=== PATIENT | female | born 1940 | race American Indian/Alaskan Native ===

== ENCOUNTER 2016-04-15 02:34 | Inpatient (IN) | payer MEDICARE ==
[2016-04-15 04:14] LABS: Hematocrit 33.1 % (30.3-42.9); Hemoglobin 10.3 gm/dl (10.1-14.3); Mean Corpuscular HGB Conc 31 % (30-34); Mean Corpuscular Hemoglobin 29 pg (28-32); Mean Corpuscular Volume 95 fl (79-97); Platelet Count 191 K/mm3 (140-440); Red Blood Count 3.48 M/mm3 (3.65-5.03); Red Cell Distribution Width 17.9 % (13.2-15.2); White Blood Count 8.2 K/mm3 (4.5-11.0)
[2016-04-15] MEDS ORDERED: PROVENTIL IH ONE (04:20)
[2016-04-15] MEDS ORDERED: ATROVENT IH ONE (04:20)
[2016-04-15 04:27] LABS: BUN/Creatinine Ratio 5.34; Calcium 9.2 mg/dL (8.4-10.2); Potassium 5.3 mmol/L (3.6-5.0)
[2016-04-15 05:35] LABS: Basophils % (Manual) 0 % (0.0-1.8); Blastocytes % (Manual) 0 %; Eosinophils % (Manual) 0 % (0.0-4.3)
[2016-04-15 05:36] LABS: Diff Status Complete; Platelet Estimate Consistent w Auto; RBC Morphology Normal
--- NOTE | 2016-04-15 07:45 | Emergency Department Report ---
HPI - General Chief Complaint: Dyspnea/Respdistress Time Seen by Provider: 04/15/16 07:18 - HPI HPI: Chief complaint: Shortness Breath HPI: Patient is a 76-year-old female with a history of end-stage renal disease on hemodialysis, diabetes, hypertension and asthma who presents with shortness of breath. Patient is an extremely poor historian but apparently she was admitted to [facility] for similar complaint. EMS state her last dialysis was Sunday but patient is unsure. According to EMS patient was discharged yesterday from [facility]. Patient was given a nebulizer treatment in route which she states improved her breathing. Mode of arrival: EMS Source: Patient old chart and nursing notes Began: Unable to assess Duration: Context: See above Quality: Denies pain Severity: 0 out of 10 Improved with: Nebulizer treatment Worsened with: Laying flat Associated signs and symptoms: Patient states she had nausea and vomiting last week while she was admitted to the hospital. ED Past Medical Hx - Past Medical History Hx Hypertension: Yes Hx Diabetes: Yes Hx Renal Disease: Yes (dialysis MWF) Hx Asthma: Yes - Surgical History Additional Surgical History: hysterectomy. fistula to left upper arm - Social History Smoking Status: Never Smoker Substance Use Type: None - Medications Home Medications: Home Medications Medication Instructions Recorded Confirmed Last Taken Type Cholecalciferol (Vitamin D3) 2,000 units PO QDAY 04/20/13 04/15/16 Unknown History [D3-2000] Cinacalcet [Sensipar] 30 mg PO QDAY 04/20/13 04/15/16 Unknown History FLUoxetine HCL [PROzac] 20 mg PO DAILY 04/20/13 04/15/16 Unknown History Gabapentin 300 mg PO QHS 04/20/13 04/15/16 Unknown History Hydralazine HCl [hydrALAZINE] 100 mg PO TID 04/20/13 04/15/16 Unknown History Hydroxyzine HCl [hydrOXYzine] 25 mg PO Q4-6H PRN 04/20/13 04/15/16 Unknown History Lisinopril [Zestril TAB] 40 mg PO DAILY 04/20/13 04/15/16 Unknown History Loratadine [Claritin] 10 mg PO QDAY 04/20/13 04/15/16 Unknown History Metoprolol [Lopressor TAB] 100 mg PO DAILY 04/20/13 04/15/16 Unknown History Omeprazole [PriLOSEC] 40 mg PO DAILY 04/20/13 04/15/16 Unknown History Sennosides [Senna Lax] 8.6 mg PO PRN PRN 04/20/13 04/15/16 Unknown History Sevelamer Carbonate [Renvela] 800 mg PO TID 04/20/13 04/15/16 Unknown History cloNIDine [Catapres] 0.2 mg PO TID 04/20/13 04/15/16 Unknown History Albuterol Sulfate [Albuterol 0.63% 0.63 mg IH TID PRN #50 dose 04/23/13 Unknown Rx NEBS] amLODIPine [Norvasc] 10 mg PO DAILY #30 tab 04/23/13 04/15/16 Unknown Rx ALBUTEROL Inhaler [ProAir HFA 1 - 2 puff IH Q4H PRN #1 inha 09/02/15 04/15/16 Unknown Rx Inhaler] AtorvaSTATin [Lipitor] 40 mg PO QDAY 09/02/15 04/15/16 Unknown History Doxycycline Monohydrate 100 mg PO BID 09/02/15 04/15/16 Unknown History [Doxycycline Monohydrate CAP] Folic Acid/Vit B Comp W-C [Renal 1 cap PO QDAY 09/02/15 04/15/16 Unknown History Caps] LORazepam [Ativan] 0.5 mg PO Q8H PRN 09/02/15 04/15/16 Unknown History Ondansetron [Zofran TAB] 4 mg PO Q8HR PRN 09/02/15 04/15/16 Unknown History Prednisone [predniSONE 10 mg 10 mg PO .TAPER #1 tab.ds.pk 09/02/15 04/15/16 Unknown Rx (6-Day Pack, 21 Tabs)] Prednisone [predniSONE 10 mg 10 mg PO .TAPER #1 tab.ds.pk 03/24/16 04/15/16 Unknown Rx (6-Day Pack, 21 Tabs)] ED Review of Systems ROS: Stated complaint: DOUGLAS Other details as noted in HPI Comment: Unobtainable due to pts medical conditions Physical Exam - Physical Exam Vital Signs: Vital Signs 04/15/16 04/15/16 04/15/16 02:42 03:00 03:10 Temperature Pulse Rate 79 79 Respiratory 12 22 Rate Blood Pressure 142/69 Blood Pressure [Left] O2 Sat by Pulse 100 100 100 Oximetry 04/15/16 04/15/16 04/15/16 03:14 04:01 05:00 Temperature 98 F Pulse Rate 80 77 73 Respiratory 16 18 15 Rate Blood Pressure 119/62 104/64 Blood Pressure 140/73 [Left] O2 Sat by Pulse 98 99 95 Oximetry 04/15/16 04/15/16 05:45 06:00 Temperature Pulse Rate 75 73 Respiratory 15 14 Rate Blood Pressure 118/59 120/54 Blood Pressure [Left] O2 Sat by Pulse 98 100 Oximetry Physical Exam: GENERAL: The patient is elderly -[place]ir[place] female in no acute distress. HEENT: Normocephalic. Atraumatic. Extraocular motions are intact. Patient has moist mucous membranes. NECK: Supple. No meningitic signs are noted. There is no adenopathy noted. CHEST/LUNGS: Lateral wheezing. There is no respiratory distress noted. HEART/CARDIOVASCULAR: Regular. There is no tachycardia. There is no gallop rub or murmur. ABDOMEN: Abdomen is soft, nontender. Patient has normal bowel sounds. There is no abdominal distention. SKIN: There is no rash. There is no edema. There is no diaphoresis. NEURO: The patient is awake, alert, and oriented 2. The patient is cooperative. The patient has no focal neurologic deficits. The patient has normal speech. MUSCULOSKELETAL: There is no tenderness or deformity. There is no limitation range of motion. There is no evidence of acute injury. ED Course Vital Signs 04/15/16 04/15/16 04/15/16 02:42 03:00 03:10 Temperature Pulse Rate 79 79 Respiratory 12 22 Rate Blood Pressure 142/69 Blood Pressure [Left] O2 Sat by Pulse 100 100 100 Oximetry 04/15/16 04/15/16 04/15/16 03:14 04:01 05:00 Temperature 98 F Pulse Rate 80 77 73 Respiratory 16 18 15 Rate Blood Pressure 119/62 104/64 Blood Pressure 140/73 [Left] O2 Sat by Pulse 98 99 95 Oximetry 04/15/16 04/15/16 05:45 06:00 Temperature Pulse Rate 75 73 Respiratory 15 14 Rate Blood Pressure 118/59 120/54 Blood Pressure [Left] O2 Sat by Pulse 98 100 Oximetry - Reevaluation(s) Reevaluation #1: 04/15/16 07:58 Dr. Santiago consulted. Reevaluation #2: 04/15/16 After my initial exam of the patient, I was informed by the nurse the patient had suddenly become more short of breath and warm reexam she was sitting up with significant difficulty breathing and decreased decreased breath sounds throughout and diaphoresis. Patient was given nebulizer treatment and placed on BiPAP. Patient be admitted to the hospitalist and emergency dialysis arranged. ED Medical Decision Making - Lab Data Result diagrams: 04/15/16 03:53 04/15/16 03:53 Laboratory Tests 04/15/16 03:53 Calcium 9.2 Troponin T 0.149 H* Triglycerides 46 Cholesterol 154 LDL Cholesterol Direct 48 L HDL Cholesterol 97 H Cholesterol/HDL Ratio 1.58 - EKG Data -: EKG Interpreted by Me EKG shows normal: sinus rhythm Rate: normal (71) - EKG Data When compared to previous EKG there are: changes noted (peak T waves are new.) - Radiology Data interpreted by me: Chest x-ray shows pulmonary edema. Critical care attestation.: If time is entered above; I have spent that time in minutes in the direct care of this critically ill patient, excluding procedure time. ED Disposition Clinical Impression: Asthma exacerbation, Acute on chronic renal failure Disposition: OP ADMITTED IP TO THIS HOSP Is pt being admited?: Yes Does the pt Need Aspirin: Yes Condition: Serious Time of Disposition: 07:58 (admit to the hospitalist)
[2016-04-15] MEDS ORDERED: NACL 0.9% 1000 ML 100 ML IV PRN (07:54)
[2016-04-15] MEDS ORDERED: PROCRIT IV PRN (07:54)
--- NOTE | 2016-04-15 07:58 | Consultation ---
Medications and Allergies Allergies Allergy/AdvReac Type Severity Reaction Status Date / Time No Known Allergies Allergy Unverified 04/20/13 02:00 Home Medications Medication Instructions Recorded Confirmed Last Taken Type Cholecalciferol (Vitamin D3) 2,000 units PO QDAY 04/20/13 04/15/16 Unknown History [D3-2000] Cinacalcet [Sensipar] 30 mg PO QDAY 04/20/13 04/15/16 Unknown History FLUoxetine HCL [PROzac] 20 mg PO DAILY 04/20/13 04/15/16 Unknown History Gabapentin 300 mg PO QHS 04/20/13 04/15/16 Unknown History Hydralazine HCl [hydrALAZINE] 100 mg PO TID 04/20/13 04/15/16 Unknown History Hydroxyzine HCl [hydrOXYzine] 25 mg PO Q4-6H PRN 04/20/13 04/15/16 Unknown History Lisinopril [Zestril TAB] 40 mg PO DAILY 04/20/13 04/15/16 Unknown History Loratadine [Claritin] 10 mg PO QDAY 04/20/13 04/15/16 Unknown History Metoprolol [Lopressor TAB] 100 mg PO DAILY 04/20/13 04/15/16 Unknown History Omeprazole [PriLOSEC] 40 mg PO DAILY 04/20/13 04/15/16 Unknown History Sennosides [Senna Lax] 8.6 mg PO PRN PRN 04/20/13 04/15/16 Unknown History Sevelamer Carbonate [Renvela] 800 mg PO TID 04/20/13 04/15/16 Unknown History cloNIDine [Catapres] 0.2 mg PO TID 04/20/13 04/15/16 Unknown History Albuterol Sulfate [Albuterol 0.63% 0.63 mg IH TID PRN #50 dose 04/23/13 Unknown Rx NEBS] amLODIPine [Norvasc] 10 mg PO DAILY #30 tab 04/23/13 04/15/16 Unknown Rx ALBUTEROL Inhaler [ProAir HFA 1 - 2 puff IH Q4H PRN #1 inha 09/02/15 04/15/16 Unknown Rx Inhaler] AtorvaSTATin [Lipitor] 40 mg PO QDAY 09/02/15 04/15/16 Unknown History Doxycycline Monohydrate 100 mg PO BID 09/02/15 04/15/16 Unknown History [Doxycycline Monohydrate CAP] Folic Acid/Vit B Comp W-C [Renal 1 cap PO QDAY 09/02/15 04/15/16 Unknown History Caps] LORazepam [Ativan] 0.5 mg PO Q8H PRN 09/02/15 04/15/16 Unknown History Ondansetron [Zofran TAB] 4 mg PO Q8HR PRN 09/02/15 04/15/16 Unknown History Prednisone [predniSONE 10 mg 10 mg PO .TAPER #1 tab.ds.pk 09/02/15 04/15/16 Unknown Rx (6-Day Pack, 21 Tabs)] Prednisone [predniSONE 10 mg 10 mg PO .TAPER #1 tab.ds.pk 03/24/16 04/15/16 Unknown Rx (6-Day Pack, 21 Tabs)] Review of Systems Constitutional: fatigue, weakness, malaise Cardiovascular: shortness of breath, dyspnea on exertion, paroxysmal nocturnal dyspnea, decreased exercise tolerance Respiratory: shortness of breath, dyspnea on exertion, congestion, wheezing Exam - Vital Signs Vital signs: Vital Signs Pulse Ox 100 04/15/16 02:42 - Physical Exam Narrative exam: General appearance: well-developed, well-nourished EENT: ATNC Neck: Present: neck supple Respiratory: Clear to Ascultation Heart: regular, S1S2 Gastrointestinal: Present: normal. Absent: tenderness, distended Integumentary: no rash Neurologic: no focal deficit Musculoskeletal: Present: other (no edema) Psychiatric: cooperative Results - Lab Results 04/15/16 03:53 04/15/16 03:53 Most recent lab results Calcium 9.2 mg/dL (8.4-10.2) 04/15/16 03:53 Assessment and Plan Impression: * End stage renal disease * Asthma excascerbation * Hyperkalemia * Hypertension * Anemia secondary to ESRD * Secondary hyperparathyoridism Plan: * Hemodialysis today and tthsat * UF as tolerated * Epogen with dialysis * asthma control, needs pulmonary input * Continue home medications * Renal diet
[2016-04-15] MEDS ORDERED: ASPIRIN PO ONE (08:06)
[2016-04-15] MEDS ORDERED: ZOFRAN IV PRN (09:07)
[2016-04-15] MEDS ORDERED: MILK OF MAGNESIA PO PRN (09:07)
[2016-04-15] MEDS ORDERED: NORCO 5/325 PO PRN (09:07)
[2016-04-15] MEDS ORDERED: TYLENOL PO PRN (09:07)
[2016-04-15] MEDS ORDERED: DULCOLAX PR PRN (09:07)
--- NOTE | 2016-04-15 09:07 | History and Physical Report ---
History of Present Illness Date of examination: 04/15/16 Date of admission: 04/15/16 Chief complaint: shortness of breath History of present illness: Patient is a 76-year-old female with a history of end-stage renal disease on hemodialysis, diabetes, hypertension and asthma who presents with shortness of breath. Patient is an extremely poor historian but apparently she was admitted to [facility] for similar complaint. EMS state her last dialysis was Sunday but patient is unsure. According to EMS patient was discharged yesterday from [facility]. Patient was given a nebulizer treatment in route which she states improved her breathing. In the ER she was placed on BiPAP and was sent for emergent HD. Patient unable to provide any further details, she is getting admitted for further evaluation. Past History Past Medical History: diabetes, dialysis, ESRD, heart failure, hypertension, hyperlipidemia, other (bronchial asthma) Past Surgical History: cholecystectomy, Other (AV fistula) Social history: lives with family, full code. denies: smoking, alcohol abuse, prescription drug abuse Family history: hypertension Medications and Allergies Allergies Allergy/AdvReac Type Severity Reaction Status Date / Time No Known Allergies Allergy Unverified 04/20/13 02:00 Home Medications Medication Instructions Recorded Confirmed Last Taken Type Cholecalciferol (Vitamin D3) 2,000 units PO QDAY 04/20/13 04/15/16 Unknown History [D3-2000] Cinacalcet [Sensipar] 30 mg PO QDAY 04/20/13 04/15/16 Unknown History FLUoxetine HCL [PROzac] 20 mg PO DAILY 04/20/13 04/15/16 Unknown History Gabapentin 300 mg PO QHS 04/20/13 04/15/16 Unknown History Hydralazine HCl [hydrALAZINE] 100 mg PO TID 04/20/13 04/15/16 Unknown History Hydroxyzine HCl [hydrOXYzine] 25 mg PO Q4-6H PRN 04/20/13 04/15/16 Unknown History Lisinopril [Zestril TAB] 40 mg PO DAILY 04/20/13 04/15/16 Unknown History Loratadine [Claritin] 10 mg PO QDAY 04/20/13 04/15/16 Unknown History Metoprolol [Lopressor TAB] 100 mg PO DAILY 04/20/13 04/15/16 Unknown History Omeprazole [PriLOSEC] 40 mg PO DAILY 04/20/13 04/15/16 Unknown History Sennosides [Senna Lax] 8.6 mg PO PRN PRN 04/20/13 04/15/16 Unknown History Sevelamer Carbonate [Renvela] 800 mg PO TID 04/20/13 04/15/16 Unknown History cloNIDine [Catapres] 0.2 mg PO TID 04/20/13 04/15/16 Unknown History Albuterol Sulfate [Albuterol 0.63% 0.63 mg IH TID PRN #50 dose 04/23/13 Unknown Rx NEBS] amLODIPine [Norvasc] 10 mg PO DAILY #30 tab 04/23/13 04/15/16 Unknown Rx ALBUTEROL Inhaler [ProAir HFA 1 - 2 puff IH Q4H PRN #1 inha 09/02/15 04/15/16 Unknown Rx Inhaler] AtorvaSTATin [Lipitor] 40 mg PO QDAY 09/02/15 04/15/16 Unknown History Doxycycline Monohydrate 100 mg PO BID 09/02/15 04/15/16 Unknown History [Doxycycline Monohydrate CAP] Folic Acid/Vit B Comp W-C [Renal 1 cap PO QDAY 09/02/15 04/15/16 Unknown History Caps] LORazepam [Ativan] 0.5 mg PO Q8H PRN 09/02/15 04/15/16 Unknown History Ondansetron [Zofran TAB] 4 mg PO Q8HR PRN 09/02/15 04/15/16 Unknown History Prednisone [predniSONE 10 mg 10 mg PO .TAPER #1 tab.ds.pk 09/02/15 04/15/16 Unknown Rx (6-Day Pack, 21 Tabs)] Prednisone [predniSONE 10 mg 10 mg PO .TAPER #1 tab.ds.pk 03/24/16 04/15/16 Unknown Rx (6-Day Pack, 21 Tabs)] Active Meds: Active Medications Epoetin Oh (Procrit) 10,000 unit IV KIRSTEN PRN PRN Reason: hemodialysis Sodium Chloride (Nacl 0.9% 1000 Ml) 100 mls @ 999 mls/hr IV KIRSTEN PRN PRN Reason: Hypotension Review of System: Constitutional: no fever, no chills, no weight loss Ears, eyes, nose, mouth and throat: no nasal congestion, no nasal discharge, no sinus pressure, no vision change, no red eye. Neck: No neck pain or rigidity. Cardiovascular: No chest pain, no orthopnea, no palpitations, no leg swelling Respiratory: + shortness of breath, + cough, no congestion, no wheezing Gastrointestinal: no abdominal pain, no nausea, no vomiting Genitourinary : no dysuria, no hematuria Musculoskeletal: no joint swelling or muscle ache Integumentary: no rash, no pruritis Neurological: no parathesias, no numbness, no tingling Endocrine: no cold or heat intolerance, no polyuria or polydipsia Hematologic/Lymphatic: no easy bruising, no easy bleeding, no gland swelling Allergic/Immunologic: no urticaria, no angioedema. Exam - Physical Exam Narrative exam: GENERAL: This is an elderly -[place] female lying on bed appeared to be in no discomfort. HEENT: Normocephalic. Atraumatic. Extraocular motions are intact. No conjunctival congestion or icterus. Patient has moist mucous membranes. External auditory canal and nares patent bilaterally. NECK: Supple. Trachea midline. No JVD, thyromagaly or lymphadenopathy. CHEST/LUNGS: Diminished BS auscultated bilaterally. There is no respiratory distress noted, breathing nonlabored. No wheezes or rhonchi. HEART/CARDIOVASCULAR: Regular in rate and rhythm. PMI at the apex. There is no gallop rub or murmur. ABDOMEN: Abdomen is soft, nontender. Patient has normal bowel sounds. There is no abdominal distention. No organomagaly or rigidity. SKIN: There is no rash, no erythrema. There is no diaphoresis. Warm and dry. NEUROLOGY: The patient is awake, alert, and oriented. The patient is cooperative. The patient has normal speech. No focal motor deficit. MUSCULOSKELETAL: No joint effusion or tenderness. Muscle strength equal bilaterally. No muscle wasting. EXTRIMITY: No edema, cyanosis or clubbing. PSYCH: No depression or anxiety noted. Cooperative. - Constitutional Vitals: Temp Pulse Resp BP Pulse Ox 98 F 86 20 109/73 99 04/15/16 03:14 04/15/16 07:01 04/15/16 07:05 04/15/16 07:01 04/15/16 07:05 Results - Labs CBC & Chem 7: 04/15/16 03:53 04/16/16 07:11 Labs: Laboratory Last Values WBC 8.2 K/mm3 (4.5-11.0) 04/15/16 03:53 RBC 3.48 M/mm3 (3.65-5.03) L 04/15/16 03:53 Hgb 10.3 gm/dl (10.1-14.3) 04/15/16 03:53 Hct 33.1 % (30.3-42.9) 04/15/16 03:53 MCV 95 fl (79-97) 04/15/16 03:53 MCH 29 pg (28-32) 04/15/16 03:53 MCHC 31 % (30-34) 04/15/16 03:53 RDW 17.9 % (13.2-15.2) H 04/15/16 03:53 Plt Count 191 K/mm3 (140-440) 04/15/16 03:53 Add Manual Diff Complete 04/15/16 03:53 Total Counted 100 04/15/16 03:53 Seg Neutrophils % Customer Advisor 04/15/16 03:53 Seg Neuts % (Manual) 86.0 % (40.0-70.0) H 04/15/16 03:53 Band Neutrophils % 4.0 % 04/15/16 03:53 Lymphocytes % (Manual) 5.0 % (13.4-35.0) L 04/15/16 03:53 Reactive Lymphs % (Man) 0 % 04/15/16 03:53 Monocytes % (Manual) 5.0 % (0.0-7.3) 04/15/16 03:53 Eosinophils % (Manual) 0 % (0.0-4.3) 04/15/16 03:53 Basophils % (Manual) 0 % (0.0-1.8) 04/15/16 03:53 Metamyelocytes % 0 % 04/15/16 03:53 Myelocytes % 0 % 04/15/16 03:53 Promyelocytes % 0 % 04/15/16 03:53 Blast Cells % 0 % 04/15/16 03:53 Nucleated RBC % Not Reportable 04/15/16 03:53 Seg Neutrophils # Man 7.1 K/mm3 (1.8-7.7) 04/15/16 03:53 Band Neutrophils # 0.3 K/mm3 04/15/16 03:53 Lymphocytes # (Manual) 0.4 K/mm3 (1.2-5.4) L 04/15/16 03:53 Abs React Lymphs (Man) 0.0 K/mm3 04/15/16 03:53 Monocytes # (Manual) 0.4 K/mm3 (0.0-0.8) 04/15/16 03:53 Eosinophils # (Manual) 0.0 K/mm3 (0.0-0.4) 04/15/16 03:53 Basophils # (Manual) 0.0 K/mm3 (0.0-0.1) 04/15/16 03:53 Metamyelocytes # 0.0 K/mm3 04/15/16 03:53 Myelocytes # 0.0 K/mm3 04/15/16 03:53 Promyelocytes # 0.0 K/mm3 04/15/16 03:53 Blast Cells # 0.0 K/mm3 04/15/16 03:53 WBC Morphology Not Reportable 04/15/16 03:53 Hypersegmented Neuts Not Reportable 04/15/16 03:53 Hyposegmented Neuts Not Reportable 04/15/16 03:53 Hypogranular Neuts Not Reportable 04/15/16 03:53 Smudge Cells Not Reportable 04/15/16 03:53 Toxic Granulation Not Reportable 04/15/16 03:53 Toxic Vacuolation Not Reportable 04/15/16 03:53 Dohle Bodies Not Reportable 04/15/16 03:53 Pelger-Huet Anomaly Not Reportable 04/15/16 03:53 Tod Rods Not Reportable 04/15/16 03:53 Platelet Estimate Consistent w auto 04/15/16 03:53 Clumped Platelets Not Reportable 04/15/16 03:53 Plt Clumps, EDTA Not Reportable 04/15/16 03:53 Large Platelets Not Reportable 04/15/16 03:53 Giant Platelets Not Reportable 04/15/16 03:53 Platelet Satelliting Not Reportable 04/15/16 03:53 Plt Morphology Comment Not Reportable 04/15/16 03:53 RBC Morphology Normal 04/15/16 03:53 Dimorphic RBCs Not Reportable 04/15/16 03:53 Polychromasia Not Reportable 04/15/16 03:53 Hypochromasia Not Reportable 04/15/16 03:53 Poikilocytosis Not Reportable 04/15/16 03:53 Anisocytosis Not Reportable 04/15/16 03:53 Microcytosis Not Reportable 04/15/16 03:53 Macrocytosis Not Reportable 04/15/16 03:53 Spherocytes Not Reportable 04/15/16 03:53 Pappenheimer Bodies Not Reportable 04/15/16 03:53 Sickle Cells Not Reportable 04/15/16 03:53 Target Cells Not Reportable 04/15/16 03:53 Tear Drop Cells Not Reportable 04/15/16 03:53 Ovalocytes Not Reportable 04/15/16 03:53 Helmet Cells Not Reportable 04/15/16 03:53 [place] Bodies Not Reportable 04/15/16 03:53 [place] Rings Not Reportable 04/15/16 03:53 [place] Cells Not Reportable 04/15/16 03:53 Bite Cells Not Reportable 04/15/16 03:53 Crenated Cell Not Reportable 04/15/16 03:53 Elliptocytes Not Reportable 04/15/16 03:53 Acanthocytes (Spur) Not Reportable 04/15/16 03:53 Rouleaux Not Reportable 04/15/16 03:53 Hemoglobin C Crystals Not Reportable 04/15/16 03:53 Schistocytes Not Reportable 04/15/16 03:53 Malaria parasites Not Reportable 04/15/16 03:53 Hector Bodies Not Reportable 04/15/16 03:53 Hem Pathologist Commnt No 04/15/16 03:53 Sodium 136 mmol/L (137-145) L 04/15/16 03:53 Potassium 5.3 mmol/L (3.6-5.0) H 04/15/16 03:53 Chloride 86.0 mmol/L (98-107) L 04/15/16 03:53 Carbon Dioxide 30 mmol/L (22-30) 04/15/16 03:53 Anion Gap 25 mmol/L 04/15/16 03:53 BUN 46 mg/dL (7-17) H 04/15/16 03:53 Creatinine 8.6 mg/dL (0.7-1.2) H 04/15/16 03:53 Estimated GFR 5 ml/min 04/15/16 03:53 BUN/Creatinine Ratio 5.34 % 04/15/16 03:53 Glucose 156 mg/dL (65-100) H 04/15/16 03:53 Calcium 9.2 mg/dL (8.4-10.2) 04/15/16 03:53 Troponin T 0.149 ng/mL (0.00-0.029) H* 04/15/16 03:53 Triglycerides 46 mg/dL (2-149) 04/15/16 03:53 Cholesterol 154 mg/dL (50-199) 04/15/16 03:53 LDL Cholesterol Direct 48 mg/dL (50-130) L 04/15/16 03:53 HDL Cholesterol 97 mg/dL (40-59) H 04/15/16 03:53 Cholesterol/HDL Ratio 1.58 % 04/15/16 03:53 - Imaging and Cardiology Chest x-ray: report reviewed Assessment and Plan Assessment and plan: Acute respiratory failure * Likely due to asthma exacerbation and volume overload from end-stage renal disease * Treat underlying cause, oxygen supplementation, cont BiPAP Acute exacerbation of bronchial asthma/acute bronchitis * Oxygen titrate O2 sats to more than 90%, nebulizers, IV steroids * Consider pulmonary evaluation if needed Hypertension; moderate control * Resume home antihypertensives, when necessary hydralazine hyperkalemia * likley due to ESRD * cont to monitor Dyslipidemia; * resume lipid-lowering medications Peripheral neuropathy * resume gabapentin End-stage renal disease on hemodialysis * Nephrology consult, dialysis per schedule DVT prophylaxis; with heparin Patient full CODE STATUS, Plan of care discussed with the patient as well as the nurse. Advance Directives: Yes Plan of care discussed with patient/family: Yes
[2016-04-15] MEDS ORDERED: ATIVAN PO PRN (09:09)
[2016-04-15] MEDS ORDERED: ZOFRAN PO PRN (09:09)
[2016-04-15] MEDS ORDERED: SENOKOT PO PRN (09:09)
--- NOTE | 2016-04-15 09:21 | XRay Report ---
AP CHEST :04/15/16 04:01 CLINICAL: Difficulty breathing. COMPARISON:03/23/16 FINDINGS: Interval development of bilateral multilobar interstitial and alveolar lung opacities with greater opacities in the dependent portions of the lungs. Bilateral air bronchograms. The pulmonary vessels are indistinct. Heart is large. No tubes or lines. No pneumothorax. The bones and soft tissues are normal. IMPRESSION: Congestive heart failure with bilateral pulmonary edema.
[2016-04-15] MEDS ORDERED: ZOFRAN IV ONE (10:11)
[2016-04-15] MEDS ORDERED: ATARAX PO PRN (10:11)
[2016-04-15] MEDS ORDERED: NACL 0.9 (PRIMING MACHINE ONLY DIALYSIS) MC ONE (13:21)
[2016-04-15] MEDS ORDERED: NORVASC ONE (14:36)
[2016-04-15] MEDS ORDERED: ASPIRIN ONE (14:36)
[2016-04-15] MEDS ORDERED: PROzac ONE (14:36)
[2016-04-15] MEDS: LOPRESSOR PO SCH (14:43)
[2016-04-15] MEDS: ZESTRIL PO SCH (14:44)
[2016-04-15] MEDS: PEPCID PO SCH (14:44)
[2016-04-15] MEDS: RENVELA PO SCH ×2 (14:44→17:09)
[2016-04-15] MEDS: NORVASC PO SCH (14:44)
[2016-04-15] MEDS: Renal Caps PO SCH (14:44)
[2016-04-15] MEDS: PROzac PO SCH (14:44)
[2016-04-15] MEDS: SENSIPAR PO SCH (14:44)
[2016-04-15] MEDS: VITAMIN D3 PO SCH (14:44)
[2016-04-15] MEDS ORDERED: CATAPRES ONE (15:28)
[2016-04-15] MEDS ORDERED: APRESOLINE ONE (15:28)
[2016-04-15] MEDS: CATAPRES PO SCH ×2 (15:32→21:46)
[2016-04-15] MEDS: APRESOLINE PO SCH ×2 (15:34→21:46)
[2016-04-15] MEDS: DUONEB 0.5 MG-3 MG/3 ML SOLN IH SCH ×2 (15:37→19:42)
[2016-04-15] MEDS ORDERED: HEPARIN ONE (15:55)
[2016-04-15] MEDS: HEPARIN SUB-Q SCH ×2 (15:59→21:48)
[2016-04-15] MEDS ORDERED: LEVAQUIN 250MG/50ML 50 ML IV SCH (16:00)
[2016-04-15] MEDS: CLARITIN PO SCH (17:07)
[2016-04-15] MEDS: PULMICORT IH SCH (19:42)
[2016-04-15] MEDS: NEURONTIN PO SCH (21:46)
[2016-04-16] MEDS: DUONEB 0.5 MG-3 MG/3 ML SOLN IH SCH ×4 (01:39→20:58)
[2016-04-16] MEDS: HEPARIN SUB-Q SCH ×3 (05:47→22:00)
[2016-04-16] MEDS: RENVELA PO SCH ×3 (08:30→17:48)
[2016-04-16] MEDS: APRESOLINE PO SCH ×3 (08:30→20:19)
[2016-04-16] MEDS: CATAPRES PO SCH ×3 (08:30→20:19)
[2016-04-16] MEDS: PULMICORT IH SCH ×2 (08:34→20:58)
[2016-04-16] MEDS: LOPRESSOR PO SCH (10:36)
[2016-04-16] MEDS: PROzac PO SCH (10:36)
[2016-04-16] MEDS: ZESTRIL PO SCH (10:36)
[2016-04-16] MEDS: Renal Caps PO SCH (10:37)
[2016-04-16] MEDS: PEPCID PO SCH (10:37)
[2016-04-16] MEDS: VITAMIN D3 PO SCH (10:37)
[2016-04-16] MEDS: NORVASC PO SCH (10:38)
[2016-04-16] MEDS: SENSIPAR PO SCH (10:38)
[2016-04-16] MEDS: CLARITIN PO SCH (10:38)
[2016-04-16 10:40] LABS: BUN/Creatinine Ratio 5.08; Calcium 8.2 mg/dL (8.4-10.2); Chloride 85.4 mmol/L (98-107)
[2016-04-16] MEDS ORDERED: KAYEXALATE PO PRN (12:58)
[2016-04-16] MEDS ORDERED: CALCIUM GLUCONATE 2,000 MG in NACL 0.9% 100 ML IV ONE (12:59)
[2016-04-16] MEDS ORDERED: KAYEXALATE PO ONE (13:37)
--- NOTE | 2016-04-16 13:40 | Progress Note ---
Assessment and Plan Impression: * End stage renal disease * Asthma excascerbation * Hyperkalemia * Hypertension * Anemia secondary to ESRD * Secondary hyperparathyoridism Plan: * Hemodialysis q tthsat * UF as tolerated * Epogen with dialysis * asthma control, needs pulmonary input * Continue home medications * Renal diet Subjective Date of service: 04/16/16 Principal diagnosis: esrd Interval history: resting in bed today, feels better Objective - Exam Narrative Exam: General appearance: well-developed, well-nourished EENT: ATNC Neck: Present: neck supple Respiratory: Clear to Ascultation Heart: regular, S1S2 Gastrointestinal: Present: normal. Absent: tenderness, distended Integumentary: no rash Neurologic: no focal deficit Musculoskeletal: Present: other (no edema) Psychiatric: cooperative - Vital Signs Vital signs: Vital Signs - 12hr 04/16/16 04/16/16 04/16/16 01:52 05:09 06:39 Temperature 98.3 F Pulse Rate 66 Pulse Rate [ 67 Right Radial] Pulse Rate [ 67 Throughout] Respiratory 20 Rate Respiratory 18 Rate [ Throughout] Blood Pressure 144/63 [Right Arm] O2 Sat by Pulse 98 Oximetry 04/16/16 04/16/16 04/16/16 08:10 08:33 08:34 Temperature 98.5 F Pulse Rate Pulse Rate [ 68 Right Radial] Pulse Rate [ 70 Throughout] Respiratory 20 Rate Respiratory 16 Rate [ Throughout] Blood Pressure 137/65 [Right Arm] O2 Sat by Pulse 100 100 Oximetry 04/16/16 04/16/16 04/16/16 08:47 11:35 11:50 Temperature 98.4 F Pulse Rate 65 Pulse Rate [ 72 Right Radial] Pulse Rate [ 71 Throughout] Respiratory 20 Rate Respiratory 16 Rate [ Throughout] Blood Pressure 139/63 [Right Arm] O2 Sat by Pulse 100 Oximetry 04/16/16 04/16/16 13:22 13:32 Temperature Pulse Rate Pulse Rate [ Right Radial] Pulse Rate [ 64 62 Throughout] Respiratory Rate Respiratory 16 16 Rate [ Throughout] Blood Pressure [Right Arm] O2 Sat by Pulse Oximetry - Lab 04/15/16 03:53 04/16/16 07:11 Most recent lab results Calcium 8.2 mg/dL (8.4-10.2) L 04/16/16 07:11
[2016-04-16] MEDS: SODIUM BICARBONATE PO SCH ×2 (14:57→20:18)
--- NOTE | 2016-04-16 16:05 | Progress Note ---
Assessment and Plan Assessment and plan: Acute respiratory failure * Likely due to asthma exacerbation and volume overload from end-stage renal disease * Treat underlying cause, oxygen supplementation, cont BiPAP Acute exacerbation of bronchial asthma/acute bronchitis * Oxygen titrate O2 sats to more than 90%, nebulizers, IV steroids * consult pulmonary * Assess for home O2 requirement Hypertension; moderate control * Resume home antihypertensives, when necessary hydralazine hyperkalemia * likley due to ESRD * Place patient on sodium bicarbonate, and Kayexalate when necessary potassium more than 5.2 * Given 2 g of calcium gluconate, repeat k level today Dyslipidemia; * resume lipid-lowering medications Peripheral neuropathy * resume gabapentin End-stage renal disease on hemodialysis * Nephrology consult, dialysis per schedule DVT prophylaxis; with heparin Patient full CODE STATUS, Plan of care discussed with the patient as well as the nurse. History Interval history: Patient seen and examined. Medical records and medication list reviewed. No acute event overnight noted by the RN. Patient complains of difficulty breathing on minimal exertion. Patient is tolerating diet. She was recently admitted to [facility] for asthma exacerbation She states that she is having multiple at the Asthma during the winter She also wants to get evaluated for home O2 requirement Discussed plan of care at bedside with patient. Hospitalist Physical - Physical exam Narrative exam: GENERAL: This is an elderly -[place] female lying on bed appeared to be in no discomfort. HEENT: Normocephalic. Atraumatic. Extraocular motions are intact. No conjunctival congestion or icterus. Patient has moist mucous membranes. External auditory canal and nares patent bilaterally. NECK: Supple. Trachea midline. No JVD, thyromagaly or lymphadenopathy. CHEST/LUNGS: Diminished BS auscultated bilaterally. There is no respiratory distress noted, breathing nonlabored. No wheezes or rhonchi. HEART/CARDIOVASCULAR: Regular in rate and rhythm. PMI at the apex. There is no gallop rub or murmur. ABDOMEN: Abdomen is soft, nontender. Patient has normal bowel sounds. There is no abdominal distention. No organomagaly or rigidity. SKIN: There is no rash, no erythrema. There is no diaphoresis. Warm and dry. NEUROLOGY: The patient is awake, alert, and oriented. The patient is cooperative. The patient has normal speech. No focal motor deficit. MUSCULOSKELETAL: No joint effusion or tenderness. Muscle strength equal bilaterally. No muscle wasting. EXTRIMITY: No edema, cyanosis or clubbing. PSYCH: No depression or anxiety noted. Cooperative. - Constitutional Vitals: Temp Pulse Resp BP Pulse Ox 98.4 F 62 16 139/63 100 04/16/16 11:50 04/16/16 13:32 04/16/16 13:32 04/16/16 11:50 04/16/16 11:50 Results - Labs CBC & Chem 7: 04/15/16 03:53 04/16/16 07:11 Labs: Laboratory Last Values WBC 8.2 K/mm3 (4.5-11.0) 04/15/16 03:53 RBC 3.48 M/mm3 (3.65-5.03) L 04/15/16 03:53 Hgb 10.3 gm/dl (10.1-14.3) 04/15/16 03:53 Hct 33.1 % (30.3-42.9) 04/15/16 03:53 MCV 95 fl (79-97) 04/15/16 03:53 MCH 29 pg (28-32) 04/15/16 03:53 MCHC 31 % (30-34) 04/15/16 03:53 RDW 17.9 % (13.2-15.2) H 04/15/16 03:53 Plt Count 191 K/mm3 (140-440) 04/15/16 03:53 Add Manual Diff Complete 04/15/16 03:53 Total Counted 100 04/15/16 03:53 Seg Neutrophils % Ditcher Operator 04/15/16 03:53 Seg Neuts % (Manual) 86.0 % (40.0-70.0) H 04/15/16 03:53 Band Neutrophils % 4.0 % 04/15/16 03:53 Lymphocytes % (Manual) 5.0 % (13.4-35.0) L 04/15/16 03:53 Reactive Lymphs % (Man) 0 % 04/15/16 03:53 Monocytes % (Manual) 5.0 % (0.0-7.3) 04/15/16 03:53 Eosinophils % (Manual) 0 % (0.0-4.3) 04/15/16 03:53 Basophils % (Manual) 0 % (0.0-1.8) 04/15/16 03:53 Metamyelocytes % 0 % 04/15/16 03:53 Myelocytes % 0 % 04/15/16 03:53 Promyelocytes % 0 % 04/15/16 03:53 Blast Cells % 0 % 04/15/16 03:53 Nucleated RBC % Not Reportable 04/15/16 03:53 Seg Neutrophils # Man 7.1 K/mm3 (1.8-7.7) 04/15/16 03:53 Band Neutrophils # 0.3 K/mm3 04/15/16 03:53 Lymphocytes # (Manual) 0.4 K/mm3 (1.2-5.4) L 04/15/16 03:53 Abs React Lymphs (Man) 0.0 K/mm3 04/15/16 03:53 Monocytes # (Manual) 0.4 K/mm3 (0.0-0.8) 04/15/16 03:53 Eosinophils # (Manual) 0.0 K/mm3 (0.0-0.4) 04/15/16 03:53 Basophils # (Manual) 0.0 K/mm3 (0.0-0.1) 04/15/16 03:53 Metamyelocytes # 0.0 K/mm3 04/15/16 03:53 Myelocytes # 0.0 K/mm3 04/15/16 03:53 Promyelocytes # 0.0 K/mm3 04/15/16 03:53 Blast Cells # 0.0 K/mm3 04/15/16 03:53 WBC Morphology Not Reportable 04/15/16 03:53 Hypersegmented Neuts Not Reportable 04/15/16 03:53 Hyposegmented Neuts Not Reportable 04/15/16 03:53 Hypogranular Neuts Not Reportable 04/15/16 03:53 Smudge Cells Not Reportable 04/15/16 03:53 Toxic Granulation Not Reportable 04/15/16 03:53 Toxic Vacuolation Not Reportable 04/15/16 03:53 Dohle Bodies Not Reportable 04/15/16 03:53 Pelger-Huet Anomaly Not Reportable 04/15/16 03:53 Tod Rods Not Reportable 04/15/16 03:53 Platelet Estimate Consistent w auto 04/15/16 03:53 Clumped Platelets Not Reportable 04/15/16 03:53 Plt Clumps, EDTA Not Reportable 04/15/16 03:53 Large Platelets Not Reportable 04/15/16 03:53 Giant Platelets Not Reportable 04/15/16 03:53 Platelet Satelliting Not Reportable 04/15/16 03:53 Plt Morphology Comment Not Reportable 04/15/16 03:53 RBC Morphology Normal 04/15/16 03:53 Dimorphic RBCs Not Reportable 04/15/16 03:53 Polychromasia Not Reportable 04/15/16 03:53 Hypochromasia Not Reportable 04/15/16 03:53 Poikilocytosis Not Reportable 04/15/16 03:53 Anisocytosis Not Reportable 04/15/16 03:53 Microcytosis Not Reportable 04/15/16 03:53 Macrocytosis Not Reportable 04/15/16 03:53 Spherocytes Not Reportable 04/15/16 03:53 Pappenheimer Bodies Not Reportable 04/15/16 03:53 Sickle Cells Not Reportable 04/15/16 03:53 Target Cells Not Reportable 04/15/16 03:53 Tear Drop Cells Not Reportable 04/15/16 03:53 Ovalocytes Not Reportable 04/15/16 03:53 Helmet Cells Not Reportable 04/15/16 03:53 [place] Bodies Not Reportable 04/15/16 03:53 [place] Rings Not Reportable 04/15/16 03:53 Dell Cells Not Reportable 04/15/16 03:53 Bite Cells Not Reportable 04/15/16 03:53 Crenated Cell Not Reportable 04/15/16 03:53 Elliptocytes Not Reportable 04/15/16 03:53 Acanthocytes (Spur) Not Reportable 04/15/16 03:53 Rouleaux Not Reportable 04/15/16 03:53 Hemoglobin C Crystals Not Reportable 04/15/16 03:53 Schistocytes Not Reportable 04/15/16 03:53 Malaria parasites Not Reportable 04/15/16 03:53 Hector Bodies Not Reportable 04/15/16 03:53 Hem Pathologist Commnt No 04/15/16 03:53 Sodium 129 mmol/L (137-145) L D 04/16/16 07:11 Potassium 6.0 mmol/L (3.6-5.0) H 04/16/16 07:11 Chloride 85.4 mmol/L (98-107) L 04/16/16 07:11 Carbon Dioxide 26 mmol/L (22-30) 04/16/16 07:11 Anion Gap 24 mmol/L 04/16/16 07:11 BUN 29 mg/dL (7-17) H 04/16/16 07:11 Creatinine 5.7 mg/dL (0.7-1.2) H 04/16/16 07:11 Estimated GFR 9 ml/min 04/16/16 07:11 BUN/Creatinine Ratio 5.08 % 04/16/16 07:11 Glucose 151 mg/dL (65-100) H 04/16/16 07:11 Calcium 8.2 mg/dL (8.4-10.2) L 04/16/16 07:11 Troponin T 0.194 ng/mL (0.00-0.029) H* 04/16/16 13:44 Triglycerides 46 mg/dL (2-149) 04/15/16 03:53 Cholesterol 154 mg/dL (50-199) 04/15/16 03:53 LDL Cholesterol Direct 48 mg/dL (50-130) L 04/15/16 03:53 HDL Cholesterol 97 mg/dL (40-59) H 04/15/16 03:53 Cholesterol/HDL Ratio 1.58 % 04/15/16 03:53
[2016-04-16 19:14] LABS: BUN/Creatinine Ratio 6.25; Potassium 5.5 mmol/L (3.6-5.0)
[2016-04-16] MEDS: NEURONTIN PO SCH (22:19)
[2016-04-17] MEDS: DUONEB 0.5 MG-3 MG/3 ML SOLN IH SCH ×4 (02:09→20:32)
[2016-04-17 06:37] LABS: BUN/Creatinine Ratio 6.66; Calcium 8.3 mg/dL (8.4-10.2); Chloride 86.3 mmol/L (98-107); Potassium 4.6 mmol/L (3.6-5.0)
[2016-04-17] MEDS: HEPARIN SUB-Q SCH ×3 (06:37→22:46)
[2016-04-17] MEDS: PULMICORT IH SCH ×2 (08:30→20:32)
[2016-04-17] MEDS: SODIUM BICARBONATE PO SCH (08:52)
[2016-04-17] MEDS: RENVELA PO SCH ×3 (08:52→18:36)
[2016-04-17] MEDS: APRESOLINE PO SCH ×2 (08:53→15:08)
[2016-04-17] MEDS: CATAPRES PO SCH ×3 (08:53→22:20)
--- NOTE | 2016-04-17 09:02 | Progress Note ---
Assessment and Plan Impression: * End stage renal disease * Asthma excascerbation * Hyperkalemia * Hypertension * Anemia secondary to ESRD * Secondary hyperparathyoridism Plan: * Hemodialysis MWF and regular schedule q tthsat as outpatient * UF as tolerated * cxr pulm edema and chf * Epogen with dialysis * asthma control, needs pulmonary input * Continue home medications * Renal diet Subjective Date of service: 04/17/16 Principal diagnosis: esrd Interval history: resting in bed today, feels better Objective - Exam Narrative Exam: General appearance: well-developed, well-nourished EENT: ATNC Neck: Present: neck supple Respiratory: Clear to Ascultation Heart: regular, S1S2 Gastrointestinal: Present: normal. Absent: tenderness, distended Integumentary: no rash Neurologic: no focal deficit Musculoskeletal: Present: other (no edema) Psychiatric: cooperative - Vital Signs Vital signs: Vital Signs - 12hr 04/16/16 04/16/16 04/16/16 21:03 21:12 21:42 Temperature 98.3 F Pulse Rate Pulse Rate [ 72 Right Radial] Pulse Rate [ 69 Throughout] Respiratory 20 Rate Respiratory 16 Rate [ Throughout] Blood Pressure Blood Pressure 156/67 [Right Arm] O2 Sat by Pulse 100 100 Oximetry 04/16/16 04/17/16 04/17/16 22:00 01:44 02:07 Temperature 98.3 F Pulse Rate Pulse Rate [ 79 Right Radial] Pulse Rate [ 74 Throughout] Respiratory 18 Rate Respiratory 16 Rate [ Throughout] Blood Pressure Blood Pressure 174/76 [Right Arm] O2 Sat by Pulse 96 100 Oximetry 04/17/16 04/17/16 04/17/16 02:22 04:25 05:00 Temperature 98.4 F Pulse Rate 81 Pulse Rate [ 82 Right Radial] Pulse Rate [ 70 Throughout] Respiratory 18 Rate Respiratory 18 Rate [ Throughout] Blood Pressure Blood Pressure 168/70 [Right Arm] O2 Sat by Pulse 100 Oximetry 04/17/16 04/17/16 08:28 08:53 Temperature 98.8 F Pulse Rate 84 Pulse Rate [ 84 Right Radial] Pulse Rate [ Throughout] Respiratory 20 Rate Respiratory Rate [ Throughout] Blood Pressure 181/80 Blood Pressure 181/80 [Right Arm] O2 Sat by Pulse 100 Oximetry - Lab 04/15/16 03:53 04/17/16 05:20 Most recent lab results Calcium 8.3 mg/dL (8.4-10.2) L 04/17/16 05:20
[2016-04-17] MEDS ORDERED: SODIUM BICARBONATE PO PRN (09:53)
[2016-04-17] MEDS ORDERED: LEVAQUIN PO SCH (10:00)
[2016-04-17] MEDS: VITAMIN D3 PO SCH (11:18)
[2016-04-17] MEDS: ZESTRIL PO SCH (11:18)
[2016-04-17] MEDS: CLARITIN PO SCH (11:19)
[2016-04-17] MEDS: LOPRESSOR PO SCH (11:19)
[2016-04-17] MEDS: PROzac PO SCH (11:19)
[2016-04-17] MEDS: Renal Caps PO SCH (11:19)
[2016-04-17] MEDS: NORVASC PO SCH (11:20)
[2016-04-17] MEDS: SENSIPAR PO SCH (11:31)
[2016-04-17] MEDS: PEPCID PO SCH (11:31)
--- NOTE | 2016-04-17 12:44 | Consultation ---
History of Present Illness Reason for consult: dyspnea History of present illness: This is a female w hx of asthma ESRD on hd who came in w sob. She was found to be in volume fluid. She recd HD with improvement of dyspnea. She still reports some wheezing w excertion. She denies any sick contact. Denies any hx of intubation and reports compliance w inhalers at home. She reports no recent ER visit for her asthma alone. Past History Past Medical History: ESRD, hypertension Past Surgical History: Other (dialysis cath) Social history: other (lives at home) Family history: hypertension Medications and Allergies Allergies Allergy/AdvReac Type Severity Reaction Status Date / Time No Known Allergies Allergy Unverified 04/20/13 02:00 Home Medications Medication Instructions Recorded Confirmed Last Taken Type Cholecalciferol (Vitamin D3) 2,000 units PO QDAY 04/20/13 04/15/16 Unknown History [D3-2000] Cinacalcet [Sensipar] 30 mg PO QDAY 04/20/13 04/15/16 Unknown History FLUoxetine HCL [PROzac] 20 mg PO DAILY 04/20/13 04/15/16 Unknown History Gabapentin 300 mg PO QHS 04/20/13 04/15/16 Unknown History Hydralazine HCl [hydrALAZINE] 100 mg PO TID 04/20/13 04/15/16 Unknown History Hydroxyzine HCl [hydrOXYzine] 25 mg PO Q4-6H PRN 04/20/13 04/15/16 Unknown History Lisinopril [Zestril TAB] 40 mg PO DAILY 04/20/13 04/15/16 Unknown History Loratadine [Claritin] 10 mg PO QDAY 04/20/13 04/15/16 Unknown History Metoprolol [Lopressor TAB] 100 mg PO DAILY 04/20/13 04/15/16 Unknown History Omeprazole [PriLOSEC] 40 mg PO DAILY 04/20/13 04/15/16 Unknown History Sennosides [Senna Lax] 8.6 mg PO PRN PRN 04/20/13 04/15/16 Unknown History Sevelamer Carbonate [Renvela] 800 mg PO TID 04/20/13 04/15/16 Unknown History cloNIDine [Catapres] 0.2 mg PO TID 04/20/13 04/15/16 Unknown History Albuterol Sulfate [Albuterol 0.63% 0.63 mg IH TID PRN #50 dose 04/23/13 Unknown Rx NEBS] amLODIPine [Norvasc] 10 mg PO DAILY #30 tab 04/23/13 04/15/16 Unknown Rx ALBUTEROL Inhaler [ProAir HFA 1 - 2 puff IH Q4H PRN #1 inha 09/02/15 04/15/16 Unknown Rx Inhaler] AtorvaSTATin [Lipitor] 40 mg PO QDAY 09/02/15 04/15/16 Unknown History Doxycycline Monohydrate 100 mg PO BID 09/02/15 04/15/16 Unknown History [Doxycycline Monohydrate CAP] Folic Acid/Vit B Comp W-C [Renal 1 cap PO QDAY 09/02/15 04/15/16 Unknown History Caps] LORazepam [Ativan] 0.5 mg PO Q8H PRN 09/02/15 04/15/16 Unknown History Ondansetron [Zofran TAB] 4 mg PO Q8HR PRN 09/02/15 04/15/16 Unknown History Prednisone [predniSONE 10 mg 10 mg PO .TAPER #1 tab.ds.pk 09/02/15 04/15/16 Unknown Rx (6-Day Pack, 21 Tabs)] Prednisone [predniSONE 10 mg 10 mg PO .TAPER #1 tab.ds.pk 03/24/16 04/15/16 Unknown Rx (6-Day Pack, 21 Tabs)] Active Meds: Active Medications Acetaminophen (Tylenol) 650 mg PO Q4H PRN PRN Reason: Pain MILD(1-3)/Fever >100.5/GORMAN Acetaminophen/Hydrocodone Bitart (Shaniko 5/325) 2 each PO Q6H PRN PRN Reason: Pain, Moderate (4-6) Albuterol/Ipratropium (Duoneb 0.5 Mg-3 Mg/3 Ml Soln) 1 ampul IH Q6HRT [facility] Last Admin: 04/17/16 08:30 Dose: 1 ampul Amlodipine Besylate (Norvasc) 10 mg PO DAILY [facility] Last Admin: 04/17/16 11:20 Dose: 10 mg Atorvastatin Calcium (Lipitor) 40 mg PO QHS [facility] Last Admin: 04/16/16 22:19 Dose: 40 mg Bisacodyl (Dulcolax) 10 mg FL QDAY PRN PRN Reason: Constipation unrelieved by MOM Budesonide (Pulmicort) 0.5 mg IH Q12HRT [facility] Last Admin: 04/17/16 08:30 Dose: 0.5 mg Cholecalciferol (Vitamin D3) 2,000 unit PO DAILY [facility] Last Admin: 04/17/16 11:18 Dose: 2,000 unit Cinacalcet (Sensipar) 30 mg PO QDAY [facility] Last Admin: 04/17/16 11:31 Dose: 30 mg Clonidine HCl (Catapres) 0.2 mg PO TID [facility] Last Admin: 04/17/16 08:53 Dose: 0.2 mg Epoetin Oh (Procrit) 10,000 unit IV KIRSTEN PRN PRN Reason: hemodialysis Famotidine (Pepcid) 10 mg PO QDAY [facility] Last Admin: 04/17/16 11:31 Dose: 10 mg Fluoxetine HCl (Prozac) 20 mg PO QDAY [facility] Last Admin: 04/17/16 11:19 Dose: 20 mg Gabapentin (Neurontin) 300 mg PO QHS [facility] Last Admin: 04/16/16 22:19 Dose: 300 mg Heparin Sodium (Porcine) (Heparin) 5,000 unit SUB-Q Q8HR [facility] Last Admin: 04/17/16 06:37 Dose: 5,000 unit Hydralazine HCl (Apresoline) 100 mg PO TID [facility] Last Admin: 04/17/16 08:53 Dose: 100 mg Hydroxyzine HCl (Atarax) 25 mg PO Q6H PRN PRN Reason: Blood Pressure Sodium Chloride (Nacl 0.9% 1000 Ml) 100 mls @ 999 mls/hr IV KIRSTEN PRN PRN Reason: Hypotension Levofloxacin (Levaquin) 500 mg PO Q48HR [facility] Stop: 04/25/16 10:01 Last Admin: 04/17/16 11:19 Dose: 500 mg Lisinopril (Zestril) 40 mg PO DAILY [facility] Last Admin: 04/17/16 11:18 Dose: 40 mg Loratadine (Claritin) 10 mg PO QDAY [facility] Last Admin: 04/17/16 11:19 Dose: 10 mg Lorazepam (Ativan) 0.5 mg PO Q8H PRN PRN Reason: Anxiety Magnesium Hydroxide (Milk Of Magnesia) 30 ml PO Q4H PRN PRN Reason: Constipation Methylprednisolone Sodium Succinate (Solu-Medrol) 40 mg IV Q8HR [facility] Last Admin: 04/17/16 06:37 Dose: 40 mg Metoprolol Tartrate (Lopressor) 100 mg PO DAILY [facility] Last Admin: 04/17/16 11:19 Dose: 100 mg Multivit/Ca Carb/B Cmplx/FA/Prenat (Renal Caps) 1 cap PO QDAY [facility] Last Admin: 04/17/16 11:19 Dose: 1 cap Ondansetron HCl (Zofran) 4 mg PO Q8H PRN PRN Reason: Nausea Ondansetron HCl (Zofran) 4 mg IV Q8H PRN PRN Reason: N/V unrelieved by Benji Guzmán (Senokot) 8.6 mg PO PRN PRN PRN Reason: Constipation Sevelamer Carbonate (Renvela) 800 mg PO TIDWM [facility] Last Admin: 04/17/16 11:18 Dose: 800 mg Sodium Bicarbonate (Sodium Bicarbonate) 650 mg PO TID PRN PRN Reason: FOR K > 5.1 Sodium Polystyrene Sulfonate (Kayexalate) 15 gm PO Q6HR PRN PRN Reason: Hyperkalemia Review of Systems Constitutional: poor appetite Ears, nose, mouth and throat: nasal discharge, post-nasal drip Respiratory: shortness of breath Gastrointestinal: indigestion, belching Physical Examination Vital signs: Vital Signs Pulse Ox 100 04/15/16 02:42 General appearance: no acute distress, alert Eyes: non-icteric ENT: oropharynx moist Neck: supple Effort: normal Ascultation: Bilateral: clear Cardiovascular: regular rate and rhythm Gastrointestinal: normoactive bowel sounds, soft, non-distended Integumentary: normal Musculoskeletal: no deformities Gait: normal gait Results - Laboratory Findings CBC and BMP: 04/15/16 03:53 04/17/16 05:20 Abnormal lab findings: Abnormal Labs 04/15/16 04/15/16 04/16/16 12:00 17:58 00:28 Sodium Potassium Chloride Carbon Dioxide BUN Creatinine Glucose Calcium Troponin T 0.211 H* D 0.229 H* 0.236 H* 04/16/16 04/16/16 04/16/16 07:11 13:44 17:46 Sodium 129 L D 134 L Potassium 6.0 H 5.5 H Chloride 85.4 L 87.0 L Carbon Dioxide BUN 29 H 40 H Creatinine 5.7 H 6.4 H Glucose 151 H 196 H Calcium 8.2 L Troponin T 0.194 H* 04/17/16 05:20 Sodium 134 L Potassium Chloride 86.3 L Carbon Dioxide 31 H BUN 48 H Creatinine 7.2 H Glucose 229 H Calcium 8.3 L Troponin T - Diagnostic Findings Chest x-ray: report reviewed, image reviewed
--- NOTE | 2016-04-17 15:43 | Progress Note ---
Hospitalist Physical - Constitutional Vitals: Temp Pulse Resp BP Pulse Ox 98.6 F 68 18 149/71 99 04/17/16 12:01 04/17/16 13:51 04/17/16 13:51 04/17/16 12:01 04/17/16 12:01 Results - Labs CBC & Chem 7: 04/15/16 03:53 04/17/16 05:20 Labs: Laboratory Last Values WBC 8.2 K/mm3 (4.5-11.0) 04/15/16 03:53 RBC 3.48 M/mm3 (3.65-5.03) L 04/15/16 03:53 Hgb 10.3 gm/dl (10.1-14.3) 04/15/16 03:53 Hct 33.1 % (30.3-42.9) 04/15/16 03:53 MCV 95 fl (79-97) 04/15/16 03:53 MCH 29 pg (28-32) 04/15/16 03:53 MCHC 31 % (30-34) 04/15/16 03:53 RDW 17.9 % (13.2-15.2) H 04/15/16 03:53 Plt Count 191 K/mm3 (140-440) 04/15/16 03:53 Add Manual Diff Complete 04/15/16 03:53 Total Counted 100 04/15/16 03:53 Seg Neutrophils % Electrician Supervisor 04/15/16 03:53 Seg Neuts % (Manual) 86.0 % (40.0-70.0) H 04/15/16 03:53 Band Neutrophils % 4.0 % 04/15/16 03:53 Lymphocytes % (Manual) 5.0 % (13.4-35.0) L 04/15/16 03:53 Reactive Lymphs % (Man) 0 % 04/15/16 03:53 Monocytes % (Manual) 5.0 % (0.0-7.3) 04/15/16 03:53 Eosinophils % (Manual) 0 % (0.0-4.3) 04/15/16 03:53 Basophils % (Manual) 0 % (0.0-1.8) 04/15/16 03:53 Metamyelocytes % 0 % 04/15/16 03:53 Myelocytes % 0 % 04/15/16 03:53 Promyelocytes % 0 % 04/15/16 03:53 Blast Cells % 0 % 04/15/16 03:53 Nucleated RBC % Not Reportable 04/15/16 03:53 Seg Neutrophils # Man 7.1 K/mm3 (1.8-7.7) 04/15/16 03:53 Band Neutrophils # 0.3 K/mm3 04/15/16 03:53 Lymphocytes # (Manual) 0.4 K/mm3 (1.2-5.4) L 04/15/16 03:53 Abs React Lymphs (Man) 0.0 K/mm3 04/15/16 03:53 Monocytes # (Manual) 0.4 K/mm3 (0.0-0.8) 04/15/16 03:53 Eosinophils # (Manual) 0.0 K/mm3 (0.0-0.4) 04/15/16 03:53 Basophils # (Manual) 0.0 K/mm3 (0.0-0.1) 04/15/16 03:53 Metamyelocytes # 0.0 K/mm3 04/15/16 03:53 Myelocytes # 0.0 K/mm3 04/15/16 03:53 Promyelocytes # 0.0 K/mm3 04/15/16 03:53 Blast Cells # 0.0 K/mm3 04/15/16 03:53 WBC Morphology Not Reportable 04/15/16 03:53 Hypersegmented Neuts Not Reportable 04/15/16 03:53 Hyposegmented Neuts Not Reportable 04/15/16 03:53 Hypogranular Neuts Not Reportable 04/15/16 03:53 Smudge Cells Not Reportable 04/15/16 03:53 Toxic Granulation Not Reportable 04/15/16 03:53 Toxic Vacuolation Not Reportable 04/15/16 03:53 Dohle Bodies Not Reportable 04/15/16 03:53 Pelger-Huet Anomaly Not Reportable 04/15/16 03:53 Tod Rods Not Reportable 04/15/16 03:53 Platelet Estimate Consistent w auto 04/15/16 03:53 Clumped Platelets Not Reportable 04/15/16 03:53 Plt Clumps, EDTA Not Reportable 04/15/16 03:53 Large Platelets Not Reportable 04/15/16 03:53 Giant Platelets Not Reportable 04/15/16 03:53 Platelet Satelliting Not Reportable 04/15/16 03:53 Plt Morphology Comment Not Reportable 04/15/16 03:53 RBC Morphology Normal 04/15/16 03:53 Dimorphic RBCs Not Reportable 04/15/16 03:53 Polychromasia Not Reportable 04/15/16 03:53 Hypochromasia Not Reportable 04/15/16 03:53 Poikilocytosis Not Reportable 04/15/16 03:53 Anisocytosis Not Reportable 04/15/16 03:53 Microcytosis Not Reportable 04/15/16 03:53 Macrocytosis Not Reportable 04/15/16 03:53 Spherocytes Not Reportable 04/15/16 03:53 Pappenheimer Bodies Not Reportable 04/15/16 03:53 Sickle Cells Not Reportable 04/15/16 03:53 Target Cells Not Reportable 04/15/16 03:53 Tear Drop Cells Not Reportable 04/15/16 03:53 Ovalocytes Not Reportable 04/15/16 03:53 Helmet Cells Not Reportable 04/15/16 03:53 Hopson-[place] Bodies Not Reportable 04/15/16 03:53 [place] Rings Not Reportable 04/15/16 03:53 Dell Cells Not Reportable 04/15/16 03:53 Bite Cells Not Reportable 04/15/16 03:53 Crenated Cell Not Reportable 04/15/16 03:53 Elliptocytes Not Reportable 04/15/16 03:53 Acanthocytes (Spur) Not Reportable 04/15/16 03:53 Rouleaux Not Reportable 04/15/16 03:53 Hemoglobin C Crystals Not Reportable 04/15/16 03:53 Schistocytes Not Reportable 04/15/16 03:53 Malaria parasites Not Reportable 04/15/16 03:53 Hector Bodies Not Reportable 04/15/16 03:53 Hem Pathologist Commnt No 04/15/16 03:53 Sodium 134 mmol/L (137-145) L 04/17/16 05:20 Potassium 4.6 mmol/L (3.6-5.0) 04/17/16 05:20 Chloride 86.3 mmol/L (98-107) L 04/17/16 05:20 Carbon Dioxide 31 mmol/L (22-30) H 04/17/16 05:20 Anion Gap 21 mmol/L 04/17/16 05:20 BUN 48 mg/dL (7-17) H 04/17/16 05:20 Creatinine 7.2 mg/dL (0.7-1.2) H 04/17/16 05:20 Estimated GFR 7 ml/min 04/17/16 05:20 BUN/Creatinine Ratio 6.66 % 04/17/16 05:20 Glucose 229 mg/dL (65-100) H 04/17/16 05:20 Calcium 8.3 mg/dL (8.4-10.2) L 04/17/16 05:20 Troponin T 0.194 ng/mL (0.00-0.029) H* 04/16/16 13:44 Triglycerides 46 mg/dL (2-149) 04/15/16 03:53 Cholesterol 154 mg/dL (50-199) 04/15/16 03:53 LDL Cholesterol Direct 48 mg/dL (50-130) L 04/15/16 03:53 HDL Cholesterol 97 mg/dL (40-59) H 04/15/16 03:53 Cholesterol/HDL Ratio 1.58 % 04/15/16 03:53
[2016-04-17] MEDS: NOVOLOG SUB-Q SCH (22:22)
[2016-04-17] MEDS: NEURONTIN PO SCH (22:52)
[2016-04-18] MEDS: APRESOLINE PO SCH ×3 (06:20→12:59)
[2016-04-18] MEDS: HEPARIN SUB-Q SCH ×2 (06:47→14:00)
[2016-04-18] MEDS: NOVOLOG SUB-Q SCH ×2 (08:32→13:00)
[2016-04-18] MEDS: PULMICORT IH SCH (08:33)
[2016-04-18] MEDS: DUONEB 0.5 MG-3 MG/3 ML SOLN IH SCH ×2 (08:33→14:16)
[2016-04-18] MEDS: CATAPRES PO SCH ×2 (08:58→12:59)
[2016-04-18] MEDS: RENVELA PO SCH ×2 (08:59→11:11)
--- NOTE | 2016-04-18 10:27 | Progress Note ---
Assessment and Plan Impression: * End stage renal disease * Asthma excascerbation * Hyperkalemia * Hypertension * Anemia secondary to ESRD * Secondary hyperparathyoridism Plan: * Uneventful hemodialysis yesterday * Continue Hemodialysis MWF . Her outpatient days are however q tthsat * UF as tolerated * cxr pulm edema and chf * Epogen with dialysis * asthma control seems to be much better * Continue home medications * Renal diet Subjective Date of service: 04/18/16 Principal diagnosis: esrd Interval history: Patient is comfortable today. Her shortness of breath has improved. Denies any nausea or vomiting Objective - Vital Signs Vital signs: Vital Signs - 12hr 04/17/16 04/17/16 04/17/16 22:30 22:45 23:00 Temperature Pulse Rate 67 67 67 Pulse Rate [ Anterior Bilateral Throughout] Pulse Rate [ Apical] Pulse Rate [ Right Radial] Respiratory Rate Respiratory Rate [Anterior Bilateral Throughout] Blood Pressure 125/54 128/57 123/55 Blood Pressure [Right Arm] O2 Sat by Pulse Oximetry 04/17/16 04/17/16 04/17/16 23:15 23:30 23:45 Temperature Pulse Rate 68 67 64 Pulse Rate [ Anterior Bilateral Throughout] Pulse Rate [ Apical] Pulse Rate [ Right Radial] Respiratory Rate Respiratory Rate [Anterior Bilateral Throughout] Blood Pressure 119/61 124/57 125/62 Blood Pressure [Right Arm] O2 Sat by Pulse Oximetry 04/18/16 04/18/16 04/18/16 00:00 00:15 00:30 Temperature Pulse Rate 64 63 64 Pulse Rate [ Anterior Bilateral Throughout] Pulse Rate [ Apical] Pulse Rate [ Right Radial] Respiratory Rate Respiratory Rate [Anterior Bilateral Throughout] Blood Pressure 122/59 115/54 121/54 Blood Pressure [Right Arm] O2 Sat by Pulse Oximetry 04/18/16 04/18/16 04/18/16 00:45 01:04 05:00 Temperature 98.2 F 98.4 F Pulse Rate 68 82 Pulse Rate [ Anterior Bilateral Throughout] Pulse Rate [ 67 Apical] Pulse Rate [ Right Radial] Respiratory 18 20 Rate Respiratory Rate [Anterior Bilateral Throughout] Blood Pressure 141/64 Blood Pressure 124/57 [Right Arm] O2 Sat by Pulse 98 Oximetry 04/18/16 04/18/16 04/18/16 08:30 08:52 08:58 Temperature Pulse Rate 69 Pulse Rate [ 69 67 Anterior Bilateral Throughout] Pulse Rate [ Apical] Pulse Rate [ Right Radial] Respiratory Rate Respiratory 20 20 Rate [Anterior Bilateral Throughout] Blood Pressure 187/76 Blood Pressure [Right Arm] O2 Sat by Pulse 98 Oximetry 04/18/16 09:15 Temperature 98.5 F Pulse Rate Pulse Rate [ Anterior Bilateral Throughout] Pulse Rate [ Apical] Pulse Rate [ 69 Right Radial] Respiratory 16 Rate Respiratory Rate [Anterior Bilateral Throughout] Blood Pressure Blood Pressure 187/76 [Right Arm] O2 Sat by Pulse 96 Oximetry - General Appearance General appearance: well-developed, well-nourished, appears stated age EENT: PERRL, mucous membranes moist Neck: no JVD, no thyromegaly, no carotid bruit, supple Respiratory: Present: Clear to Ascultation Cardiology: regular, normal heart rate Gastrointestinal: normal, normoactive bowel sounds Integumentary: no rash, other (AV fistula in her left upper arm. Good bruit and thrill) - Lab 04/15/16 03:53 04/17/16 05:20 Most recent lab results Calcium 8.3 mg/dL (8.4-10.2) L 04/17/16 05:20
[2016-04-18] MEDS: Renal Caps PO SCH (11:10)
[2016-04-18] MEDS: SENSIPAR PO SCH (11:10)
[2016-04-18] MEDS: PROzac PO SCH (11:10)
[2016-04-18] MEDS: LOPRESSOR PO SCH (11:10)
[2016-04-18] MEDS: ZESTRIL PO SCH (11:11)
[2016-04-18] MEDS: NORVASC PO SCH (11:12)
[2016-04-18] MEDS: CLARITIN PO SCH (11:12)
[2016-04-18] MEDS: VITAMIN D3 PO SCH (11:13)
[2016-04-18] MEDS: PEPCID PO SCH (11:14)
--- NOTE | 2016-04-18 12:21 | Discharge Summary ---
Providers - Providers Date of Admission: 04/15/16 11:24 Date of discharge: 04/18/16 Attending physician: CARMELA LIU 04/16/16 15:59 Consult to Physician [CONS] Routine Consulting Provider: JAZMIN WONG Reason For Exam: recurrent asthma exacerbation Place consult to:: Dr. Wong Notified:: Mary STEWART Phone number called:: Was contact made?: Yes If yes, spoke with:: Catie-answering service Time called:: 16:56 Primary care physician: BAR SUPERVISOR Hospitalization Condition: Fair Disposition: DISCHARGED TO HOME OR SELFCARE - Discharge Diagnoses (1) Acute respiratory failure Status: Acute Qualifiers: Respiratory failure complication: hypoxia Qualified Code(s): J96.01 - Acute respiratory failure with hypoxia (2) Asthma exacerbation Status: Acute (3) End-stage renal disease on hemodialysis Status: Chronic (4) Hypertension Status: Chronic Qualifiers: Hypertension type: essential hypertension Qualified Code(s): I10 - Essential (primary) hypertension (5) Diabetes mellitus type 2 in nonobese Status: Chronic Core Measure Documentation - Palliative Care Palliative Care/ Comfort Measures: Not Applicable - Core Measures Any of the following diagnoses?: none Exam - Constitutional Vitals: Temp Pulse Resp BP Pulse Ox 98.5 F 74 16 140/62 96 04/18/16 09:15 04/18/16 11:28 04/18/16 09:15 04/18/16 11:28 04/18/16 09:15 Plan Activity: no restrictions Diet: low fat, low cholesterol, low salt, diabetic, renal Additional Instructions: 1. Follow up with primary care physician in one week. 2. Follow-up with Dr. Wong, railcar brake operator in 1 week. 3. Continue hemodialysis as scheduled Follow up with: PRIMARY CARE, [Primary Care Provider] - 3-5 Days Prescriptions: Albuterol Sulfate [Ventolin HFA] 2 puff IH Q4H PRN #1 pump PRN Reason: Shortness Of Breath Famotidine [Pepcid] 10 mg PO QDAY #60 tablet Prednisone [predniSONE 10 mg (6-Day Pack, 21 Tabs)] 10 mg PO .TAPER #1 tab.ds.pk
[2016-04-18 17:25] VITALS: BP 128/62
== END 2016-04-18 18:49 | disposition home or self-care (01) | DRG 291 ==
LOC: ED 02:34 → 4A 11:24
PROVIDERS: ADMIT Internal Medicine; ATTEND Internal Medicine
PROC: 5A1D60Z (ICD-10-PCS; principal; 2016-04-15)
PROC: 5A09457 Assistance with Respiratory Ventilation, 24-96 Consecutive Hours, Continuous Positive Airway Pressure (ICD-10-PCS; 2016-04-15)
DX: I13.2 Hypertensive heart and chronic kidney disease with heart failure and with stage 5 chronic kidney disease, or end stage renal disease (principal); J96.01 Acute respiratory failure with hypoxia; N18.6 End stage renal disease; J45.901 Unspecified asthma with (acute) exacerbation; N17.9 Acute kidney failure, unspecified; E87.5 Hyperkalemia; E11.22 Type 2 diabetes mellitus with diabetic chronic kidney disease; D63.1 Anemia in chronic kidney disease; I50.9 Heart failure, unspecified; E78.5 Hyperlipidemia, unspecified; J20.9 Acute bronchitis, unspecified; E11.42 Type 2 diabetes mellitus with diabetic polyneuropathy; E87.70 Fluid overload, unspecified; Z99.2 Dependence on renal dialysis; Z90.710 Acquired absence of both cervix and uterus; Z79.899 Other long term (current) drug therapy; Z90.49 Acquired absence of other specified parts of digestive tract; Z82.49 Family history of ischemic heart disease and other diseases of the circulatory system
CPT/HCPCS: 36415; 71010; 80048; 80061; 82962; 83036; 84484; 85007; 85025; 93005; 93010; 94640; 94760; 96372; 96374; A9270-GY; J0610; J1644; J1815; J1956; J2405; J2920; J2930; J7030

== ENCOUNTER 2016-06-29 11:50 | Inpatient (IN) | payer MEDICARE ==
[2016-06-29] MEDS ORDERED: PROVENTIL IH ONE (13:11)
[2016-06-29 14:00] LABS: Basophils % (Auto) 1.4 % (0.0-1.8); Eosinophils % (Auto) 13.9 % (0.0-4.3); Hematocrit 30.7 % (30.3-42.9); Hemoglobin 9.5 gm/dl (10.1-14.3); Mean Corpuscular HGB Conc 31 % (30-34); Mean Corpuscular Hemoglobin 31 pg (28-32); Mean Corpuscular Volume 99 fl (79-97); Platelet Count 169 K/mm3 (140-440); Red Blood Count 3.12 M/mm3 (3.65-5.03); Red Cell Distribution Width 18.9 % (13.2-15.2)
--- NOTE | 2016-06-29 14:07 | Admit Criteria Form ---
Admission Criteria Documentation: RENAL FAILURE, CHRONIC Clinical Indications for Admission to Inpatient Care (Place 'X' for any and all applicable criteria): Admission is indicated for ANY ONE of the following (1)(2)(3)(4)(5): [X ]I. Inpatient admission required rather than observation care (Use Renal Failure, Chronic: Observation Care Criteria as appropriate) because of ANY ONE of the following: [ ]a) Volume overload or uremic symptoms (eg, clinically significant pulmonary edema, hypertension, pericarditis, acidosis) too severe for, or not responsive (eg, for over 24 hours) to emergency department or observation care dialysis or treatment regimen (11) [ ]b) Hemodynamic instability that is severe or persistent [ ]c) Respiratory distress that is severe or persistent (11) [X ]d) Clinically significant electrolyte abnormality that requires inpatient care (eg,hyperkalemia with severe ECG findings)[B] [ ]e) Supplement O2 or respiratory therapy for over 24hrs that is performable only in acute inpatient setting [ ]f) Continuous IV infusion of anticoagulation, platelet inhibitor, vasoactive, or Antiarrhythmic medication (15), [ ]g) Pulmonary artery catheter monitoring [ ]h) Temporary pacemaker placement [ ]i) Emergent pericardiocentesis [X ]j) Other condition, treatment or monitoring requiring inpatient admission [ ]II. Unexplained syncope [A] [ ]III. Recurrent seizures [ ]IV. Severe infections not treatable in outpatient setting (eg, peritonitis)(9 ) [ ]V. Cardiac arrhythmias of immediate concern [ ]. Encephalopathy [ ]VII.Bleeding abnormalities (eg, platelet dysfunction) with active (eg, gastrointestinal) bleeding Extended stay beyond goal length of stay may be needed for (3)(4)(35)(36): [ ]a) Continuing uremic complications [ ]b) Comorbidities or complications The original [employer] content created by [employer] has been revised. The portions of the content which have been revised are identified through the use of italic text or in bold, and [facility] has neither reviewed nor approved the modified material. All other unmodified content is copyright [employer]. Please see references footnoted in the original [facility] edition 2016 Admission Criteria Met: Yes
[2016-06-29 14:09] LABS: INR 1.12 (0.87-1.13)
[2016-06-29 14:16] LABS: BUN/Creatinine Ratio 4.72; Calcium 8.9 mg/dL (8.4-10.2); Chloride 95.7 mmol/L (98-107); Potassium 5.7 mmol/L (3.6-5.0)
[2016-06-29 14:17] LABS: Phosphorous 2.3 mg/dL (2.5-4.5)
--- NOTE | 2016-06-29 14:24 | Emergency Department Report ---
ED General Adult HPI - General Chief complaint: Nausea/Vomiting/Diarrhea Stated complaint: N/V Time Seen by Provider: 06/29/16 12:44 Source: patient Mode of arrival: Stretcher Limitations: No Limitations - History of Present Illness Initial comments: The patient states that she became nauseated and vomited in dialysis after 10 minutes of her run. She also complained of shortness of breath. For these reasons they sent her to the emergency department. I believe that she has been compliant with her dialysis. However she is a very poor historian and cannot specifically tell me when her last run was nor who her game programer is. She is not complaining of shortness of breath at rest right now. She denies chest pain. Patient personally for her asthma was acting up and she requested a neb treatment when I asked her. Cardiology has made the following recommendations concerning her cardiac status during her last hospitalization. I do not know if she has followed up on these at all. Medical management in setting of her heart failure presentation will be aortic valve replacement with coronary artery bypass to the diagonal, 2 obtuse marginals and the distal right coronary. Okay for discharge home today. F/U with [facility] May 24 as scheduled. She will be referred for CT surgery assessment in the outpatient setting. If she is deemed not a good candidate for valve surgery due to age and multiple comorbidities, we will then plan limited percutaneous revascularization with coronary stenting of the AV groove circumflex and the proximal and mid right coronary. -: Gradual Consistency: intermittent Improves with: none Worsens with: none Associated Symptoms: nausea/vomiting, shortness of breath (wheezing) Treatments Prior to Arrival: none - Related Data Home Medications Medication Instructions Recorded Confirmed Last Taken Cholecalciferol (Vitamin D3) 2,000 units PO QDAY 04/20/13 04/15/16 Unknown [D3-2000] Cinacalcet [Sensipar] 30 mg PO QDAY 04/20/13 04/15/16 Unknown FLUoxetine HCL [PROzac] 20 mg PO DAILY 04/20/13 04/15/16 Unknown Gabapentin 300 mg PO QHS 04/20/13 04/15/16 Unknown Hydroxyzine HCl [hydrOXYzine] 25 mg PO Q4-6H PRN 04/20/13 04/15/16 Unknown Loratadine [Claritin] 10 mg PO QDAY 04/20/13 04/15/16 Unknown Sennosides [Senna Lax] 8.6 mg PO PRN PRN 04/20/13 04/15/16 Unknown Sevelamer Carbonate [Renvela] 800 mg PO TID 04/20/13 04/15/16 Unknown Folic Acid/Vit B Comp W-C [Renal 1 cap PO QDAY 09/02/15 04/15/16 Unknown Caps] Ondansetron [Zofran TAB] 4 mg PO Q8HR PRN 09/02/15 04/15/16 Unknown Previous Rx's Medication Instructions Recorded Last Taken Type Albuterol Sulfate [Albuterol 0.63% 0.63 mg IH TID PRN #50 dose 04/23/13 Unknown Rx NEBS] ALBUTEROL Inhaler [ProAir HFA 1 - 2 puff IH Q4H PRN #1 inha 09/02/15 Unknown Rx Inhaler] Albuterol Sulfate [Ventolin HFA] 2 puff IH Q4H PRN #1 pump 04/18/16 Unknown Rx Famotidine [Pepcid] 10 mg PO QDAY #60 tablet 04/18/16 Unknown Rx glipiZIDE [Glucotrol] 5 mg PO QDAY #30 tablet 04/18/16 Unknown Rx Aspirin EC [Aspirin Enteric Coated 81 mg PO QDAY #30 tablet 05/19/16 Unknown Rx TAB] AtorvaSTATin [Lipitor] 40 mg PO QDAY #30 tablet 05/19/16 Unknown Rx ISOSORBIDE MONOnitrate [Imdur ER] 30 mg PO QDAY #30 tablet 05/19/16 Unknown Rx Metoprolol Xl [Metoprolol 50 mg PO QDAY #30 tablet 05/19/16 Unknown Rx SUCCINATE ER TAB] Allergies Allergy/AdvReac Type Severity Reaction Status Date / Time No Known Allergies Allergy Unverified 04/20/13 02:00 ED Review of Systems ROS: Stated complaint: N/V Other details as noted in HPI Constitutional: denies: chills, fever Eyes: denies: eye pain, eye discharge, vision change ENT: denies: ear pain, throat pain Respiratory: shortness of breath, wheezing. denies: cough Cardiovascular: denies: chest pain, palpitations Endocrine: no symptoms reported Gastrointestinal: denies: abdominal pain, nausea, diarrhea Genitourinary: denies: urgency, dysuria, discharge Musculoskeletal: denies: back pain, joint swelling, arthralgia Skin: denies: rash, lesions Neurological: denies: headache, weakness, paresthesias Psychiatric: denies: anxiety, depression Hematological/Lymphatic: denies: easy bleeding, easy bruising ED Past Medical Hx - Past Medical History Hx Hypertension: Yes Hx Heart Attack/AMI: No Hx Congestive Heart Failure: Yes Hx Diabetes: Yes Hx Deep Vein Thrombosis: No Hx Pulmonary Embolism: No Hx Liver Disease: No Hx Renal Disease: Yes (dialysis MWF) Hx Asthma: Yes Hx COPD: No Hx Tuberculosis: No Hx HIV: No - Surgical History Hx Coronary Stent: No Hx Pacemaker: No Hx Internal Defibrillator: No Additional Surgical History: hysterectomy. fistula to left upper arm - Social History Smoking Status: Former Smoker Substance Use Type: None - Medications Home Medications: Home Medications Medication Instructions Recorded Confirmed Last Taken Type Cholecalciferol (Vitamin D3) 2,000 units PO QDAY 04/20/13 04/15/16 Unknown History [D3-2000] Cinacalcet [Sensipar] 30 mg PO QDAY 04/20/13 04/15/16 Unknown History FLUoxetine HCL [PROzac] 20 mg PO DAILY 04/20/13 04/15/16 Unknown History Gabapentin 300 mg PO QHS 04/20/13 04/15/16 Unknown History Hydroxyzine HCl [hydrOXYzine] 25 mg PO Q4-6H PRN 04/20/13 04/15/16 Unknown History Loratadine [Claritin] 10 mg PO QDAY 04/20/13 04/15/16 Unknown History Sennosides [Senna Lax] 8.6 mg PO PRN PRN 04/20/13 04/15/16 Unknown History Sevelamer Carbonate [Renvela] 800 mg PO TID 04/20/13 04/15/16 Unknown History Albuterol Sulfate [Albuterol 0.63% 0.63 mg IH TID PRN #50 dose 04/23/13 Unknown Rx NEBS] ALBUTEROL Inhaler [ProAir HFA 1 - 2 puff IH Q4H PRN #1 inha 09/02/15 04/15/16 Unknown Rx Inhaler] Folic Acid/Vit B Comp W-C [Renal 1 cap PO QDAY 09/02/15 04/15/16 Unknown History Caps] Ondansetron [Zofran TAB] 4 mg PO Q8HR PRN 09/02/15 04/15/16 Unknown History Albuterol Sulfate [Ventolin HFA] 2 puff IH Q4H PRN #1 pump 04/18/16 Unknown Rx Famotidine [Pepcid] 10 mg PO QDAY #60 tablet 04/18/16 Unknown Rx glipiZIDE [Glucotrol] 5 mg PO QDAY #30 tablet 04/18/16 Unknown Rx Aspirin EC [Aspirin Enteric Coated 81 mg PO QDAY #30 tablet 05/19/16 Unknown Rx TAB] AtorvaSTATin [Lipitor] 40 mg PO QDAY #30 tablet 05/19/16 Unknown Rx ISOSORBIDE MONOnitrate [Imdur ER] 30 mg PO QDAY #30 tablet 05/19/16 Unknown Rx Metoprolol Xl [Metoprolol 50 mg PO QDAY #30 tablet 05/19/16 Unknown Rx SUCCINATE ER TAB] ED Physical Exam - General Limitations: No Limitations General appearance: alert, in no apparent distress - Head Head exam: Present: atraumatic, normocephalic - Eye Eye exam: Present: normal appearance, EOMI. Absent: scleral icterus - ENT ENT exam: Present: normal exam, mucous membranes moist - Neck Neck exam: Present: normal inspection - Respiratory Respiratory exam: Present: decreased breath sounds (somewhat). Absent: respiratory distress - Cardiovascular Cardiovascular Exam: Present: regular rate, normal rhythm. Absent: systolic murmur, diastolic murmur, rubs, gallop - GI/Abdominal GI/Abdominal exam: Present: soft, normal bowel sounds. Absent: distended, tenderness, guarding, rebound, rigid - Extremities Exam Extremities exam: Present: normal inspection - Back Exam Back exam: Present: normal inspection - Neurological Exam Neurological exam: Present: alert, oriented X3, CN II-XII intact. Absent: motor sensory deficit - Psychiatric Psychiatric exam: Present: normal affect, normal mood - Skin Skin exam: Present: warm, dry, intact, normal color. Absent: rash ED Course Vital Signs 06/29/16 06/29/16 06/29/16 12:29 13:20 13:33 Temperature 97.9 F Pulse Rate 74 Pulse Rate [ 72 75 Bilateral Upper Lobe] Respiratory 22 Rate Respiratory 18 18 Rate [Bilateral Upper Lobe] Blood Pressure 142/62 O2 Sat by Pulse 100 Oximetry - Reevaluation(s) Reevaluation #1: Discussed with hospitalist (Dr. Locke) who will be admitting the patient. Discussed with Dr. Venegas's nurse practitioner they will be seeing the patient. Awaiting call from [facility] nephrology for dialysis orders. 06/29/16 14:32 ED Medical Decision Making - Lab Data Result diagrams: 06/29/16 13:38 06/29/16 13:38 Laboratory Results - last 24 hr 06/29/16 06/29/16 06/29/16 13:38 13:38 13:38 WBC 5.0 RBC 3.12 L Hgb 9.5 L Hct 30.7 MCV 99 H MCH 31 MCHC 31 RDW 18.9 H Plt Count 169 Lymph % (Auto) 7.0 L [place] % (Auto) 7.1 Eos % (Auto) 13.9 H Baso % (Auto) 1.4 Lymph # 0.4 L [place] # 0.4 Eos # 0.7 H Baso # 0.1 Seg Neutrophils % 70.6 H Seg Neutrophils # 3.6 PT 14.3 INR 1.12 APTT 35.0 Sodium 135 L Potassium 5.7 H Chloride 95.7 L Carbon Dioxide 27 Anion Gap 18 BUN 34 H Creatinine 7.2 H Estimated GFR 7 BUN/Creatinine Ratio 4.72 Glucose 118 H Calcium 8.9 Phosphorus Troponin T 06/29/16 13:38 WBC RBC Hgb Hct MCV MCH MCHC RDW Plt Count Lymph % (Auto) [place] % (Auto) Eos % (Auto) Baso % (Auto) Lymph # [place] # Eos # Baso # Seg Neutrophils % Seg Neutrophils # PT INR APTT Sodium Potassium Chloride Carbon Dioxide Anion Gap BUN Creatinine Estimated GFR BUN/Creatinine Ratio Glucose Calcium Phosphorus 2.3 L Troponin T 0.254 H* - EKG Data -: EKG Interpreted by Me EKG shows normal: sinus rhythm, axis, intervals Rate: normal - EKG Data Interpretation: other (mildly peaked T waves consistent with hyperkalemia) - Radiology Data interpreted by me: Chest x-ray is consistent with fluid overload (mild) Critical care attestation.: If time is entered above; I have spent that time in minutes in the direct care of this critically ill patient, excluding procedure time. ED Disposition Clinical Impression: Hyperkalemia, End-stage renal disease on hemodialysis CHF (congestive heart failure) Qualifiers: Congestive heart failure type: unspecified congestive heart failure type Congestive heart failure chronicity: acute on chronic Qualified Code(s): I50.9 - Heart failure, unspecified Aortic stenosis Qualifiers: Cardiac valve disease etiology: etiology unspecified Qualified Code(s): I35.0 - Nonrheumatic aortic (valve) stenosis Coronary artery disease Qualifiers: Coronary Disease-Associated Artery/Lesion type: [place] artery [place] vs. transplanted heart: [place] heart Associated angina: without angina Qualified Code(s): I25.10 - Atherosclerotic heart disease of [place] coronary artery without angina pectoris Disposition: OP ADMITTED IP TO THIS HOSP Is pt being admited?: Yes Does the pt Need Aspirin: Yes Condition: Stable Time of Disposition: 14:36
[2016-06-29] MEDS ORDERED: BABY ASPIRIN PO ONE (14:36)
[2016-06-29 14:52] LABS: Cholesterol 142 mg/dL (50-199); HDL Cholesterol 63 mg/dL (40-59); LDL Cholesterol,Direct 60 mg/dL (50-130); Triglycerides 96 mg/dL (2-149)
--- NOTE | 2016-06-29 14:52 | History and Physical Report ---
History of Present Illness Date of examination: 06/29/16 History of present illness: The patient states that she became nauseated and vomited in dialysis after 10 minutes of her run. She also complained of shortness of breath. For these reasons they sent her to the emergency department. I believe that she has been compliant with her dialysis. However she is a very poor historian and cannot specifically tell me when her last run was nor who her itinerant teacher assistant is. She is not complaining of shortness of breath at rest right now. She denies chest pain. Patient personally for her asthma was acting up and she requested a neb treatment when I asked her. Medications and Allergies Allergies Allergy/AdvReac Type Severity Reaction Status Date / Time No Known Allergies Allergy Unverified 04/20/13 02:00 Home Medications Medication Instructions Recorded Confirmed Last Taken Type Cholecalciferol (Vitamin D3) 2,000 units PO QDAY 04/20/13 04/15/16 Unknown History [D3-2000] Cinacalcet [Sensipar] 30 mg PO QDAY 04/20/13 04/15/16 Unknown History FLUoxetine HCL [PROzac] 20 mg PO DAILY 04/20/13 04/15/16 Unknown History Gabapentin 300 mg PO QHS 04/20/13 04/15/16 Unknown History Hydroxyzine HCl [hydrOXYzine] 25 mg PO Q4-6H PRN 04/20/13 04/15/16 Unknown History Loratadine [Claritin] 10 mg PO QDAY 04/20/13 04/15/16 Unknown History Sennosides [Senna Lax] 8.6 mg PO PRN PRN 04/20/13 04/15/16 Unknown History Sevelamer Carbonate [Renvela] 800 mg PO TID 04/20/13 04/15/16 Unknown History Albuterol Sulfate [Albuterol 0.63% 0.63 mg IH TID PRN #50 dose 04/23/13 Unknown Rx NEBS] ALBUTEROL Inhaler [ProAir HFA 1 - 2 puff IH Q4H PRN #1 inha 09/02/15 04/15/16 Unknown Rx Inhaler] Folic Acid/Vit B Comp W-C [Renal 1 cap PO QDAY 09/02/15 04/15/16 Unknown History Caps] Ondansetron [Zofran TAB] 4 mg PO Q8HR PRN 09/02/15 04/15/16 Unknown History Albuterol Sulfate [Ventolin HFA] 2 puff IH Q4H PRN #1 pump 04/18/16 Unknown Rx Famotidine [Pepcid] 10 mg PO QDAY #60 tablet 04/18/16 Unknown Rx glipiZIDE [Glucotrol] 5 mg PO QDAY #30 tablet 04/18/16 Unknown Rx Aspirin EC [Aspirin Enteric Coated 81 mg PO QDAY #30 tablet 05/19/16 Unknown Rx TAB] AtorvaSTATin [Lipitor] 40 mg PO QDAY #30 tablet 05/19/16 Unknown Rx ISOSORBIDE MONOnitrate [Imdur ER] 30 mg PO QDAY #30 tablet 05/19/16 Unknown Rx Metoprolol Xl [Metoprolol 50 mg PO QDAY #30 tablet 05/19/16 Unknown Rx SUCCINATE ER TAB] Exam - Constitutional Vitals: Temp Pulse Resp BP Pulse Ox 97.9 F 75 18 142/62 100 06/29/16 12:29 06/29/16 13:33 06/29/16 13:33 06/29/16 12:29 06/29/16 12:29 General appearance: Present: no acute distress - EENT Eyes: Present: PERRL, EOM intact ENT: hearing intact, clear oral mucosa - Neck Neck: Present: supple, normal ROM - Respiratory Respiratory effort: normal Respiratory: bilateral: CTA - Cardiovascular Rhythm: regular Heart Sounds: Present: S1 & S2 - Abdominal General gastrointestinal: Present: soft, non-tender, non-distended, normal bowel sounds - Musculoskeletal Musculoskeletal: strength equal bilaterally - Psychiatric Psychiatric: appropriate mood/affect, intact judgment & insight - Neurologic Neurologic: CNII-XII intact, moves all extremities Results - Labs CBC & Chem 7: 06/29/16 13:38 06/29/16 13:38 Labs: Laboratory Last Values WBC 5.0 K/mm3 (4.5-11.0) 06/29/16 13:38 RBC 3.12 M/mm3 (3.65-5.03) L 06/29/16 13:38 Hgb 9.5 gm/dl (10.1-14.3) L 06/29/16 13:38 Hct 30.7 % (30.3-42.9) 06/29/16 13:38 MCV 99 fl (79-97) H 06/29/16 13:38 MCH 31 pg (28-32) 06/29/16 13:38 MCHC 31 % (30-34) 06/29/16 13:38 RDW 18.9 % (13.2-15.2) H 06/29/16 13:38 Plt Count 169 K/mm3 (140-440) 06/29/16 13:38 Lymph % (Auto) 7.0 % (13.4-35.0) L 06/29/16 13:38 [place] % (Auto) 7.1 % (0.0-7.3) 06/29/16 13:38 Eos % (Auto) 13.9 % (0.0-4.3) H 06/29/16 13:38 Baso % (Auto) 1.4 % (0.0-1.8) 06/29/16 13:38 Lymph # 0.4 K/mm3 (1.2-5.4) L 06/29/16 13:38 [place] # 0.4 K/mm3 (0.0-0.8) 06/29/16 13:38 Eos # 0.7 K/mm3 (0.0-0.4) H 06/29/16 13:38 Baso # 0.1 K/mm3 (0.0-0.1) 06/29/16 13:38 Seg Neutrophils % 70.6 % (40.0-70.0) H 06/29/16 13:38 Seg Neutrophils # 3.6 K/mm3 (1.8-7.7) 06/29/16 13:38 PT 14.3 Sec. (12.2-14.9) 06/29/16 13:38 INR 1.12 (0.87-1.13) 06/29/16 13:38 APTT 35.0 Sec. (24.2-36.6) 06/29/16 13:38 Sodium 135 mmol/L (137-145) L 06/29/16 13:38 Potassium 5.7 mmol/L (3.6-5.0) H 06/29/16 13:38 Chloride 95.7 mmol/L (98-107) L 06/29/16 13:38 Carbon Dioxide 27 mmol/L (22-30) 06/29/16 13:38 Anion Gap 18 mmol/L 06/29/16 13:38 BUN 34 mg/dL (7-17) H 06/29/16 13:38 Creatinine 7.2 mg/dL (0.7-1.2) H 06/29/16 13:38 Estimated GFR 7 ml/min 06/29/16 13:38 BUN/Creatinine Ratio 4.72 % 06/29/16 13:38 Glucose 118 mg/dL (65-100) H 06/29/16 13:38 Calcium 8.9 mg/dL (8.4-10.2) 06/29/16 13:38 Phosphorus 2.3 mg/dL (2.5-4.5) L 06/29/16 13:38 Troponin T 0.254 ng/mL (0.00-0.029) H* 06/29/16 13:38 Assessment and Plan - Patient Problems (1) CHF (congestive heart failure) Status: Acute Qualifiers: Congestive heart failure type: unspecified congestive heart failure type Congestive heart failure chronicity: acute on chronic Qualified Code(s): I50.9 - Heart failure, unspecified Plan to address problem: Admit to Telemetry, Cardiology consult, 2D Echo, Follow Troponin (2) Hyperkalemia Status: Acute Plan to address problem: Patient needs dialysis, Continue to follow potassium level (3) End-stage renal disease on hemodialysis Status: Chronic Plan to address problem: Hemodialysis
--- NOTE | 2016-06-29 15:01 | XRay Report ---
Single view chest: Compared to 05/15/16. History: Difficulty breathing. Findings: Cardiomegaly. Trachea midline. Pulmonary venous congestion bilaterally being more prominent in the lower lobes. This normal CP angles. Impression: Probable early CHF.
--- NOTE | 2016-06-29 15:53 | Consultation ---
History of Present Illness Consult date: 06/29/16 Consult reason: shortness of breath History of present illness: This is a 76-year-old woman who was sent from dialysis with nausea vomiting and shortness of breath now admitted with acute pulmonary edema. She has had extensive cardiac workup at this hospital 2 months ago. Cardiac workup as follows: 1. Moderate aortic stenosis on transthoracic and transesophageal echocardiography. 2. Multivessel coronary artery disease on cardiac catheterization. She has multiple lesions in the proximal and mid right coronary artery, ultimately lesions in the circumflex and obtuse marginal vessels, and a proximal diagonal branch of the LAD. 3. Well-preserved left ventricle systolic function, ejection fraction 55%. She was place the patient on optimal medical therapy and discharge home with a plan for CT surgery assessment in the outpatient setting. Family member at bedside reports the patient has yet to see the CT surgeon due to insurance issues. Patient is currently, resting in bed comfortably. She denies any chest pain. Her presenting ECG shows a sinus rhythm. No acute ischemic changes. Medications and Allergies Allergies Allergy/AdvReac Type Severity Reaction Status Date / Time No Known Allergies Allergy Unverified 04/20/13 02:00 Home Medications Medication Instructions Recorded Confirmed Last Taken Type Cholecalciferol (Vitamin D3) 2,000 units PO QDAY 04/20/13 04/15/16 Unknown History [D3-2000] Cinacalcet [Sensipar] 30 mg PO QDAY 04/20/13 04/15/16 Unknown History FLUoxetine HCL [PROzac] 20 mg PO DAILY 04/20/13 04/15/16 Unknown History Gabapentin 300 mg PO QHS 04/20/13 04/15/16 Unknown History Hydroxyzine HCl [hydrOXYzine] 25 mg PO Q4-6H PRN 04/20/13 04/15/16 Unknown History Loratadine [Claritin] 10 mg PO QDAY 04/20/13 04/15/16 Unknown History Sennosides [Senna Lax] 8.6 mg PO PRN PRN 04/20/13 04/15/16 Unknown History Sevelamer Carbonate [Renvela] 800 mg PO TID 04/20/13 04/15/16 Unknown History Albuterol Sulfate [Albuterol 0.63% 0.63 mg IH TID PRN #50 dose 04/23/13 Unknown Rx NEBS] ALBUTEROL Inhaler [ProAir HFA 1 - 2 puff IH Q4H PRN #1 inha 09/02/15 04/15/16 Unknown Rx Inhaler] Folic Acid/Vit B Comp W-C [Renal 1 cap PO QDAY 09/02/15 04/15/16 Unknown History Caps] Ondansetron [Zofran TAB] 4 mg PO Q8HR PRN 09/02/15 04/15/16 Unknown History Albuterol Sulfate [Ventolin HFA] 2 puff IH Q4H PRN #1 pump 04/18/16 Unknown Rx Famotidine [Pepcid] 10 mg PO QDAY #60 tablet 04/18/16 Unknown Rx glipiZIDE [Glucotrol] 5 mg PO QDAY #30 tablet 04/18/16 Unknown Rx Aspirin EC [Aspirin Enteric Coated 81 mg PO QDAY #30 tablet 05/19/16 Unknown Rx TAB] AtorvaSTATin [Lipitor] 40 mg PO QDAY #30 tablet 05/19/16 Unknown Rx ISOSORBIDE MONOnitrate [Imdur ER] 30 mg PO QDAY #30 tablet 05/19/16 Unknown Rx Metoprolol Xl [Metoprolol 50 mg PO QDAY #30 tablet 05/19/16 Unknown Rx SUCCINATE ER TAB] Physical Examination Vital Signs Temp Pulse Resp BP Pulse Ox 97.9 F 74 22 142/62 100 06/29/16 12:29 06/29/16 12:29 06/29/16 12:29 06/29/16 12:29 06/29/16 12:29 General appearance: no acute distress HEENT: Positive: PERRL Neck: Positive: trachea midline Cardiac: Positive: Reg Rate and Rhythm Results 06/29/16 13:38 06/29/16 13:38 Coagulation 06/29/16 Range/Units 13:38 PT 14.3 (12.2-14.9) Sec. INR 1.12 (0.87-1.13) APTT 35.0 (24.2-36.6) Sec. Lipids 06/29/16 Range/Units 13:38 Triglycerides 96 (2-149) mg/dL Cholesterol 142 (50-199) mg/dL HDL Cholesterol 63 H (40-59) mg/dL Cholesterol/HDL Ratio 2.25 % CBC 06/29/16 Range/Units 13:38 WBC 5.0 (4.5-11.0) K/mm3 RBC 3.12 L (3.65-5.03) M/mm3 Hgb 9.5 L (10.1-14.3) gm/dl Hct 30.7 (30.3-42.9) % Plt Count 169 (140-440) K/mm3 Lymph # 0.4 L (1.2-5.4) K/mm3 [place] # 0.4 (0.0-0.8) K/mm3 Eos # 0.7 H (0.0-0.4) K/mm3 Baso # 0.1 (0.0-0.1) K/mm3 Comprehensive Metabolic Panel 06/29/16 Range/Units 13:38 Sodium 135 L (137-145) mmol/L Potassium 5.7 H (3.6-5.0) mmol/L Chloride 95.7 L (98-107) mmol/L Carbon Dioxide 27 (22-30) mmol/L BUN 34 H (7-17) mg/dL Creatinine 7.2 H (0.7-1.2) mg/dL Glucose 118 H (65-100) mg/dL Calcium 8.9 (8.4-10.2) mg/dL EKG interpretations - Telemetry EKG Rhythm: Sinus Rhythm Assessment and Plan Pulmonary edema ESRD on HD Hyperkalemia Hypertension Aortic stenosis Multivessel CAD She has multiple lesions in the proximal and mid right coronary artery, ultimately lesions in the circumflex and obtuse marginal vessels, and a proximal diagonal branch of the LAD. Well-preserved left ventricle systolic function, EF 55% on echocardiogram 04/2016
[2016-06-29] MEDS ORDERED: NACL 0.9% 100 ML IV PRN (16:32)
--- NOTE | 2016-06-29 16:41 | Consultation ---
History of Present Illness - Reason for Consult Consult date: 06/29/16 end stage renal disease - History of Present Illness Mrs. Moran is a 76yo with ESRD on IHD via RAJAN AVG qTTS and aortic stenosis who presented to the ED w/ SOB. She presented for outpatient dialysis today. During her treatment, patient developed nausea/vomiting followed by worsening SOB. Treatment was discontinued and patient was sent to the ED for evaluation. Of note, patient has known and has been referred to [facility]. However, as patient is insured by [facility], coverage/approval for visit was declined. plans to obtain appt with [facility]. At baseline, she complains of dyspnea with exertion. She denies chest pain, orthopnea Past History Past Medical History: other (End stage renal disease, Aortic stenosis, Type II DM, Hyperlipidemia, CAD) Social history: no significant social history, . denies: smoking, alcohol abuse Family history: no significant family history Medications and Allergies Allergies Allergy/AdvReac Type Severity Reaction Status Date / Time No Known Allergies Allergy Unverified 04/20/13 02:00 Home Medications Medication Instructions Recorded Confirmed Last Taken Type Cholecalciferol (Vitamin D3) 2,000 units PO QDAY 04/20/13 04/15/16 Unknown History [D3-2000] Cinacalcet [Sensipar] 30 mg PO QDAY 04/20/13 04/15/16 Unknown History FLUoxetine HCL [PROzac] 20 mg PO DAILY 04/20/13 04/15/16 Unknown History Gabapentin 300 mg PO QHS 04/20/13 04/15/16 Unknown History Hydroxyzine HCl [hydrOXYzine] 25 mg PO Q4-6H PRN 04/20/13 04/15/16 Unknown History Loratadine [Claritin] 10 mg PO QDAY 04/20/13 04/15/16 Unknown History Sennosides [Senna Lax] 8.6 mg PO PRN PRN 04/20/13 04/15/16 Unknown History Sevelamer Carbonate [Renvela] 800 mg PO TID 04/20/13 04/15/16 Unknown History Albuterol Sulfate [Albuterol 0.63% 0.63 mg IH TID PRN #50 dose 04/23/13 Unknown Rx NEBS] ALBUTEROL Inhaler [ProAir HFA 1 - 2 puff IH Q4H PRN #1 inha 09/02/15 04/15/16 Unknown Rx Inhaler] Folic Acid/Vit B Comp W-C [Renal 1 cap PO QDAY 09/02/15 04/15/16 Unknown History Caps] Ondansetron [Zofran TAB] 4 mg PO Q8HR PRN 09/02/15 04/15/16 Unknown History Albuterol Sulfate [Ventolin HFA] 2 puff IH Q4H PRN #1 pump 04/18/16 Unknown Rx Famotidine [Pepcid] 10 mg PO QDAY #60 tablet 04/18/16 Unknown Rx glipiZIDE [Glucotrol] 5 mg PO QDAY #30 tablet 04/18/16 Unknown Rx Aspirin EC [Aspirin Enteric Coated 81 mg PO QDAY #30 tablet 05/19/16 Unknown Rx TAB] AtorvaSTATin [Lipitor] 40 mg PO QDAY #30 tablet 05/19/16 Unknown Rx ISOSORBIDE MONOnitrate [Imdur ER] 30 mg PO QDAY #30 tablet 05/19/16 Unknown Rx Metoprolol Xl [Metoprolol 50 mg PO QDAY #30 tablet 05/19/16 Unknown Rx SUCCINATE ER TAB] Active Meds: Active Medications Sodium Chloride (Nacl 0.9%) 100 mls @ 999 mls/hr IV KIRSTEN PRN PRN Reason: Hypotension Review of Systems Constitutional: no fever, no chills, no sweats Cardiovascular: shortness of breath, dyspnea on exertion, no chest pain, no edema Respiratory: dyspnea on exertion, no cough, no shortness of breath Gastrointestinal: nausea, vomiting, no abdominal pain, no diarrhea, no constipation Integumentary: no rash, no pruritis Exam - Vital Signs Vital signs: Vital Signs Temp Pulse Resp BP Pulse Ox 97.9 F 74 22 142/62 100 06/29/16 12:29 06/29/16 12:29 06/29/16 12:29 06/29/16 12:29 06/29/16 12:29 - General Appearance General appearance: well-developed, well-nourished EENT: ATNC Neck: Present: neck supple Respiratory: Decreased Breath Sounds Heart: systolic murmur Gastrointestinal: Present: normal. Absent: tenderness, distended Integumentary: no rash, warm and dry Neurologic: no focal deficit, alert and oriented x3 Psychiatric: mood/affect appropriate, cooperative Results - Lab Results 06/29/16 13:38 06/29/16 13:38 Most recent lab results Calcium 8.9 mg/dL (8.4-10.2) 06/29/16 13:38 Phosphorus 2.3 mg/dL (2.5-4.5) L 06/29/16 13:38 Assessment and Plan Impression * End stage renal disease on IHD qTTS * Dyspnea * Aortic stenosis, moderate * Coronary artery disease * Type II DM * Hypertension * Anemia secondary to ESRD * Secondary hyperparathyroidism Plan: * Hemodialysis today; UF as tolerated * Cardiology consultation requested * Dose medications for renal function * Renal diet * Binders with meals - PhosLo 2 TID with meals * Epogen for goal Hb 10-12
[2016-06-30] MEDS ORDERED: PROVENTIL IH ONE (09:20)
--- NOTE | 2016-06-30 09:57 | Progress Note ---
Assessment and Plan Pulmonary edema ESRD on HD Hyperkalemia Hypertension Aortic stenosis Multivessel CAD She has multiple lesions in the proximal and mid right coronary artery, ultimately lesions in the circumflex and obtuse marginal vessels, and a proximal diagonal branch of the LAD. On medical therapy Well-preserved left ventricle systolic function, EF 55% on echocardiogram 04/2016 Subjective Date of service: 06/30/16 Interval history: Patient reports her breathing is better. She denies chest pain. Objective Vital Signs Temp Pulse Pulse Pulse Resp Resp BP 06/30/16 09:48 06/30/16 09:40 82 18 06/30/16 09:30 80 18 06/30/16 08:00 98.2 F 80 18 06/30/16 04:30 98.1 F 80 20 06/29/16 23:45 98.1 F 76 20 06/29/16 22:00 98.1 F 78 20 06/29/16 21:00 97.7 F 78 18 165/70 06/29/16 20:40 75 158/66 06/29/16 20:30 76 142/64 06/29/16 20:15 77 164/62 06/29/16 20:00 73 139/63 06/29/16 19:45 75 141/64 06/29/16 19:30 72 126/58 06/29/16 19:15 72 132/57 06/29/16 19:00 69 117/48 06/29/16 18:45 69 121/58 06/29/16 18:30 72 126/56 06/29/16 18:15 70 119/52 06/29/16 18:00 70 125/57 06/29/16 17:50 72 126/47 06/29/16 17:40 98.4 F 71 18 119/53 06/29/16 17:27 98.4 F 70 16 BP BP Pulse Ox 06/30/16 09:48 100 06/30/16 09:40 06/30/16 09:30 06/30/16 08:00 181/92 100 06/30/16 04:30 158/65 06/29/16 23:45 190/74 97 06/29/16 22:00 187/95 97 06/29/16 21:00 06/29/16 20:40 06/29/16 20:30 06/29/16 20:15 06/29/16 20:00 06/29/16 19:45 06/29/16 19:30 06/29/16 19:15 06/29/16 19:00 06/29/16 18:45 06/29/16 18:30 06/29/16 18:15 06/29/16 18:00 06/29/16 17:50 06/29/16 17:40 06/29/16 17:27 119/50 100 - Physical Examination General: No Apparent Distress HEENT: Positive: PERRL Neck: Positive: neck supple Cardiac: Positive: Reg Rate and Rhythm Lungs: Positive: Decreased Breath Sounds
[2016-06-30] MEDS ORDERED: IMDUR PO SCH (10:00)
[2016-06-30] MEDS ORDERED: TOPROL XL PO SCH (10:00)
[2016-06-30] MEDS ORDERED: NACL 0.9 (PRIMING MACHINE ONLY DIALYSIS) MC ONE (10:43)
[2016-06-30] MEDS: PROVENTIL IH SCH ×3 (10:48→19:55)
[2016-06-30] MEDS ORDERED: HYDROXYZINE HCL 25 MG PO PRN (12:36)
[2016-06-30] MEDS ORDERED: SENOKOT PO PRN (12:36)
[2016-06-30] MEDS ORDERED: NON-FORMULARY (Albuterol Sulfate [Albuterol 0.63% Nebs] 0.63 MG) IH PRN (12:36)
[2016-06-30] MEDS ORDERED: PROAIR IH PRN (12:36)
[2016-06-30] MEDS ORDERED: PROVENTIL IH PRN (12:54)
[2016-06-30] MEDS ORDERED: RENVELA PO SCH ×2 (14:00→17:00)
[2016-06-30] MEDS ORDERED: ATARAX PO PRN (14:38)
--- NOTE | 2016-06-30 16:29 | Progress Note ---
Assessment and Plan Impression * End stage renal disease on IHD qTTS * Dyspnea * Aortic stenosis, moderate * Coronary artery disease * Type II DM * Hypertension * Anemia secondary to ESRD * Secondary hyperparathyroidism Plan: * Hemodialysis [facility]; UF as tolerated * Cardiology consultation noted * Dose medications for renal function * Renal diet * Binders with meals - PhosLo 2 TID with meals * Epogen for goal Hb 10-12 Subjective Date of service: 06/30/16 Principal diagnosis: esrd Interval history: resting in bed today, feels some better Objective - Exam Narrative Exam: General appearance: well-developed, well-nourished EENT: ATNC Neck: Present: neck supple Respiratory: Decreased Breath Sounds Heart: systolic murmur Gastrointestinal: Present: normal. Absent: tenderness, distended Integumentary: no rash, warm and dry Neurologic: no focal deficit, alert and oriented x3 Psychiatric: mood/affect appropriate, cooperative - Vital Signs Vital signs: Vital Signs - 12hr 06/30/16 06/30/16 06/30/16 04:30 08:00 09:30 Temperature 98.1 F 98.2 F Pulse Rate Pulse Rate [ 80 Bilateral Upper Lobe] Pulse Rate [ 80 80 Right] Respiratory 20 18 Rate Respiratory 18 Rate [Bilateral Upper Lobe] Blood Pressure Blood Pressure 158/65 181/92 [Right Arm] O2 Sat by Pulse 100 Oximetry 06/30/16 06/30/16 06/30/16 09:40 09:48 12:00 Temperature 98 F Pulse Rate Pulse Rate [ 82 Bilateral Upper Lobe] Pulse Rate [ 81 Right] Respiratory 18 Rate Respiratory 18 Rate [Bilateral Upper Lobe] Blood Pressure Blood Pressure 180/85 [Right Arm] O2 Sat by Pulse 100 100 Oximetry 06/30/16 06/30/16 06/30/16 13:08 14:20 14:23 Temperature Pulse Rate 81 Pulse Rate [ 83 Bilateral Upper Lobe] Pulse Rate [ 79 Right] Respiratory Rate Respiratory 18 Rate [Bilateral Upper Lobe] Blood Pressure 180/85 Blood Pressure 193/75 [Right Arm] O2 Sat by Pulse Oximetry 06/30/16 06/30/16 14:28 14:32 Temperature Pulse Rate 79 Pulse Rate [ 84 Bilateral Upper Lobe] Pulse Rate [ Right] Respiratory Rate Respiratory 18 Rate [Bilateral Upper Lobe] Blood Pressure 193/75 Blood Pressure [Right Arm] O2 Sat by Pulse Oximetry - Lab 06/29/16 13:38 06/29/16 13:38 Most recent lab results Calcium 8.9 mg/dL (8.4-10.2) 06/29/16 13:38 Phosphorus 2.3 mg/dL (2.5-4.5) L 06/29/16 13:38
--- NOTE | 2016-06-30 16:57 | Discharge Summary ---
Providers - Providers Date of Admission: 06/29/16 17:20 Attending physician: ZACHARY GREGORIO Primary care physician: BELLSTAND ATTENDANT Hospitalization Condition: Stable Hospital course: 76 YO Female admitted for CHF Decompensation, and Fluid Overload. Cardiology team consulted. Pt treated IAW CHF protocol, and remote telemetry monitoring. Pt convalesced well during hospital course with improvement in symptoms. Pt seen and evaluated by cardiology team. Pt found to have prolonged QT, and multiple vessel cardiac disease. Pt seen and evaluated prior to discharge. Pt medically stable for transfer. Pt subsequently transferred to [facility] for CT surgery intervention. 35 minutes dedicated to pt discharge and education. Disposition: DC/TX ANOTHER TYPE HEALTHCARE - Discharge Diagnoses (1) CHF (congestive heart failure) Status: Acute Qualifiers: Congestive heart failure type: unspecified congestive heart failure type Congestive heart failure chronicity: acute on chronic Qualified Code(s): I50.9 - Heart failure, unspecified (2) Coronary artery disease Status: Acute Qualifiers: Coronary Disease-Associated Artery/Lesion type: [place] artery [place] vs. transplanted heart: [place] heart Associated angina: without angina Qualified Code(s): I25.10 - Atherosclerotic heart disease of [place] coronary artery without angina pectoris (3) DVT prophylaxis Status: Acute (4) Hypertension Status: Chronic Qualifiers: Hypertension type: essential hypertension Qualified Code(s): I10 - Essential (primary) hypertension Core Measure Documentation - Palliative Care Palliative Care/ Comfort Measures: Not Applicable - Core Measures Any of the following diagnoses?: heart failure - Heart Failure Discharge Requirements LUIS/ARB for LVSD if EF <40%: No Reason for no LUIS/ARB: Renal impairment Beta garrett at discharge: Yes Exam - Constitutional Vitals: Temp Pulse Resp BP Pulse Ox 98 F 79 18 193/75 100 06/30/16 12:00 06/30/16 14:32 06/30/16 14:28 06/30/16 14:32 06/30/16 12:00 General appearance: Present: no acute distress, well-nourished - EENT Eyes: Present: PERRL ENT: hearing intact, clear oral mucosa - Neck Neck: Present: supple, normal ROM - Respiratory Respiratory effort: normal Respiratory: bilateral: CTA - Cardiovascular Heart Sounds: Present: S1 & S2. Absent: rub, click - Extremities Extremities: pulses symmetrical, No edema Extremity abnormal: edema Peripheral Pulses: within normal limits - Abdominal General gastrointestinal: Present: soft, non-tender, non-distended, normal bowel sounds Female genitourinary: Present: normal - Integumentary Integumentary: Present: clear, warm, dry - Musculoskeletal Musculoskeletal: gait normal, strength equal bilaterally - Psychiatric Psychiatric: appropriate mood/affect, intact judgment & insight - Neurologic Neurologic: CNII-XII intact, moves all extremities Plan Activity: advance as tolerated Diet: diabetic, renal Special Instructions: record daily weights, record daily BP diary, record blood sugar diary Follow up with: PRIMARY CARE, [Primary Care Provider] - 3-5 Days
[2016-06-30] MEDS ORDERED: APRESOLINE IV PRN (17:09)
[2016-06-30 20:37] VITALS: BP 187/83
[2016-06-30] MEDS ORDERED: NEURONTIN PO SCH (22:00)
[2016-07-01] MEDS ORDERED: SENSIPAR PO SCH (10:00)
[2016-07-01] MEDS ORDERED: VITAMIN D3 PO SCH (10:00)
[2016-07-01] MEDS ORDERED: Renal Caps PO SCH (10:00)
[2016-07-01] MEDS ORDERED: PEPCID PO SCH (10:00)
[2016-07-01] MEDS ORDERED: HALFPRIN EC PO SCH (10:00)
[2016-07-01] MEDS ORDERED: PROzac PO SCH (10:00)
== END 2016-06-30 21:25 | disposition short-term general hospital (02) | DRG 291 ==
LOC: ED 11:50 → 3A 17:20
PROVIDERS: ADMIT Internal Medicine; ATTEND Internal Medicine
PROC: 5A1D00Z (ICD-10-PCS; principal; 2016-06-29)
DX: I13.2 Hypertensive heart and chronic kidney disease with heart failure and with stage 5 chronic kidney disease, or end stage renal disease (principal); N18.6 End stage renal disease; E87.5 Hyperkalemia; I25.10 Atherosclerotic heart disease of native coronary artery without angina pectoris; I50.9 Heart failure, unspecified; E11.9 Type 2 diabetes mellitus without complications; E11.22 Type 2 diabetes mellitus with diabetic chronic kidney disease; J45.909 Unspecified asthma, uncomplicated; I35.0 Nonrheumatic aortic (valve) stenosis; D63.1 Anemia in chronic kidney disease; Z99.2 Dependence on renal dialysis; Z90.710 Acquired absence of both cervix and uterus; Z87.891 Personal history of nicotine dependence
CPT/HCPCS: 36415; 71010; 80048; 80061; 82962; 83880; 84100; 84484; 85025; 85610; 85730; 93005; 93010; 94640; 94760; J0360; J7030

== ENCOUNTER 2016-12-09 13:54 | Emergency (ER) | payer MEDICARE ==
[2016-12-09 16:19] LABS: Hematocrit 28.9 % (30.3-42.9); Hemoglobin 9.1 gm/dl (10.1-14.3); Mean Corpuscular HGB Conc 32 % (30-34); Mean Corpuscular Hemoglobin 32 pg (28-32); Mean Corpuscular Volume 101 fl (79-97); Platelet Count 164 K/mm3 (140-440); Red Blood Count 2.87 M/mm3 (3.65-5.03); Red Cell Distribution Width 18.8 % (13.2-15.2); White Blood Count 4.4 K/mm3 (4.5-11.0)
[2016-12-09 16:35] LABS: BUN/Creatinine Ratio 4.04; Calcium 9.1 mg/dL (8.4-10.2); Chloride 95.4 mmol/L (98-107); Potassium 3.5 mmol/L (3.6-5.0)
--- NOTE | 2016-12-09 16:52 | Emergency Department Report ---
ED General Adult HPI - General Chief complaint: Adult Asthma Stated complaint: DOUGLAS Time Seen by Provider: 12/09/16 15:46 Source: patient, EMS Mode of arrival: Stretcher Limitations: No Limitations - History of Present Illness Initial comments: The patient has a history of chronic asthma. She "had an asthma attack" at dialysis. EMS was summoned. She did not complete her dialysis treatment. Paramedics gave albuterol treatments and the patient arrived in improved condition. She is here with a family member that states she is ready to go home. The patient has well believes that she is ready for discharge. Her wheezing has resolved. She is on chronic home O2. She has not missed any dialysis recently. She does not complain of chest pain leg pain swelling or have any other active complaints. -: Gradual Severity scale (0 -10): 0 Associated Symptoms: denies other symptoms - Related Data Home Medications Medication Instructions Recorded Confirmed Last Taken Cholecalciferol (Vitamin D3) 2,000 units PO QDAY 04/20/13 07/20/16 Unknown [D3-1999] Cinacalcet [Sensipar] 30 mg PO QDAY 04/20/13 07/20/16 Unknown FLUoxetine HCL [PROzac] 20 mg PO DAILY 04/20/13 07/20/16 Unknown Gabapentin 300 mg PO QHS 04/20/13 07/20/16 Unknown Hydroxyzine HCl [hydrOXYzine] 25 mg PO Q4-6H PRN 04/20/13 07/20/16 Unknown Loratadine [Claritin] 10 mg PO QDAY 04/20/13 07/20/16 Unknown Sennosides [Senna Lax] 8.6 mg PO PRN PRN 04/20/13 07/20/16 Unknown Sevelamer Carbonate [Renvela] 800 mg PO TID 04/20/13 07/20/16 Unknown Folic Acid/Vit B Comp W-C [Renal 1 cap PO QDAY 09/02/15 07/20/16 Unknown Caps] Ondansetron [Zofran TAB] 4 mg PO Q8HR PRN 09/02/15 07/20/16 Unknown Previous Rx's Medication Instructions Recorded Last Taken Type Albuterol Sulfate [Albuterol 0.63% 0.63 mg IH TID PRN #50 dose 04/23/13 Unknown Rx NEBS] ALBUTEROL Inhaler [ProAir HFA 1 - 2 puff IH Q4H PRN #1 inha 09/02/15 Unknown Rx Inhaler] Famotidine [Pepcid] 10 mg PO QDAY #60 tablet 04/18/16 Unknown Rx glipiZIDE [Glucotrol] 5 mg PO QDAY #30 tablet 04/18/16 Unknown Rx Aspirin EC [Aspirin Enteric Coated 81 mg PO QDAY #30 tablet 05/19/16 Unknown Rx TAB] AtorvaSTATin [Lipitor] 40 mg PO QDAY #30 tablet 05/19/16 Unknown Rx ISOSORBIDE MONOnitrate [Imdur ER] 30 mg PO QDAY #30 tablet 05/19/16 Unknown Rx Metoprolol Xl [Metoprolol 50 mg PO QDAY #30 tablet 05/19/16 Unknown Rx SUCCINATE ER TAB] Allergies Allergy/AdvReac Type Severity Reaction Status Date / Time No Known Allergies Allergy Unverified 04/20/13 02:00 ED Review of Systems ROS: Stated complaint: DOUGLAS Other details as noted in HPI Constitutional: denies: chills, fever Eyes: denies: eye pain, eye discharge, vision change ENT: denies: ear pain, throat pain Respiratory: wheezing. denies: cough, shortness of breath Cardiovascular: denies: chest pain, palpitations Endocrine: no symptoms reported Gastrointestinal: denies: abdominal pain, nausea, diarrhea Genitourinary: denies: urgency, dysuria, discharge Musculoskeletal: denies: back pain, joint swelling, arthralgia Skin: denies: rash, lesions Neurological: denies: headache, weakness, paresthesias Psychiatric: denies: anxiety, depression Hematological/Lymphatic: denies: easy bleeding, easy bruising ED Past Medical Hx - Past Medical History Previous Medical History?: Yes Hx Hypertension: Yes Hx Heart Attack/AMI: No Hx Congestive Heart Failure: Yes Hx Diabetes: Yes Hx Deep Vein Thrombosis: No Hx Pulmonary Embolism: No Hx Liver Disease: No Hx Renal Disease: Yes Hx Asthma: Yes Hx COPD: No Hx Tuberculosis: No Hx HIV: No Additional medical history: 05/14/2016 Echocardiogram EF 55- 60% with moderate concentric LVH and moderate aortic stenosis - Surgical History Past Surgical History?: Yes Hx Coronary Stent: Yes (05/2016 to the circumflex artery) Hx Pacemaker: No Hx Internal Defibrillator: No Additional Surgical History: hysterectomy. fistula to left upper arm. Cardiac cath May 2016 requiring PCI - Social History Smoking Status: Never Smoker Substance Use Type: Alcohol - Medications Home Medications: Home Medications Medication Instructions Recorded Confirmed Last Taken Type Cholecalciferol (Vitamin D3) 2,000 units PO QDAY 04/20/13 07/20/16 Unknown History [D3-2000] Cinacalcet [Sensipar] 30 mg PO QDAY 04/20/13 07/20/16 Unknown History FLUoxetine HCL [PROzac] 20 mg PO DAILY 04/20/13 07/20/16 Unknown History Gabapentin 300 mg PO QHS 04/20/13 07/20/16 Unknown History Hydroxyzine HCl [hydrOXYzine] 25 mg PO Q4-6H PRN 04/20/13 07/20/16 Unknown History Loratadine [Claritin] 10 mg PO QDAY 04/20/13 07/20/16 Unknown History Sennosides [Senna Lax] 8.6 mg PO PRN PRN 04/20/13 07/20/16 Unknown History Sevelamer Carbonate [Renvela] 800 mg PO TID 04/20/13 07/20/16 Unknown History Albuterol Sulfate [Albuterol 0.63% 0.63 mg IH TID PRN #50 dose 04/23/13 Unknown Rx NEBS] ALBUTEROL Inhaler [ProAir HFA 1 - 2 puff IH Q4H PRN #1 inha 09/02/15 07/20/16 Unknown Rx Inhaler] Folic Acid/Vit B Comp W-C [Renal 1 cap PO QDAY 09/02/15 07/20/16 Unknown History Caps] Ondansetron [Zofran TAB] 4 mg PO Q8HR PRN 09/02/15 07/20/16 Unknown History Famotidine [Pepcid] 10 mg PO QDAY #60 tablet 04/18/16 07/20/16 Unknown Rx glipiZIDE [Glucotrol] 5 mg PO QDAY #30 tablet 04/18/16 07/20/16 Unknown Rx Aspirin EC [Aspirin Enteric Coated 81 mg PO QDAY #30 tablet 05/19/16 07/20/16 Unknown Rx TAB] AtorvaSTATin [Lipitor] 40 mg PO QDAY #30 tablet 05/19/16 07/20/16 Unknown Rx ISOSORBIDE MONOnitrate [Imdur ER] 30 mg PO QDAY #30 tablet 05/19/16 07/20/16 Unknown Rx Metoprolol Xl [Metoprolol 50 mg PO QDAY #30 tablet 05/19/16 07/20/16 Unknown Rx SUCCINATE ER TAB] ED Physical Exam - General Limitations: No Limitations General appearance: alert, in no apparent distress - Head Head exam: Present: atraumatic, normocephalic - Eye Eye exam: Present: normal appearance. Absent: scleral icterus - ENT ENT exam: Present: normal exam, mucous membranes moist - Neck Neck exam: Present: normal inspection - Respiratory Respiratory exam: Present: normal lung sounds bilaterally. Absent: respiratory distress - Cardiovascular Cardiovascular Exam: Present: regular rate, normal rhythm. Absent: systolic murmur, diastolic murmur, rubs, gallop - GI/Abdominal GI/Abdominal exam: Present: soft, normal bowel sounds. Absent: distended, tenderness, guarding, rebound, rigid - Extremities Exam Extremities exam: Present: normal inspection - Back Exam Back exam: Present: normal inspection - Neurological Exam Neurological exam: Present: alert, oriented X3, CN II-XII intact. Absent: motor sensory deficit - Psychiatric Psychiatric exam: Present: normal affect, normal mood - Skin Skin exam: Present: warm, dry, intact, normal color. Absent: rash ED Course Vital Signs 12/09/16 12/09/16 14:48 14:49 Temperature 98.5 F Pulse Rate 74 Respiratory 15 15 Rate Blood Pressure 165/63 [Left] O2 Sat by Pulse 98 98 Oximetry - Reevaluation(s) Reevaluation #1: Mildly elevated and nonsignificant troponin. We'll check EKG prior to discharge. 12/09/16 16:51 ED Medical Decision Making - Lab Data Result diagrams: 12/09/16 15:50 12/09/16 15:50 Laboratory Results - last 24 hr 12/09/16 12/09/16 15:50 15:50 WBC 4.4 L RBC 2.87 L Hgb 9.1 L Hct 28.9 L MCV 101 H MCH 32 MCHC 32 RDW 18.8 H Plt Count 164 Eos % (Auto) Multimedia Artist Sodium 141 Potassium 3.5 L Chloride 95.4 L Carbon Dioxide 29 Anion Gap 20 BUN 19 H Creatinine 4.7 H Estimated GFR 11 BUN/Creatinine Ratio 4.04 Glucose 112 H Calcium 9.1 Troponin T 0.065 H - EKG Data -: EKG Interpreted by Me EKG shows normal: sinus rhythm, axis, intervals, QRS complexes, ST-T waves Rate: normal - EKG Data Interpretation: no acute changes Critical care attestation.: If time is entered above; I have spent that time in minutes in the direct care of this critically ill patient, excluding procedure time. ED Disposition Clinical Impression: Asthma exacerbation, End-stage renal disease on hemodialysis Disposition: TO HOME OR SELFCARE Is pt being admited?: No Does the pt Need Aspirin: No Condition: Stable Instructions: Asthma (ED) Additional Instructions: Call the dialysis center to arrange for the next available dialysis. Return any acute change or recurrent symptoms. Referrals: dialysis clinic, manufacturing production technician [Other] - [facility] [Primary Care Provider] - 3-5 Days Time of Disposition: 16:55
[2016-12-09 17:04] LABS: Basophils % (Manual) 0 % (0.0-1.8); Blastocytes % (Manual) 0 %
[2016-12-09 17:05] LABS: Anisocytosis 1+
[2016-12-09 17:06] LABS: Diff Status Complete; Macrocytosis 1+; Platelet Estimate Consistent w Auto; Polychromasia 1+
[2016-12-09 17:27] VITALS: BP 146/56
--- NOTE | 2016-12-10 09:30 | XRay Report ---
AP CHEST: HISTORY: Difficulty in breathing Mild cardiomegaly and pulmonary venous congestion are identified which have decreased since 07/22/16. Small pleural effusions have resolved. The lungs are generally clear. The bony structures are intact. IMPRESSION: Mild cardiomegaly and pulmonary venous congestion but no CHF.
== END 2016-12-09 17:28 | disposition home or self-care (01) ==
LOC: ED 13:54
DX: J45.901 Unspecified asthma with (acute) exacerbation (principal); I12.0 Hypertensive chronic kidney disease with stage 5 chronic kidney disease or end stage renal disease; N18.6 End stage renal disease; E11.22 Type 2 diabetes mellitus with diabetic chronic kidney disease; I50.9 Heart failure, unspecified; Z99.2 Dependence on renal dialysis; Z79.82 Long term (current) use of aspirin; Z79.01 Long term (current) use of anticoagulants
CPT/HCPCS: 36415; 71010; 80048; 80061; 84484; 85007; 85025; 93005; 93010

== ENCOUNTER 2017-05-24 06:58 | Inpatient (IN) | payer MEDICARE ==
--- NOTE | 2017-05-24 07:23 | Emergency Department Report ---
HPI - General Chief Complaint: Dyspnea/Respdistress Time Seen by Provider: 05/24/17 07:16 - HPI HPI: 77-year-old female presents to the emergency department via EMS from home after she began feeling short of breath and "sick" this morning around 5 AM. EMS found the patient to be 88-89% on room air. There is some history of chronic oxygen use however and was she was placed on nasal cannula at 3 L her oxygen went up to 95. She denies any chest pain, lower extremity swelling, fever, nausea or vomiting. She has a history of asthma, CHF, diabetes , hypertension, renal sufficiency. She has an echocardiogram from April 2016 that showed 55-60% EF. She has a history of a circumflex artery stent from May 2016. Her physicians are through [facility]. No recent travel or sick contacts at home. ED Past Medical Hx - Past Medical History Previous Medical History?: Yes Hx Hypertension: Yes Hx Heart Attack/AMI: No Hx Congestive Heart Failure: Yes Hx Diabetes: Yes Hx Deep Vein Thrombosis: No Hx Pulmonary Embolism: No Hx Liver Disease: No Hx Renal Disease: Yes Hx Asthma: Yes Hx COPD: No Hx Tuberculosis: No Hx HIV: No Additional medical history: 05/14/2016 Echocardiogram EF 55- 60% with moderate concentric LVH and moderate aortic stenosis - Surgical History Past Surgical History?: Yes Hx Coronary Stent: Yes (05/2016 to the circumflex artery) Hx Pacemaker: No Hx Internal Defibrillator: No Additional Surgical History: hysterectomy. fistula to left upper arm. Cardiac cath May 2016 requiring PCI - Social History Smoking Status: Former Smoker - Medications Home Medications: Home Medications Medication Instructions Recorded Confirmed Last Taken Type Cinacalcet [Sensipar] 30 mg PO QDAY 04/20/13 05/24/17 Unknown History FLUoxetine HCL [PROzac] 20 mg PO DAILY 04/20/13 05/24/17 Unknown History Albuterol Sulfate [Albuterol 0.63% 0.63 mg IH TID PRN #50 dose 04/23/13 Unknown Rx NEBS] ALBUTEROL Inhaler [ProAir HFA 1 - 2 puff IH Q4H PRN #1 inha 09/02/15 05/24/17 Unknown Rx Inhaler] Ondansetron [Zofran TAB] 4 mg PO Q8HR PRN 09/02/15 05/24/17 Unknown History Aspirin EC [Aspirin Enteric Coated 81 mg PO QDAY #30 tablet 05/19/16 05/24/17 Unknown Rx TAB] Metoprolol Xl [Metoprolol 50 mg PO QDAY #30 tablet 05/19/16 05/24/17 Unknown Rx SUCCINATE ER TAB] Clopidogrel [Plavix] 75 mg PO QDAY 05/24/17 05/24/17 Unknown History Omeprazole Magnesium [PriLOSEC Otc] 20 mg PO QDAY 05/24/17 05/24/17 Unknown History ED Review of Systems ROS: Stated complaint: DOUGLAS Other details as noted in HPI Comment: All other systems reviewed and negative Constitutional: denies: chills, fever Eyes: denies: eye pain, eye discharge, vision change ENT: denies: ear pain, throat pain Respiratory: cough, shortness of breath Cardiovascular: denies: chest pain, palpitations Gastrointestinal: denies: abdominal pain, nausea, diarrhea Genitourinary: denies: urgency, dysuria, discharge Musculoskeletal: denies: back pain, joint swelling, arthralgia Skin: denies: rash, lesions Neurological: denies: headache, weakness, paresthesias Physical Exam - Physical Exam Vital Signs: Vital Signs 05/24/17 07:04 Temperature 98.1 F Pulse Rate 70 Respiratory 14 Rate Blood Pressure 96/46 Blood Pressure 96/46 [Right] O2 Sat by Pulse 96 Oximetry Physical Exam: GENERAL: The patient is well-developed well-nourished. HENT: Normocephalic. Atraumatic. Patient has moist mucous membranes. EYES: Extraocular motions are intact. Pupils equal reactive to light bilaterally. NECK: Supple. Trachea is midline. CHEST/LUNGS: Coarse breath sounds throughout the chest. There is no respiratory distress noted. HEART/CARDIOVASCULAR: Regular. There is no tachycardia. There is no murmur. ABDOMEN: Abdomen is soft, nontender. Patient has normal bowel sounds. There is no abdominal distention. SKIN: Skin is warm and dry. There is some mild pitting edema to the bilateral lower extremities. NEURO: The patient is awake, alert. The patient is cooperative. The patient has no focal neurologic deficits. The patient has normal speech. MUSCULOSKELETAL: There is no tenderness or deformity. There is no limitation range of motion. There is no evidence of acute injury. ED Course Vital Signs 05/24/17 07:04 Temperature 98.1 F Pulse Rate 70 Respiratory 14 Rate Blood Pressure 96/46 Blood Pressure 96/46 [Right] O2 Sat by Pulse 96 Oximetry - Consultations Consultation #1: I spoke with Dr Riley at [place] and got permission to admit the patient here to [facility]. 05/24/17 12:20 ED Medical Decision Making - Lab Data Result diagrams: 05/24/17 07:31 05/24/17 07:31 - EKG Data -: EKG Interpreted by Me EKG shows normal: sinus rhythm, axis, intervals, QRS complexes, ST-T waves Rate: normal - EKG Data Interpretation: normal EKG, unchanged when compared t - Radiology Data Radiology results: image reviewed interpreted by me: Chest x-ray shows some mild cardiomegaly, some pulmonary vascular congestion and some mild basilar pleural effusions. - Medical Decision Making Patient presents with a complaint of some shortness of breath. She is due for dialysis today. She has some coarse breath sounds and lower extremity edema but does not appear in any respiratory distress. However chest x-ray does show some fluid overload. She has an elevated troponin and elevated BNP but the patient is end-stage renal disease. The patient had some borderline hypotension. She was given a small bolus of IV fluid when she first arrived and has maintained a systolic in the 90s. I spoke to [place] and got permission to admit the patient to [facility]. Patient was accepted for admission by the hospitalist, Dr. Rabago. He requested Dr. Cid for nephrology consultation. - Differential Diagnosis CHF, Pneumonia, COPD, Asthma Critical Care Time: No Critical care attestation.: If time is entered above; I have spent that time in minutes in the direct care of this critically ill patient, excluding procedure time. ED Disposition Clinical Impression: Shortness of breath, Elevated troponin CHF (congestive heart failure) Qualifiers: Congestive heart failure type: unspecified Congestive heart failure chronicity : acute on chronic Qualified Code(s): I50.9 - Heart failure, unspecified Pulmonary edema Qualifiers: Chronicity: acute Qualified Code(s): J81.0 - Acute pulmonary edema Dyspnea Qualifiers: Dyspnea type: shortness of breath Qualified Code(s): R06.02 - Shortness of breath Disposition: 09 OP ADMIT IP TO THIS HOSP Is pt being admited?: Yes Condition: Stable Time of Disposition: 12:21
[2017-05-24 07:49] LABS: Basophils # (Auto) 0.1 K/mm3 (0.0-0.1); Basophils % (Auto) 1.3 % (0.0-1.8); Eosinophils # (Auto) 0.4 K/mm3 (0.0-0.4); Eosinophils % (Auto) 9.6 % (0.0-4.3); Hematocrit 33.5 % (30.3-42.9); Hemoglobin 10.2 gm/dl (10.1-14.3); Lymphocytes # (Auto) 0.4 K/mm3 (1.2-5.4); Lymphocytes % (Auto) 9.4 % (13.4-35.0); Mean Corpuscular HGB Conc 30 % (30-34); Mean Corpuscular Hemoglobin 31 pg (28-32); Mean Corpuscular Volume 101 fl (79-97); Monocytes # (Auto) 0.3 K/mm3 (0.0-0.8); Monocytes % (Auto) 6.8 % (0.0-7.3); Platelet Count 156 K/mm3 (140-440); Red Blood Count 3.32 M/mm3 (3.65-5.03); Red Cell Distribution Width 19.3 % (13.2-15.2)
[2017-05-24 07:58] LABS: INR 1.4 (0.87-1.13)
[2017-05-24 07:59] LABS: Partial Thromboplastin Time 35.6 Sec. (24.2-36.6)
[2017-05-24] MEDS ORDERED: NACL 0.9% 500 ML 500 ML ONE (08:06)
[2017-05-24 08:09] LABS: Creatine Kinase MB 3.8 ng/mL (0.0-4.0)
[2017-05-24 08:10] LABS: Albumin 4.1 g/dL (3.9-5); Calcium 8.7 mg/dL (8.4-10.2)
[2017-05-24] MEDS ORDERED: NACL 0.9% 500 ML 500 ML IV ONE (08:39)
--- NOTE | 2017-05-24 08:48 | XRay Report ---
Portable chest: Dyspnea. The heart is probably normal in size for positioning and degree of inspiration. There is mild vascular congestion. No effusions and no focal infiltrate. The vascular congestion may be slightly worsened seen on prior study in November 2016 but improved compared to an exam in July 2016. Impression: Findings most likely represent mild congestive failure.
[2017-05-24 09:06] LABS: Chol/HDL Ratio 1.77 %
--- NOTE | 2017-05-24 12:47 | Consultation ---
History of Present Illness - Reason for Consult Consult date: 05/24/17 end stage renal disease - History of Present Illness The patient is a 77-year-old AAF with medical history significant for Asthma, CHF, Type 2 diabetes, Hypertension and ESRD on HD (TTS) presented to the emergency department via EMS with shortness of breath and feeling "sick". Difficult to obtain history from patient due to hard of hearing. The symptoms started this morning around 5 AM. EMS found the patient's pulse-ox to be 88-89 % on room air. No h/o chest pain, lower extremity swelling, fever, nausea or vomiting. She is followed by [place] physicians. No h/o missed hemodialysis. CXR suggestive of fluid overload. Past History Past Medical History: diabetes, dialysis, ESRD, hypertension Medications and Allergies Allergies Allergy/AdvReac Type Severity Reaction Status Date / Time No Known Allergies Allergy Unverified 04/20/13 02:00 Home Medications Medication Instructions Recorded Confirmed Last Taken Type Cinacalcet [Sensipar] 30 mg PO QDAY 04/20/13 05/24/17 Unknown History FLUoxetine HCL [PROzac] 20 mg PO DAILY 04/20/13 05/24/17 Unknown History Albuterol Sulfate [Albuterol 0.63% 0.63 mg IH TID PRN #50 dose 04/23/13 Unknown Rx NEBS] ALBUTEROL Inhaler [ProAir HFA 1 - 2 puff IH Q4H PRN #1 inha 09/02/15 05/24/17 Unknown Rx Inhaler] Ondansetron [Zofran TAB] 4 mg PO Q8HR PRN 09/02/15 05/24/17 Unknown History Aspirin EC [Aspirin Enteric Coated 81 mg PO QDAY #30 tablet 05/19/16 05/24/17 Unknown Rx TAB] Metoprolol Xl [Metoprolol 50 mg PO QDAY #30 tablet 05/19/16 05/24/17 Unknown Rx SUCCINATE ER TAB] Clopidogrel [Plavix] 75 mg PO QDAY 05/24/17 05/24/17 Unknown History Omeprazole Magnesium [PriLOSEC Otc] 20 mg PO QDAY 05/24/17 05/24/17 Unknown History Active Meds: Active Medications Heparin Sodium (Porcine) (Heparin) 5,000 unit SUB-Q Q12HR SCOTTY Review of Systems ROS unobtainable: due to mental status (very hard of hearing) Exam - Vital Signs Vital signs: Vital Signs Pulse Resp 71 16 05/24/17 06:56 05/24/17 06:56 - General Appearance General appearance: well-developed, well-nourished, appears stated age, other ( no distress) EENT: ATNC, PERRL, vision intact, hearing diminished Neck: Present: neck supple, trachea midline Respiratory: Clear to Ascultation Heart: regular, S1S2, no murmurs Gastrointestinal: Present: normoactive bowel sounds. Absent: tenderness, distended Integumentary: no rash, warm and dry Neurologic: no asterixis, other (hard of hearing) Musculoskeletal: Present: other (no edema, left arm AVG) Psychiatric: mood/affect appropriate, cooperative Results - Lab Results 05/24/17 07:31 05/24/17 07:31 Most recent lab results Calcium 8.7 mg/dL (8.4-10.2) 05/24/17 07:31 Assessment and Plan 1. Volume overload: UF with hemodialysis today. Orders placed. 2. ESRD: Hemodialysis three times a week. 3. Anemia. 4. Hypertension. 5. Asthma.
[2017-05-24] MEDS ORDERED: NACL 0.9% 100 ML IV PRN (13:00)
[2017-05-24] MEDS ORDERED: NACL 0.9 (PRIMING MACHINE ONLY DIALYSIS) MC ONE (17:25)
--- NOTE | 2017-05-24 17:30 | Event Note ---
Date: 05/24/17
--- NOTE | 2017-05-24 20:26 | Consultation ---
History of Present Illness - Reason for Consult Consult date: 05/24/17 - History of Present Illness pt was seen and examined during HD today around 5 PM.BP-117/64,P-72,afebrile. Consult dictated. Spoke with Medications and Allergies Allergies Allergy/AdvReac Type Severity Reaction Status Date / Time No Known Allergies Allergy Unverified 04/20/13 02:00 Home Medications Medication Instructions Recorded Confirmed Last Taken Type Cinacalcet [Sensipar] 30 mg PO QDAY 04/20/13 05/24/17 Unknown History FLUoxetine HCL [PROzac] 20 mg PO DAILY 04/20/13 05/24/17 Unknown History Albuterol Sulfate [Albuterol 0.63% 0.63 mg IH TID PRN #50 dose 04/23/13 Unknown Rx NEBS] ALBUTEROL Inhaler [ProAir HFA 1 - 2 puff IH Q4H PRN #1 inha 09/02/15 05/24/17 Unknown Rx Inhaler] Ondansetron [Zofran TAB] 4 mg PO Q8HR PRN 09/02/15 05/24/17 Unknown History Aspirin EC [Aspirin Enteric Coated 81 mg PO QDAY #30 tablet 05/19/16 05/24/17 Unknown Rx TAB] Metoprolol Xl [Metoprolol 50 mg PO QDAY #30 tablet 05/19/16 05/24/17 Unknown Rx SUCCINATE ER TAB] Clopidogrel [Plavix] 75 mg PO QDAY 05/24/17 05/24/17 Unknown History Omeprazole Magnesium [PriLOSEC Otc] 20 mg PO QDAY 05/24/17 05/24/17 Unknown History Active Meds: Active Medications Heparin Sodium (Porcine) (Heparin) 5,000 unit SUB-Q Q12HR SCOTTY Sodium Chloride (Nacl 0.9%) 100 mls @ 999 mls/hr IV KIRSTEN PRN PRN Reason: Hypotension Exam - Constitutional Vitals: Temp Pulse Resp BP Pulse Ox 98.0 F 59 L 18 113/58 88 05/24/17 17:45 05/24/17 17:45 05/24/17 17:45 05/24/17 17:45 05/24/17 13:00 Results - Labs CBC & Chem 7: 05/24/17 07:31 05/24/17 07:31 Labs: Abnormal lab results 05/24/1718 05/24/17 Range/Units 07:21 07:31 07:31 WBC 4.3 L (4.5-11.0) K/mm3 RBC 3.32 L (3.65-5.03) M/mm3 MCV 101 H (79-97) fl RDW 19.3 H (13.2-15.2) % Lymph % (Auto) 9.4 L (13.4-35.0) % Eos % (Auto) 9.6 H (0.0-4.3) % Lymph # 0.4 L (1.2-5.4) K/mm3 Seg Neutrophils % 72.9 H (40.0-70.0) % PT (12.2-14.9) Sec. INR (0.87-1.13) Chloride 96.9 L (98-107) mmol/L BUN 33 H (7-17) mg/dL Creatinine 7.6 H (0.7-1.2) mg/dL Glucose 194 H (65-100) mg/dL Alkaline Phosphatase 180 H (35-129) units/L CK-MB (CK-2) Rel Index 5.8 H (0-4) Troponin T 0.106 H* (0.00-0.029) ng/mL NT-Pro-B Natriuret Pep > 21405 H (0-900) pg/mL LDL Cholesterol Direct 32 L (50-130) mg/dL HDL Cholesterol 63 H (40-59) mg/dL 05/24/17 Range/Units 07:31 WBC (4.5-11.0) K/mm3 RBC (3.65-5.03) M/mm3 MCV (79-97) fl RDW (13.2-15.2) % Lymph % (Auto) (13.4-35.0) % Eos % (Auto) (0.0-4.3) % Lymph # (1.2-5.4) K/mm3 Seg Neutrophils % (40.0-70.0) % PT 17.9 H (12.2-14.9) Sec. INR 1.40 H (0.87-1.13) Chloride (98-107) mmol/L BUN (7-17) mg/dL Creatinine (0.7-1.2) mg/dL Glucose (65-100) mg/dL Alkaline Phosphatase (35-129) units/L CK-MB (CK-2) Rel Index (0-4) Troponin T (0.00-0.029) ng/mL NT-Pro-B Natriuret Pep (0-900) pg/mL LDL Cholesterol Direct (50-130) mg/dL HDL Cholesterol (40-59) mg/dL
--- NOTE | 2017-05-24 20:31 | Event Note ---
Date: 05/24/17 Got a call from that patient is followed by . Will sign off.
[2017-05-24] MEDS ORDERED: HEPARIN ONE (22:45)
[2017-05-24] MEDS: HEPARIN SUB-Q SCH (23:15)
[2017-05-25] MEDS ORDERED: PROAIR IH PRN (07:17)
[2017-05-25] MEDS ORDERED: TYLENOL PO PRN (07:19)
[2017-05-25] MEDS ORDERED: PROVENTIL IH PRN (07:48)
--- NOTE | 2017-05-25 07:59 | History and Physical Report ---
CHIEF COMPLAINT: Increasing shortness of breath since morning. HISTORY OF PRESENT ILLNESS: A 77-year-old female who comes to the ER for increasing shortness of breath since morning. EMS found her oxygen levels past to be in 88%-89% on room air. The patient uses oxygen also at home at 3 liters. With 3 liters, the oxygen went up to 95. No fever, no chills. End-stage renal disease, no missed dialysis. A recent echo in 2017 showed an ejection fraction of 55%-60%. Also has coronary artery disease. No fever, no chills. PAST MEDICAL HISTORY: Significant for hypertension and end-stage renal disease, CHF, diabetes, asthma. PAST SURGICAL HISTORY: Coronary stent in 2016 of circumflex artery, hysterectomy, fistula to the left upper extremity, and cardiac catheterization in May 2016. SOCIAL HISTORY: is a former smoker. FAMILY HISTORY: Significant for hypertension. CURRENT MEDICATIONS: On the chart. REVIEW OF SYSTEMS: Increasing shortness of breath. Otherwise, review of systems is essentially negative. PHYSICAL EXAMINATION: GENERAL: Elderly female, cooperative during examination. VITAL SIGNS: Blood pressure is 96/46, temperature 98.1, pulse 70, respirations are 14. HEENT: Unremarkable. Pupils are equal and reactive. LUNGS: Clear to auscultation and percussion. CARDIOVASCULAR: S1-S2 heard. No gallop, no murmur, no rub. Apical impulse in the left fifth intercostal space and midclavicular line. ABDOMEN: Soft and benign. No hepatosplenomegaly. No guarding, no rigidity. Hernial orifices are normal. EXTREMITIES: Good pedal pulses. No pedal edema. CENTRAL NERVOUS SYSTEM: Alert and oriented x 4, nonfocal exam. SKIN: Normal. LABORATORY DATA: Chest x-ray shows pulmonary vascular congestion. EKG shows sinus rhythm with normal QRS intervals, nonspecific ST-T wave changes. White count is 4300, H and H is 10.2 and 33.5, BUN and creatinine 33 and 7.6. ASSESSMENT AND PLAN: 1. Congestive heart failure exacerbation secondary to volume overload. The patient needs emergent hemodialysis and increased ultrafiltration. 2. End-stage renal disease, on dialysis. Continue hemodialysis. 3. Chronic obstructive pulmonary disease. Continue DuoNeb q. 6 round the clock. 4. Hypertension. Continue metoprolol 50 mg once a day. 5. Coronary artery disease. Continue Plavix 75 mg once a day. 6. Depression. Continue fluoxetine 20 mg once a day. 7. Gastroesophageal reflux disease. Continue Prilosec or Protonix once a day. 8. Deep venous thrombosis prophylaxis, heparin 5000 q. 12 hours[address] [facility]# [id number] VSM/NTS
[2017-05-25] MEDS: NOVOLOG SUB-Q SCH ×4 (08:28→22:47)
[2017-05-25] MEDS ORDERED: DILAUDID IV PRN (08:30)
[2017-05-25] MEDS ORDERED: ZOFRAN PO PRN (08:30)
[2017-05-25] MEDS ORDERED: PERCOCET 5/325 PO PRN (08:30)
[2017-05-25] MEDS ORDERED: ZOFRAN IV PRN (08:30)
[2017-05-25] MEDS ORDERED: MILK OF MAGNESIA PO PRN (08:30)
--- NOTE | 2017-05-25 09:46 | Consultation ---
REASON FOR CONSULTATION: Renal failure. HISTORY OF PRESENT ILLNESS: This 77-year-old -[place] female, well known to our service with end-stage renal disease, on hemodialysis 3 times a week, was brought to the Emergency Room for having shortness of breath and feeling sick since this morning. The patient is very vague in her symptoms, stating that she is just feeling sick in the chest, in the middle part. The patient goes to [facility] 3 times a week. She has a history of asthma and recurrent nausea and vomiting and congestive heart failure and coronary artery disease. She had a coronary stent placement about a year ago. Usually, the patient gets admitted to [facility]. PAST MEDICAL HISTORY: End-stage renal disease, diabetes, hypertension, asthma, coronary artery disease. PERSONAL HISTORY: No history of smoking, alcohol, or drug abuse. ALLERGIES: None. HOME MEDICATIONS: Reviewed. REVIEW OF SYSTEMS: Denies fever or chills. Denies difficulty swallowing. Has shortness of breath, and feels sick in the chest, pointing out along the sternal bone. Denies abdomen pain, nausea, vomiting, diarrhea. Does not make much urine. All other review of systems reviewed and negative. PHYSICAL EXAMINATION: GENERAL: The patient is alert, oriented to person and place. VITAL SIGNS: Blood pressure 117/64, pulse 72, afebrile. HEENT: Conjunctivae pale. Oral mucosa, tongue and lips are dry. NECK: No JVD, no thyroid enlargement. LUNGS: Scattered rhonchi. HEART: S1, S2 regular. No pericardial rub. ABDOMEN: Soft, bowel sounds present. Nontender. EXTREMITIES: No significant edema. LABORATORY DATA: WBC ____, hemoglobin 10.2, hematocrit 33.5, platelets 156. Sodium 142, potassium 4.4, chloride 96.9, CO2 26, BUN ____, creatinine 7.6, glucose 194. BNP greater than 70,000. ASSESSMENT AND PLAN: 1. Atypical chest pain. 2. Fluid overload. 3. End-stage renal disease. 4. History of coronary artery disease status post percutaneous coronary angioplasty in 05/2016 to circumflex artery. Hemodialysis with ultrafiltration as tolerated. The patient's blood pressure is noted to be marginal. Hold off on blood pressure medications. Renal diet. Adjust medications per renal function. Discussed with Dr. Rabago. JOB# [id number] AUSTEN/KADIE
[2017-05-25] MEDS ORDERED: NON-FORMULARY (Fluoxetine Hcl [Prozac] 20 MG) PO SCH (10:00)
[2017-05-25] MEDS ORDERED: DULCOLAX PR PRN (10:00)
[2017-05-25] MEDS ORDERED: NON-FORMULARY (Omeprazole Magnesium [Prilosec Otc] 20 MG) PO SCH (10:00)
[2017-05-25] MEDS: DUONEB *Not for PRN Use IH SCH ×3 (10:18→21:09)
[2017-05-25] MEDS: HALFPRIN EC PO SCH (10:30)
[2017-05-25] MEDS: HEPARIN SUB-Q SCH ×2 (10:30→22:46)
[2017-05-25] MEDS: PROTONIX PO SCH (10:31)
[2017-05-25] MEDS: PLAVIX PO SCH (10:31)
[2017-05-25] MEDS: PROzac PO SCH (10:32)
[2017-05-25] MEDS: SENSIPAR PO SCH (10:32)
[2017-05-25] MEDS: TOPROL XL PO SCH (10:33)
--- NOTE | 2017-05-25 11:11 | Progress Note ---
Assessment and Plan Assessment and plan: Acute hypoxic respiratory failure. Etiology secondary to asthma exacerbation and volume overload. Continue O2 for supportive care. BiPAP as clinically indicated. Acute asthma exacerbation. Continue breathing treatments, start IV steroids, and O2. Acute diastolic CHF exacerbation. Continue hemodialysis for volume control. Cardiology consultation. Well-preserved left ventricle systolic function, EF 55 % on echocardiogram 04/2016. However patient with moderate concentric LVH. Severe aortic stenosis. Cardiology recommended previous evaluation as an outpatient by CT surgery. Multivessel coronary artery disease. She has multiple lesions in the proximal and mid right coronary artery, ultimately lesions in the circumflex and obtuse marginal vessels, and a proximal diagonal branch of the LAD. Hypertension. Continue antihypertensives medications. ESRD. Continue hemodialysis per nephrology. History Interval history: Patient complains of dyspnea with exertion. Hospitalist Physical - Constitutional Vitals: Temp Pulse Resp BP Pulse Ox 97.2 F L 78 20 118/64 100 05/25/17 09:20 05/25/17 10:39 05/25/17 10:39 05/25/17 09:20 05/25/17 10:15 General appearance: Present: no acute distress, well-nourished - EENT Eyes: Present: PERRL, EOM intact ENT: hearing intact, clear oral mucosa, dentition normal - Neck Neck: Present: supple, normal ROM - Respiratory Respiratory effort: normal Respiratory: bilateral: diminished, wheezing - Cardiovascular Rhythm: regular Heart Sounds: Present: S1 & S2. Absent: gallop, rub - Extremities Extremities: no ischemia, No edema, Full ROM - Abdominal General gastrointestinal: soft, non-tender, non-distended, normal bowel sounds - Integumentary Integumentary: Present: clear, warm, dry - Neurologic Neurologic: CNII-XII intact, moves all extremities Results - Labs CBC & Chem 7: 05/24/17 07:31 05/24/17 07:31 Labs: Laboratory Last Values WBC 4.3 K/mm3 (4.5-11.0) L 05/24/17 07:31 RBC 3.32 M/mm3 (3.65-5.03) L 05/24/17 07:31 Hgb 10.2 gm/dl (10.1-14.3) 05/24/17 07:31 Hct 33.5 % (30.3-42.9) 05/24/17 07:31 MCV 101 fl (79-97) H 05/24/17 07:31 MCH 31 pg (28-32) 05/24/17 07:31 MCHC 30 % (30-34) 05/24/17 07:31 RDW 19.3 % (13.2-15.2) H 05/24/17 07:31 Plt Count 156 K/mm3 (140-440) 05/24/17 07:31 Lymph % (Auto) 9.4 % (13.4-35.0) L 05/24/17 07:31 [place] % (Auto) 6.8 % (0.0-7.3) 05/24/17 07:31 Eos % (Auto) 9.6 % (0.0-4.3) H 05/24/17 07:31 Baso % (Auto) 1.3 % (0.0-1.8) 05/24/17 07:31 Lymph # 0.4 K/mm3 (1.2-5.4) L 05/24/17 07:31 [place] # 0.3 K/mm3 (0.0-0.8) 05/24/17 07:31 Eos # 0.4 K/mm3 (0.0-0.4) 05/24/17 07:31 Baso # 0.1 K/mm3 (0.0-0.1) 05/24/17 07:31 Seg Neutrophils % 72.9 % (40.0-70.0) H 05/24/17 07: Seg Neutrophils # 3.2 K/mm3 (1.8-7.7) 05/24/17 07:31 PT 17.9 Sec. (12.2-14.9) H 05/24/17 07:31 INR 1.40 (0.87-1.13) H 05/24/17 07:31 APTT 35.6 Sec. (24.2-36.6) 05/24/17 07:31 Sodium 142 mmol/L (137-145) 05/24/17 07:31 Potassium 4.4 mmol/L (3.6-5.0) 05/24/17 07:31 Chloride 96.9 mmol/L (98-107) L 05/24/17 07:31 Carbon Dioxide 26 mmol/L (22-30) 02/08/18 07:31 Anion Gap 24 mmol/L 05/24/17 07:31 BUN 33 mg/dL (7-17) H 05/24/17 07:31 Creatinine 7.6 mg/dL (0.7-1.2) H 05/24/17 07:31 Estimated GFR 6 ml/min 05/24/17 07:31 BUN/Creatinine Ratio 4 % 05/24/17 07:31 Glucose 194 mg/dL (65-100) H 05/24/17 07:31 POC Glucose 178 (70-105) H 05/25/17 00:06 Hemoglobin A1c 5.7 % (4-6) 05/25/17 07:42 Calcium 8.7 mg/dL (8.4-10.2) 05/24/17 07:31 Total Bilirubin 0.40 mg/dL (0.1-1.2) 05/24/17 07:31 AST 23 units/L (5-40) 05/24/17 07:31 ALT 14 units/L (7-56) 05/24/17 07:31 Alkaline Phosphatase 180 units/L (35-129) H 05/24/17 07:31 Total Creatine Kinase 65 units/L (30-135) 05/24/17 07:31 CK-MB (CK-2) 3.8 ng/mL (0.0-4.0) 05/24/17 07:31 CK-MB (CK-2) Rel Index 5.8 (0-4) H 05/24/17 07:31 Troponin T 0.106 ng/mL (0.00-0.029) H* 05/24/17 07:31 NT-Pro-B Natriuret Pep > 12630 pg/mL (0-900) H 05/24/17 07:21 Total Protein 6.6 g/dL (6.3-8.2) 05/24/17 07:31 Albumin 4.1 g/dL (3.9-5) 05/24/17 07:31 Albumin/Globulin Ratio 1.6 % 05/24/17 07:31 Triglycerides 86 mg/dL (2-149) 05/24/17 07:31 Cholesterol 112 mg/dL (50-199) 05/24/17 07:31 LDL Cholesterol Direct 32 mg/dL (50-130) L 02/08/18 07:31 HDL Cholesterol 63 mg/dL (40-59) H 05/24/17 07:31 Cholesterol/HDL Ratio 1.77 % 05/24/17 07:31
[2017-05-25] MEDS ORDERED: PNEUMOVAX 23 IM ONE (12:00)
--- NOTE | 2017-05-25 12:10 | Consultation ---
History of Present Illness Consult date: 05/25/17 Consult reason: congestive heart failure History of present illness: This is a 77yr old woman with multiple medical problems. She had end-stage renal failure on hemodialysis, coronary artery disease and aortic stenosis. She has an indwelling cardiac pacemaker. Her coronary disease and aortic stenosis has been recommended to be evaluated as an outpatient by CT surgery but it is uncertain if this was done. Patient is followed by [facility] as an outpatient. She presents with shortness of breath, feeling ill and was admitted to the hospital for further evaluation. A cardiac consultation was requested for CHF. Chest xray reports mild vascular congestion. There is lower extremity edema. Patient denies chest pain and palpitations. Her ECG is benign, a sinus rhythm. Past History Past Medical History: diabetes, dialysis, ESRD, hypertension Medications and Allergies Allergies Allergy/AdvReac Type Severity Reaction Status Date / Time No Known Allergies Allergy Unverified 04/20/13 02:00 Home Medications Medication Instructions Recorded Confirmed Last Taken Type Cinacalcet [Sensipar] 30 mg PO QDAY 04/20/13 05/24/17 Unknown History FLUoxetine HCL [PROzac] 20 mg PO DAILY 04/20/13 05/24/17 Unknown History Albuterol Sulfate [Albuterol 0.63% 0.63 mg IH TID PRN #50 dose 04/23/13 Unknown Rx NEBS] ALBUTEROL Inhaler [ProAir HFA 1 - 2 puff IH Q4H PRN #1 inha 09/02/15 05/24/17 Unknown Rx Inhaler] Ondansetron [Zofran TAB] 4 mg PO Q8HR PRN 09/02/15 05/24/17 Unknown History Aspirin EC [Aspirin Enteric Coated 81 mg PO QDAY #30 tablet 05/19/16 05/24/17 Unknown Rx TAB] Metoprolol Xl [Metoprolol 50 mg PO QDAY #30 tablet 05/19/16 05/24/17 Unknown Rx SUCCINATE ER TAB] Clopidogrel [Plavix] 75 mg PO QDAY 05/24/17 05/24/17 Unknown History Omeprazole Magnesium [PriLOSEC Otc] 20 mg PO QDAY 05/24/17 05/24/17 Unknown History Active Meds: Active Medications Acetaminophen (Tylenol) 650 mg PO Q4H PRN PRN Reason: Pain MILD(1-3)/Fever >100.5/GORMAN Albuterol (Proventil) 2.5 mg IH Q4HRT PRN PRN Reason: Shortness Of Breath Albuterol/Ipratropium (Duoneb *Not For Prn Use*) 1 ampul IH Q6HRT [facility] Last Admin: 05/25/17 10:18 Dose: 1 ampul Aspirin (Halfprin Ec) 81 mg PO QDAY [facility] Bisacodyl (Dulcolax) 10 mg AL QDAY PRN PRN Reason: Constipation unrelieved by MOM Cinacalcet (Sensipar) 30 mg PO QDAY [facility] Clopidogrel Bisulfate (Plavix) 75 mg PO QDAY [facility] Fluoxetine HCl (Prozac) 20 mg PO QDAY [facility] Heparin Sodium (Porcine) (Heparin) 5,000 unit SUB-Q Q12HR [facility] Last Admin: 05/24/17 23:15 Dose: 5,000 unit Hydromorphone HCl (Dilaudid) 0.5 mg IV Q3H PRN PRN Reason: Pain , Severe (7-10) Sodium Chloride (Nacl 0.9%) 100 mls @ 999 mls/hr IV KIRSTEN PRN PRN Reason: Hypotension Insulin Aspart (Novolog) 0 units SUB-Q ACHS [facility] PRN Reason: Protocol Magnesium Hydroxide (Milk Of Magnesia) 30 ml PO Q4H PRN PRN Reason: Constipation Methylprednisolone Sodium Succinate (Solu-Medrol) 40 mg IV Q8HR [facility] Metoprolol Succinate (Toprol Xl) 50 mg PO QDAY [facility] Ondansetron HCl (Zofran) 4 mg PO Q8H PRN PRN Reason: Nausea Ondansetron HCl (Zofran) 4 mg IV Q8H PRN PRN Reason: Nausea And Vomiting Oxycodone/Acetaminophen (Percocet 5/325) 1 tab PO Q6H PRN PRN Reason: Pain, Moderate (4-6) Pantoprazole Sodium (Protonix) 20 mg PO QDAY [facility] Physical Examination Vital Signs Pulse Resp 71 16 05/24/17 06:56 05/24/17 06:56 General appearance: no acute distress HEENT: Positive: PERRL Cardiac: Positive: Reg Rate and Rhythm, Systolic Murmur Lungs: Positive: Decreased Breath Sounds Neuro: Positive: Grossly Intact Extremities: Absent: edema Results 05/24/17 07:31 02/08/18 07:31 Assessment and Plan Volume overload ESRD on HD Coronary artery disease Aortic stenosis EF 55% on echo 04/2016. Hypertension Chronic elevated troponin likely secondary to renal disease. patient denies chest pain. Recommend: Medical management for coronary disease and valvular heart disease. Dialysis for shortness of breath and fluid overload.
--- NOTE | 2017-05-25 13:27 | Progress Note ---
Assessment and Plan Impression: * ESRD * Acute resp failure * Asthma * Acute Dial CHF * Severe Aortic Stenosis * CAD * HTN Plan: * HD q TTHSAT * strict i/os * uf as tolerated with hd * asthma management per primary team * renal diet * epogen with hd Subjective Date of service: 05/25/17 Principal diagnosis: esrd Interval history: resting well in bed today Objective - Exam Narrative Exam: General appearance: Present: no acute distress, well-nourished - EENT Eyes: Present: PERRL, EOM intact ENT: hearing intact, clear oral mucosa, dentition normal - Neck Neck: Present: supple, normal ROM - Respiratory Respiratory effort: normal Respiratory: bilateral: diminished, wheezing - Cardiovascular Rhythm: regular Heart Sounds: Present: S1 & S2. Absent: gallop, rub - Extremities Extremities: no ischemia, No edema, Full ROM - Abdominal General gastrointestinal: soft, non-tender, non-distended, normal bowel sounds - Integumentary Integumentary: Present: clear, warm, dry - Neurologic Neurologic: CNII-XII intact, moves all extremities - Vital Signs Vital signs: Vital Signs - 12hr 05/25/17 05/25/17 05/25/17 04:59 09:20 10:15 Temperature 97.9 F 97.2 F L Pulse Rate 81 Pulse Rate [ 69 Anterior Bilateral Throughout] Respiratory 16 Rate Respiratory 20 Rate [Anterior Bilateral Throughout] Blood Pressure 124/69 118/64 O2 Sat by Pulse 100 100 Oximetry 05/25/17 10:39 Temperature Pulse Rate Pulse Rate [ 78 Anterior Bilateral Throughout] Respiratory Rate Respiratory 20 Rate [Anterior Bilateral Throughout] Blood Pressure O2 Sat by Pulse Oximetry - Lab 05/24/17 07:31 05/24/17 07:31 Most recent lab results Calcium 8.7 mg/dL (8.4-10.2) 05/24/17 07:31
[2017-05-26] MEDS: DUONEB *Not for PRN Use IH SCH ×4 (02:27→19:53)
[2017-05-26 06:02] LABS: Hematocrit 35.1 % (30.3-42.9); Hemoglobin 10.8 gm/dl (10.1-14.3); Mean Corpuscular HGB Conc 31 % (30-34); Mean Corpuscular Hemoglobin 31 pg (28-32); Mean Corpuscular Volume 101 fl (79-97); Platelet Count 191 K/mm3 (140-440); Red Cell Distribution Width 19.2 % (13.2-15.2)
[2017-05-26 06:29] LABS: Albumin 4.4 g/dL (3.9-5); Calcium 8.1 mg/dL (8.4-10.2)
[2017-05-26 07:11] LABS: Anisocytosis 1+; Basophils % (Manual) 0 % (0.0-1.8); Burr Cells Rare; Eosinophils % (Manual) 0 % (0.0-4.3); Hypochromasia 1+; Macrocytosis 1+; Total Cells Counted 100
[2017-05-26 07:12] LABS: Ovalocytes 1+
[2017-05-26] MEDS: HALFPRIN EC PO SCH (10:06)
[2017-05-26] MEDS: SENSIPAR PO SCH (10:06)
[2017-05-26] MEDS: PROTONIX PO SCH (10:06)
[2017-05-26] MEDS: PROzac PO SCH (10:07)
[2017-05-26] MEDS: TOPROL XL PO SCH (10:07)
[2017-05-26] MEDS: PLAVIX PO SCH (10:07)
[2017-05-26] MEDS: HEPARIN SUB-Q SCH ×2 (10:08→23:02)
[2017-05-26] MEDS: NOVOLOG SUB-Q SCH ×4 (10:09→23:03)
--- NOTE | 2017-05-26 11:32 | Progress Note ---
Assessment and Plan Assessment and plan: Acute hypoxic respiratory failure. Etiology secondary to asthma exacerbation and volume overload. Continue O2 for supportive care. BiPAP as clinically indicated. Acute asthma exacerbation. Continue breathing treatments, continued IV steroids , and O2. Acute diastolic CHF exacerbation. Continue hemodialysis for volume control. Cardiology consultation. Well-preserved left ventricle systolic function, EF 55 % on echocardiogram 04/2016. However patient with moderate concentric LVH. Severe aortic stenosis. Cardiology recommended previous evaluation as an outpatient by CT surgery. Echocardiogram to evaluate severity of aortic stenosis. Multivessel coronary artery disease. She has multiple lesions in the proximal and mid right coronary artery, ultimately lesions in the circumflex and obtuse marginal vessels, and a proximal diagonal branch of the LAD. Cardiology potentially considering PCI to left circumflex lesions. Hypertension. Continue antihypertensives medications. ESRD. Continue hemodialysis per nephrology. History Interval history: Patient complains of dyspnea with exertion. No new issues overnight Hospitalist Physical - Constitutional Vitals: Temp Pulse Resp BP Pulse Ox 97.8 F 84 18 121/62 100 05/26/17 05:31 05/26/17 10:07 05/26/17 05:31 05/26/17 10:07 05/26/17 05:31 General appearance: Present: no acute distress - EENT Eyes: Present: PERRL, EOM intact ENT: hearing intact, clear oral mucosa, dentition normal - Neck Neck: Present: supple, normal ROM - Respiratory Respiratory effort: normal Respiratory: bilateral: diminished, rales - Cardiovascular Rhythm: regular Heart Sounds: Present: S1 & S2. Absent: gallop, rub - Extremities Extremities: no ischemia, No edema, Full ROM - Abdominal General gastrointestinal: soft, non-tender, non-distended, normal bowel sounds - Integumentary Integumentary: Present: clear, warm, dry - Neurologic Neurologic: CNII-XII intact, moves all extremities Results - Labs CBC & Chem 7: 05/26/17 05:29 05/26/17 05:29 Labs: Laboratory Last Values WBC 4.1 K/mm3 (4.5-11.0) L 05/26/17 05:29 RBC 3.50 M/mm3 (3.65-5.03) L 05/26/17 05:29 Hgb 10.8 gm/dl (10.1-14.3) 05/26/17 05:29 Hct 35.1 % (30.3-42.9) 05/26/17 05:29 MCV 101 fl (79-97) H 05/26/17 05:29 MCH 31 pg (28-32) 05/26/17 05:29 MCHC 31 % (30-34) 05/26/17 05:29 RDW 19.2 % (13.2-15.2) H 05/26/17 05:29 Plt Count 191 K/mm3 (140-440) 05/26/17 05:29 Lymph % (Auto) 9.4 % (13.4-35.0) L 05/24/17 07:31 [place] % (Auto) 6.8 % (0.0-7.3) 05/24/17 07:31 Eos % (Auto) 9.6 % (0.0-4.3) H 05/24/17 07:31 Baso % (Auto) 1.3 % (0.0-1.8) 05/24/17 07:31 Lymph # 0.4 K/mm3 (1.2-5.4) L 05/24/17 07:31 [place] # 0.3 K/mm3 (0.0-0.8) 05/24/17 07:31 Eos # 0.4 K/mm3 (0.0-0.4) 05/24/17 07:31 Baso # 0.1 K/mm3 (0.0-0.1) 05/24/17 07:31 Add Manual Diff Complete 05/26/17 05:29 Total Counted 100 05/26/17 05:29 Seg Neutrophils % Extension Service Supervisor 05/26/17 05:29 Seg Neuts % (Manual) 93.0 % (40.0-70.0) H 05/26/17 05:29 Band Neutrophils % 0 % 05/26/17 05:29 Lymphocytes % (Manual) 6.0 % (13.4-35.0) L 05/26/17 05:29 Reactive Lymphs % (Man) 0 % 05/26/17 05:29 Monocytes % (Manual) 1.0 % (0.0-7.3) 05/26/17 05:29 Eosinophils % (Manual) 0 % (0.0-4.3) 05/26/17 05:29 Basophils % (Manual) 0 % (0.0-1.8) 05/26/17 05:29 Metamyelocytes % 0 % 05/26/17 05: Myelocytes % 0 % 05/26/17 05: Promyelocytes % 0 % 05/26/17 05:29 Blast Cells % 0 % 05/26/17 05:29 Nucleated RBC % Not Reportable 05/26/17 05:29 Seg Neutrophils # 3.2 K/mm3 (1.8-7.7) 05/24/17 07:31 Seg Neutrophils # Man 3.8 K/mm3 (1.8-7.7) 05/26/17 05:29 Band Neutrophils # 0.0 K/mm3 05/26/17 05:29 Lymphocytes # (Manual) 0.2 K/mm3 (1.2-5.4) L 05/26/17 05:29 Abs React Lymphs (Man) 0.0 K/mm3 05/26/17 05:29 Monocytes # (Manual) 0.0 K/mm3 (0.0-0.8) 05/26/17 05:29 Eosinophils # (Manual) 0.0 K/mm3 (0.0-0.4) 05/26/17 05:29 Basophils # (Manual) 0.0 K/mm3 (0.0-0.1) 05/26/17 05:29 Metamyelocytes # 0.0 K/mm3 05/26/17 05:29 Myelocytes # 0.0 K/mm3 05/26/17 05:29 Promyelocytes # 0.0 K/mm3 05/26/17 05:29 Blast Cells # 0.0 K/mm3 05/26/17 05:29 WBC Morphology Not Reportable 05/26/17 05:29 Hypersegmented Neuts Not Reportable 05/26/17 05:29 Hyposegmented Neuts Not Reportable 05/26/17 05:29 Hypogranular Neuts Not Reportable 05/26/17 05:29 Smudge Cells Not Reportable 05/26/17 05:29 Toxic Granulation Not Reportable 05/26/17 05:29 Toxic Vacuolation Not Reportable 05/26/17 05:29 Dohle Bodies Not Reportable 05/26/17 05:29 Pelger-Huet Anomaly Not Reportable 05/26/17 05:29 Tod Rods Not Reportable 05/26/17 05:29 Platelet Estimate Appears normal 05/26/17 05:29 Clumped Platelets Not Reportable 05/26/17 05:29 Plt Clumps, EDTA Not Reportable 05/26/17 05:29 Large Platelets Not Reportable 05/26/17 05:29 Giant Platelets Not Reportable 05/26/17 05:29 Platelet Satelliting Not Reportable 05/26/17 05:29 Plt Morphology Comment Not Reportable 05/26/17 05:29 RBC Morphology Not Reportable 05/26/17 05:29 Dimorphic RBCs Not Reportable 05/26/17 05:29 Polychromasia Not Reportable 05/26/17 05:29 Hypochromasia 1+ 05/26/17 05:29 Poikilocytosis Not Reportable 05/26/17 05:29 Anisocytosis 1+ 05/26/17 05:29 Microcytosis 1+ 05/26/17 05:29 Macrocytosis 1+ 05/26/17 05:29 Spherocytes Not Reportable 05/26/17 05:29 Pappenheimer Bodies Not Reportable 05/26/17 05:29 Sickle Cells Not Reportable 05/26/17 05:29 Target Cells Not Reportable 05/26/17 05:29 Tear Drop Cells Not Reportable 05/26/17 05:29 Ovalocytes 1+ 05/26/17 05:29 Helmet Cells Not Reportable 05/26/17 05:29 [place] Bodies Not Reportable 05/26/17 05:29 [place] Rings Not Reportable 05/26/17 05:29 [place] Cells Rare 05/26/17 05:29 Bite Cells Not Reportable 05/26/17 05:29 Crenated Cell Not Reportable 05/26/17 05:29 Elliptocytes Few 05/26/17 05:29 Acanthocytes (Spur) Not Reportable 05/26/17 05:29 Rouleaux Not Reportable 05/26/17 05:29 Hemoglobin C Crystals Not Reportable 05/26/17 05:29 Schistocytes Not Reportable 05/26/17 05:29 Malaria parasites Not Reportable 05/26/17 05:29 Hector Bodies Not Reportable 05/26/17 05:29 Hem Pathologist Commnt No 05/26/17 05:29 PT 17.9 Sec. (12.2-14.9) H 05/24/17 07:31 INR 1.40 (0.87-1.13) H 05/24/17 07:31 APTT 35.6 Sec. (24.2-36.6) 05/24/17 07:31 Sodium 138 mmol/L (137-145) 05/26/17 05:29 Potassium 5.4 mmol/L (3.6-5.0) H D 05/26/17 05:29 Chloride 94.7 mmol/L (98-107) L 05/26/17 05:29 Carbon Dioxide 26 mmol/L (22-30) 05/26/17 05:29 Anion Gap 23 mmol/L 05/26/17 05:29 BUN 35 mg/dL (7-17) H 05/26/17 05:29 Creatinine 7.1 mg/dL (0.7-1.2) H 05/26/17 05:29 Estimated GFR 7 ml/min 05/26/17 05:29 BUN/Creatinine Ratio 5 % 05/26/17 05:29 Glucose 181 mg/dL (65-100) H 05/26/17 05:29 POC Glucose 224 (70-105) H 05/26/17 09:33 Hemoglobin A1c 5.7 % (4-6) 05/25/17 07:42 Calcium 8.1 mg/dL (8.4-10.2) L 05/26/17 05:29 Total Bilirubin 0.40 mg/dL (0.1-1.2) 05/26/17 05:29 AST 30 units/L (5-40) 05/26/17 05:29 ALT 13 units/L (7-56) 05/26/17 05:29 Alkaline Phosphatase 183 units/L (35-129) H 05/26/17 05:29 Total Creatine Kinase 65 units/L (30-135) 05/24/17 07:31 CK-MB (CK-2) 3.8 ng/mL (0.0-4.0) 05/24/17 07:31 CK-MB (CK-2) Rel Index 5.8 (0-4) H 05/24/17 07:31 Troponin T 0.106 ng/mL (0.00-0.029) H* 05/24/17 07:31 NT-Pro-B Natriuret Pep > 03018 pg/mL (0-900) H 05/24/17 07:21 Total Protein 6.9 g/dL (6.3-8.2) 05/26/17 05:29 Albumin 4.4 g/dL (3.9-5) 05/26/17 05:29 Albumin/Globulin Ratio 1.8 % 05/26/17 05:29 Triglycerides 86 mg/dL (2-149) 05/24/17 07:31 Cholesterol 112 mg/dL (50-199) 05/24/17 07:31 LDL Cholesterol Direct 32 mg/dL (50-130) L 05/24/17 07:31 HDL Cholesterol 63 mg/dL (40-59) H 05/24/17 07:31 Cholesterol/HDL Ratio 1.77 % 05/24/17 07:31
--- NOTE | 2017-05-26 11:33 | Progress Note ---
Assessment and Plan 1. Non-rheumatic aortic stenosis 2. Coronary artery disease status post PCI LVEF 50-55% 3. End-stage renal disease on hemodialysis 4. Essential hypertension 5. Type 2 diabetes mellitus 6. Presence of cardiac pacemaker. Plan. Cardiac-mims stable conservative management elective PCI and valvular stenosis assessment electively as an outpatient. Subjective Date of service: 05/26/17 Principal diagnosis: Aortic stenosis Interval history: No cardiac symptoms. Objective Vital Signs Temp Pulse Pulse Resp Resp BP Pulse Ox 05/26/17 10:07 84 121/62 05/26/17 05:31 97.8 F 79 18 125/71 100 05/25/17 23:59 98.7 F 18 111/60 05/25/17 22:30 20 05/25/17 21:26 73 12 05/25/17 21:12 100 05/25/17 21:09 76 12 05/25/17 20:24 97.5 F L 77 18 115/56 100 05/25/17 20:22 69 05/25/17 18:32 97.2 F L 73 14 96/55 100 05/25/17 16:30 81 20 05/25/17 16:05 80 20 - Physical Examination General: Appears Well HEENT: Positive: PERRL, Normocephaly, Mucus Membranes Moist Neck: Positive: neck supple, trachea midline. Negative: JVD/HJR Cardiac: Positive: Regular Rate, S1/S2, S4, Systolic Murmur, PMI, Dilated, Laterally Displaced Lungs: Positive: clear to auscultation, No Wheeze, Rales, Rhonchi Neuro: Positive: Grossly Intact Abdomen: Positive: Unremarkable, Soft, Active Bowel Sounds Extremities: Absent: edema - Labs and Meds Cardiac Enzymes 05/26/17 Range/Units 05:29 AST 30 (5-40) units/L CBC 05/26/17 Range/Units 05:29 WBC 4.1 L (4.5-11.0) K/mm3 RBC 3.50 L (3.65-5.03) M/mm3 Hgb 10.8 (10.1-14.3) gm/dl Hct 35.1 (30.3-42.9) % Plt Count 191 (140-440) K/mm3 Comprehensive Metabolic Panel 05/26/17 Range/Units 05:29 Sodium 138 (137-145) mmol/L Potassium 5.4 H D (3.6-5.0) mmol/L Chloride 94.7 L (98-107) mmol/L Carbon Dioxide 26 (22-30) mmol/L BUN 35 H (7-17) mg/dL Creatinine 7.1 H (0.7-1.2) mg/dL Glucose 181 H (65-100) mg/dL Calcium 8.1 L (8.4-10.2) mg/dL AST 30 (5-40) units/L ALT 13 (7-56) units/L Alkaline Phosphatase 183 H (35-129) units/L Total Protein 6.9 (6.3-8.2) g/dL Albumin 4.4 (3.9-5) g/dL
--- NOTE | 2017-05-26 12:19 | Progress Note ---
Assessment and Plan Impression: * ESRD * Acute resp failure * Asthma * Acute Dial CHF * Severe Aortic Stenosis * CAD * HTN Plan: * HD q TTHSAT * strict i/os * uf as tolerated with hd * asthma management per primary team * renal diet * epogen with hd Subjective Date of service: 05/26/17 Principal diagnosis: Aortic stenosis Interval history: resting well in bed today Objective - Exam Narrative Exam: General appearance: Present: no acute distress, well-nourished - EENT Eyes: Present: PERRL, EOM intact ENT: hearing intact, clear oral mucosa, dentition normal - Neck Neck: Present: supple, normal ROM - Respiratory Respiratory effort: normal Respiratory: bilateral: diminished, wheezing - Cardiovascular Rhythm: regular Heart Sounds: Present: S1 & S2. Absent: gallop, rub - Extremities Extremities: no ischemia, No edema, Full ROM - Abdominal General gastrointestinal: soft, non-tender, non-distended, normal bowel sounds - Integumentary Integumentary: Present: clear, warm, dry - Neurologic Neurologic: CNII-XII intact, moves all extremities - Vital Signs Vital signs: Vital Signs - 12hr 05/26/17 05/26/17 05:31 10:07 Temperature 97.8 F Pulse Rate 79 84 Respiratory 18 Rate Blood Pressure 125/71 121/62 O2 Sat by Pulse 100 Oximetry - Lab 05/26/17 05:29 05/26/17 05:29 Most recent lab results Calcium 8.1 mg/dL (8.4-10.2) L 05/26/17 05:29
[2017-05-27] MEDS: DUONEB *Not for PRN Use IH SCH ×4 (02:39→19:44)
[2017-05-27 06:53] LABS: Mean Corpuscular HGB Conc 30 % (30-34); Mean Corpuscular Hemoglobin 30 pg (28-32); Mean Corpuscular Volume 100 fl (79-97); Platelet Count 174 K/mm3 (140-440); Red Blood Count 3.55 M/mm3 (3.65-5.03); Red Cell Distribution Width 19.3 % (13.2-15.2)
[2017-05-27 07:02] LABS: Hematocrit 35.5 % (30.3-42.9); Hemoglobin 10.7 gm/dl (10.1-14.3)
[2017-05-27 07:50] LABS: Band Neutrophils # (Manual) 0.1 K/mm3; Basophils % (Manual) 0 % (0.0-1.8); Monocytes % (Manual) 0 % (0.0-7.3); Total Cells Counted 100
[2017-05-27 07:51] LABS: Anisocytosis 1+; Platelet Estimate Consistent w Auto
[2017-05-27] MEDS: NOVOLOG SUB-Q SCH ×5 (09:55→22:50)
[2017-05-27] MEDS: TOPROL XL PO SCH (10:36)
[2017-05-27] MEDS: PLAVIX PO SCH (10:36)
[2017-05-27] MEDS: PROzac PO SCH (10:36)
[2017-05-27] MEDS: HALFPRIN EC PO SCH (10:36)
[2017-05-27] MEDS: SENSIPAR PO SCH (10:36)
[2017-05-27] MEDS: PROTONIX PO SCH (10:36)
[2017-05-27] MEDS: HEPARIN SUB-Q SCH ×2 (10:37→21:20)
--- NOTE | 2017-05-27 12:26 | Progress Note ---
Assessment and Plan Impression: * ESRD * Acute resp failure * Asthma * Acute Dial CHF * Severe Aortic Stenosis * CAD * HTN Plan: * HD q TTHSAT * strict i/os * uf as tolerated with hd * asthma management per primary team * renal diet * epogen with hd Subjective Date of service: 05/27/17 Principal diagnosis: Aortic stenosis Interval history: resting well in bed today Objective - Exam Narrative Exam: General appearance: Present: no acute distress, well-nourished - EENT Eyes: Present: PERRL, EOM intact ENT: hearing intact, clear oral mucosa, dentition normal - Neck Neck: Present: supple, normal ROM - Respiratory Respiratory effort: normal Respiratory: bilateral: diminished, wheezing - Cardiovascular Rhythm: regular Heart Sounds: Present: S1 & S2. Absent: gallop, rub - Extremities Extremities: no ischemia, No edema, Full ROM - Abdominal General gastrointestinal: soft, non-tender, non-distended, normal bowel sounds - Integumentary Integumentary: Present: clear, warm, dry - Neurologic Neurologic: CNII-XII intact, moves all extremities - Vital Signs Vital signs: Vital Signs - 12hr 05/27/17 05/27/17 05/27/17 05:48 07:46 08:00 Temperature 99.1 F Pulse Rate 69 Pulse Rate [ 71 73 Posterior Bilateral Throughout] Respiratory 18 Rate Respiratory 20 20 Rate [Posterior Bilateral Throughout] Blood Pressure 112/48 [Right] O2 Sat by Pulse 100 100 Oximetry - Lab 05/27/17 06:03 05/27/17 06:03 Most recent lab results Calcium 8.0 mg/dL (8.4-10.2) L 05/27/17 06:03
--- NOTE | 2017-05-27 12:51 | Progress Note ---
Assessment and Plan Assessment and plan: Acute hypoxic respiratory failure. Etiology secondary to asthma exacerbation and volume overload. Continue O2 for supportive care. BiPAP as clinically indicated. Acute asthma exacerbation. Continue breathing treatments, continued IV steroids , and O2. Acute diastolic CHF exacerbation. Continue hemodialysis for volume control. Cardiology follow. Well-preserved left ventricle systolic function, EF 55% on echocardiogram 04/2016. However patient with moderate concentric LVH. Severe aortic stenosis. Cardiology recommended previous evaluation as an outpatient by CT surgery. Echocardiogram to evaluate severity of aortic stenosis. Multivessel coronary artery disease. She has multiple lesions in the proximal and mid right coronary artery, ultimately lesions in the circumflex and obtuse marginal vessels, and a proximal diagonal branch of the LAD. Cardiology potentially considering PCI to left circumflex lesions. Hypertension. Continue antihypertensives medications. ESRD. Continue hemodialysis per nephrology. History Interval history: Patient complains of dyspnea with exertion. No new issues overnight Hospitalist Physical - Constitutional Vitals: Temp Pulse Resp BP Pulse Ox 99.1 F 73 20 112/48 100 05/27/17 05:48 05/27/17 08:00 05/27/17 08:00 05/27/17 05:48 05/27/17 07:46 General appearance: Present: no acute distress - EENT Eyes: Present: PERRL, EOM intact ENT: hearing intact, clear oral mucosa, dentition normal - Neck Neck: Present: supple, normal ROM - Respiratory Respiratory effort: normal Respiratory: bilateral: CTA - Cardiovascular Rhythm: regular Heart Sounds: Present: S1 & S2. Absent: gallop, rub - Extremities Extremities: no ischemia, No edema, Full ROM - Abdominal General gastrointestinal: soft, non-tender, non-distended, normal bowel sounds - Integumentary Integumentary: Present: clear, warm, dry - Neurologic Neurologic: CNII-XII intact, moves all extremities Results - Labs CBC & Chem 7: 05/27/17 06:03 05/27/17 06:03 Labs: Laboratory Last Values WBC 4.9 K/mm3 (4.5-11.0) 05/27/17 06:03 RBC 3.55 M/mm3 (3.65-5.03) L 05/27/17 06:03 Hgb 10.7 gm/dl (10.1-14.3) 05/27/17 06:03 Hct 35.5 % (30.3-42.9) 05/27/17 06:03 MCV 100 fl (79-97) H 05/27/17 06:03 MCH 30 pg (28-32) 05/27/17 06:03 MCHC 30 % (30-34) 05/27/17 06:03 RDW 19.3 % (13.2-15.2) H 05/27/17 06:03 Plt Count 174 K/mm3 (140-440) 05/27/17 06:03 Lymph % (Auto) 9.4 % (13.4-35.0) L 05/24/17 07:31 [place] % (Auto) 6.8 % (0.0-7.3) 05/24/17 07:31 Eos % (Auto) 9.6 % (0.0-4.3) H 05/24/17 07:31 Baso % (Auto) 1.3 % (0.0-1.8) 05/24/17 07:31 Lymph # 0.4 K/mm3 (1.2-5.4) L 05/24/17 07:31 [place] # 0.3 K/mm3 (0.0-0.8) 05/24/17 07:31 Eos # 0.4 K/mm3 (0.0-0.4) 05/24/17 07:31 Baso # 0.1 K/mm3 (0.0-0.1) 05/24/17 07:31 Add Manual Diff Complete 05/27/17 06:03 Total Counted 100 05/27/17 06:03 Seg Neutrophils % Vocal Music Teacher 05/27/17 06:03 Seg Neuts % (Manual) 89.0 % (40.0-70.0) H 05/27/17 06:03 Band Neutrophils % 3.0 % 05/27/17 06:03 Lymphocytes % (Manual) 7.0 % (13.4-35.0) L 05/27/17 06:03 Reactive Lymphs % (Man) 0 % 05/27/17 06:03 Monocytes % (Manual) 0 % (0.0-7.3) 05/27/17 06:03 Eosinophils % (Manual) 1.0 % (0.0-4.3) 05/27/17 06:03 Basophils % (Manual) 0 % (0.0-1.8) 05/27/17 06:03 Metamyelocytes % 0 % 05/27/17 06:03 Myelocytes % 0 % 05/27/17 06:03 Promyelocytes % 0 % 05/27/17 06:03 Blast Cells % 0 % 05/27/17 06:03 Nucleated RBC % Not Reportable 05/27/17 06:03 Seg Neutrophils # 3.2 K/mm3 (1.8-7.7) 05/24/17 07:31 Seg Neutrophils # Man 4.4 K/mm3 (1.8-7.7) 05/27/17 06:03 Band Neutrophils # 0.1 K/mm3 05/27/17 06:03 Lymphocytes # (Manual) 0.3 K/mm3 (1.2-5.4) L 05/27/17 06:03 Abs React Lymphs (Man) 0.0 K/mm3 05/27/17 06:03 Monocytes # (Manual) 0.0 K/mm3 (0.0-0.8) 05/27/17 06:03 Eosinophils # (Manual) 0.0 K/mm3 (0.0-0.4) 05/27/17 06:03 Basophils # (Manual) 0.0 K/mm3 (0.0-0.1) 05/27/17 06:03 Metamyelocytes # 0.0 K/mm3 05/27/17 06:03 Myelocytes # 0.0 K/mm3 05/27/17 06:03 Promyelocytes # 0.0 K/mm3 05/27/17 06:03 Blast Cells # 0.0 K/mm3 05/27/17 06:03 WBC Morphology Not Reportable 05/27/17 06:03 Hypersegmented Neuts Not Reportable 05/27/17 06:03 Hyposegmented Neuts Not Reportable 05/27/17 06:03 Hypogranular Neuts Not Reportable 05/27/17 06:03 Smudge Cells Not Reportable 05/27/17 06:03 Toxic Granulation Not Reportable 05/27/17 06:03 Toxic Vacuolation Not Reportable 05/27/17 06:03 Dohle Bodies Not Reportable 05/27/17 06:03 Pelger-Huet Anomaly Not Reportable 05/27/17 06:03 Tod Rods Not Reportable 05/27/17 06:03 Platelet Estimate Consistent w auto 05/27/17 06:03 Clumped Platelets Not Reportable 05/27/17 06:03 Plt Clumps, EDTA Not Reportable 05/27/17 06:03 Large Platelets Not Reportable 05/27/17 06:03 Giant Platelets Not Reportable 05/27/17 06:03 Platelet Satelliting Not Reportable 05/27/17 06:03 Plt Morphology Comment Not Reportable 05/27/17 06:03 RBC Morphology Not Reportable 05/27/17 06:03 Dimorphic RBCs Not Reportable 05/27/17 06:03 Polychromasia Not Reportable 05/27/17 06:03 Hypochromasia Not Reportable 05/27/17 06:03 Poikilocytosis Not Reportable 05/27/17 06:03 Anisocytosis 1+ 05/27/17 06:03 Microcytosis Not Reportable 05/27/17 06:03 Macrocytosis Not Reportable 05/27/17 06:03 Spherocytes Not Reportable 05/27/17 06:03 Pappenheimer Bodies Not Reportable 05/27/17 06:03 Sickle Cells Not Reportable 05/27/17 06:03 Target Cells Not Reportable 05/27/17 06:03 Tear Drop Cells Not Reportable 05/27/17 06:03 Ovalocytes Not Reportable 05/27/17 06:03 Helmet Cells Not Reportable 05/27/17 06:[address] [place] Bodies Not Reportable 05/27/17 06:03 [place] Rings Not Reportable 05/27/17 06:03 [place] Cells Not Reportable 05/27/17 06:03 Bite Cells Not Reportable 05/27/17 06:03 Crenated Cell Not Reportable 05/27/17 06:03 Elliptocytes 1+ 05/27/17 06:03 Acanthocytes (Spur) Not Reportable 05/27/17 06:03 Rouleaux Not Reportable 05/27/17 06:03 Hemoglobin C Crystals Not Reportable 05/27/17 06:03 Schistocytes Not Reportable 05/27/17 06:03 Malaria parasites Not Reportable 05/27/17 06:03 Hector Bodies Not Reportable 05/27/17 06:03 Hem Pathologist Commnt No 05/27/17 06:03 PT 17.9 Sec. (12.2-14.9) H 05/24/17 07:31 INR 1.40 (0.87-1.13) H 05/24/17 07:31 APTT 35.6 Sec. (24.2-36.6) 05/24/17 07:31 Sodium 139 mmol/L (137-145) 05/27/17 06:03 Potassium 4.1 mmol/L (3.6-5.0) D 05/27/17 06:03 Chloride 92.5 mmol/L (98-107) L 05/27/17 06:03 Carbon Dioxide 26 mmol/L (22-30) 05/27/17 06:03 Anion Gap 25 mmol/L 05/27/17 06:03 BUN 19 mg/dL (7-17) H 05/27/17 06:03 Creatinine 4.7 mg/dL (0.7-1.2) H 05/27/17 06:03 Estimated GFR 11 ml/min 05/27/17 06:03 BUN/Creatinine Ratio 4 % 05/27/17 06:03 Glucose 147 mg/dL (65-100) H 05/27/17 06:03 POC Glucose 201 (70-105) H 05/26/17 21:57 Hemoglobin A1c 5.7 % (4-6) 05/25/17 07:42 Calcium 8.0 mg/dL (8.4-10.2) L 05/27/17 06:03 Total Bilirubin 0.40 mg/dL (0.1-1.2) 05/26/17 05:29 AST 30 units/L (5-40) 05/26/17 05:29 ALT 13 units/L (7-56) 05/26/17 05:29 Alkaline Phosphatase 183 units/L (35-129) H 05/26/17 05:29 Total Creatine Kinase 65 units/L (30-135) 05/24/17 07:31 CK-MB (CK-2) 3.8 ng/mL (0.0-4.0) 05/24/17 07:31 CK-MB (CK-2) Rel Index 5.8 (0-4) H 05/24/17 07:31 Troponin T 0.106 ng/mL (0.00-0.029) H* 05/24/17 07:31 NT-Pro-B Natriuret Pep > 25633 pg/mL (0-900) H 05/24/17 07:21 Total Protein 6.9 g/dL (6.3-8.2) 05/26/17 05:29 Albumin 4.4 g/dL (3.9-5) 05/26/17 05:29 Albumin/Globulin Ratio 1.8 % 05/26/17 05:29 Triglycerides 86 mg/dL (2-149) 05/24/17 07:31 Cholesterol 112 mg/dL (50-199) 05/24/17 07:31 LDL Cholesterol Direct 32 mg/dL (50-130) L 05/24/17 07:31 HDL Cholesterol 63 mg/dL (40-59) H 05/24/17 07:31 Cholesterol/HDL Ratio 1.77 % 05/24/17 07:31
--- NOTE | 2017-05-27 15:49 | Progress Note ---
Assessment and Plan 1. Non-rheumatic aortic stenosis 2. Coronary artery disease status post PCI LVEF 50-55% 3. End-stage renal disease on hemodialysis 4. Essential hypertension 5. Type 2 diabetes mellitus 6. Presence of cardiac pacemaker. Plan. Cardiac-mims stable conservative management elective PCI and valvular stenosis assessment electively as an outpatient. Subjective Date of service: 05/27/17 Principal diagnosis: Aortic stenosis Interval history: No cardiac symptoms. short of breath at rest Objective Vital Signs Temp Pulse Pulse Pulse Resp Resp Resp 05/27/17 15:15 82 20 05/27/17 15:00 80 20 05/27/17 10:00 70 05/27/17 08:00 73 20 05/27/17 07:46 71 20 05/27/17 07:42 97.9 F 70 18 05/27/17 05:48 99.1 F 69 18 05/26/17 22:00 20 05/26/17 21:47 05/26/17 21:03 81 05/26/17 20:32 98.4 F 67 18 05/26/17 20:08 65 18 05/26/17 19:53 63 18 05/26/17 17:32 97.9 F 22 05/26/17 16:45 98.0 F 84 18 05/26/17 16:30 84 05/26/17 16:15 86 05/26/17 16:00 88 BP BP Pulse Ox 05/27/17 15:15 05/27/17 15:00 05/27/17 10:00 05/27/17 08:00 05/27/17 07:46 100 05/27/17 07:42 128/62 98 05/27/17 05:48 112/48 100 05/26/17 22:00 05/26/17 21:47 100 05/26/17 21:03 05/26/17 20:32 103/48 94 05/26/17 20:08 05/26/17 19:53 05/26/17 17:32 105/58 05/26/17 16:45 120/60 05/26/17 16:30 114/58 05/26/17 16:15 110/56 05/26/17 16:00 115/58 - Physical Examination General: Appears Well HEENT: Positive: PERRL, Normocephaly, Mucus Membranes Moist Neck: Positive: neck supple, trachea midline. Negative: JVD/HJR Cardiac: Positive: Regular Rate, S1/S2, Systolic Murmur, Dilated, Laterally Displaced Lungs: Positive: clear to auscultation, No Wheeze, Rales, Rhonchi Neuro: Positive: Grossly Intact Abdomen: Positive: Unremarkable, Soft, Active Bowel Sounds Extremities: Absent: edema - Labs and Meds CBC 05/27/17 Range/Units 06:03 WBC 4.9 (4.5-11.0) K/mm3 RBC 3.55 L (3.65-5.03) M/mm3 Hgb 10.7 (10.1-14.3) gm/dl Hct 35.5 (30.3-42.9) % Plt Count 174 (140-440) K/mm3 Comprehensive Metabolic Panel 05/27/17 Range/Units 06:03 Sodium 139 (137-145) mmol/L Potassium 4.1 D (3.6-5.0) mmol/L Chloride 92.5 L (98-107) mmol/L Carbon Dioxide 26 (22-30) mmol/L BUN 19 H (7-17) mg/dL Creatinine 4.7 H (0.7-1.2) mg/dL Glucose 147 H (65-100) mg/dL Calcium 8.0 L (8.4-10.2) mg/dL - Telemetry EKG Rhythm: Sinus Rhythm
[2017-05-28 07:43] LABS: Hematocrit 34.6 % (30.3-42.9); Hemoglobin 11.2 gm/dl (10.1-14.3); Mean Corpuscular HGB Conc 32 % (30-34); Mean Corpuscular Hemoglobin 32 pg (28-32); Mean Corpuscular Volume 97 fl (79-97); Platelet Count 182 K/mm3 (140-440); Red Blood Count 3.55 M/mm3 (3.65-5.03); Red Cell Distribution Width 19.1 % (13.2-15.2)
[2017-05-28 07:47] LABS: Calcium 8.1 mg/dL (8.4-10.2)
[2017-05-28] MEDS: NOVOLOG SUB-Q SCH ×4 (08:46→23:10)
[2017-05-28] MEDS: DUONEB *Not for PRN Use IH SCH ×3 (09:04→20:46)
--- NOTE | 2017-05-28 09:24 | Progress Note ---
Assessment and Plan Impression: * ESRD * Acute resp failure * Asthma * Acute Dial CHF * Severe Aortic Stenosis * CAD * HTN Plan: * HD q TTHSAT * strict i/os * uf as tolerated with hd * asthma management per primary team * renal diet * epogen with hd Subjective Date of service: 05/28/17 Principal diagnosis: Aortic stenosis Interval history: resting well in bed today Objective - Exam Narrative Exam: General appearance: Present: no acute distress, well-nourished - EENT Eyes: Present: PERRL, EOM intact ENT: hearing intact, clear oral mucosa, dentition normal - Neck Neck: Present: supple, normal ROM - Respiratory Respiratory effort: normal Respiratory: bilateral: diminished, wheezing - Cardiovascular Rhythm: regular Heart Sounds: Present: S1 & S2. Absent: gallop, rub - Extremities Extremities: no ischemia, No edema, Full ROM - Abdominal General gastrointestinal: soft, non-tender, non-distended, normal bowel sounds - Integumentary Integumentary: Present: clear, warm, dry - Neurologic Neurologic: CNII-XII intact, moves all extremities - Vital Signs Vital signs: Vital Signs - 12hr 05/27/17 05/28/17 05/28/17 22:00 01:10 01:12 Temperature 97.0 F L Pulse Rate 100 H Pulse Rate [ Anterior Bilateral Throughout] Pulse Rate [ 82 Right Radial] Respiratory 20 18 Rate Respiratory Rate [Anterior Bilateral Throughout] Blood Pressure 117/57 [Right] O2 Sat by Pulse 100 98 Oximetry 05/28/17 05/28/17 05/28/17 05:46 09:02 09:04 Temperature 98 F Pulse Rate 76 Pulse Rate [ 85 Anterior Bilateral Throughout] Pulse Rate [ Right Radial] Respiratory 18 Rate Respiratory 18 Rate [Anterior Bilateral Throughout] Blood Pressure 121/76 [Right] O2 Sat by Pulse 98 99 Oximetry 05/28/17 09:13 Temperature Pulse Rate Pulse Rate [ 83 Anterior Bilateral Throughout] Pulse Rate [ Right Radial] Respiratory Rate Respiratory 18 Rate [Anterior Bilateral Throughout] Blood Pressure [Right] O2 Sat by Pulse Oximetry - Lab 05/28/17 06:37 05/28/17 06:37 Most recent lab results Calcium 8.1 mg/dL (8.4-10.2) L 05/28/17 06:37
[2017-05-28 09:32] LABS: Acanthocytes Few; Anisocytosis 1+; Basophils % (Manual) 0 % (0.0-1.8); Burr Cells Few; Eosinophils % (Manual) 0 % (0.0-4.3); Ovalocytes 1+; Poikilocytosis 1+; Tear Drop Cells 1+; Total Cells Counted 100
[2017-05-28] MEDS: PLAVIX PO SCH (09:51)
[2017-05-28] MEDS: PROTONIX PO SCH (09:51)
[2017-05-28] MEDS: PROzac PO SCH (09:51)
[2017-05-28] MEDS: HALFPRIN EC PO SCH (09:51)
[2017-05-28] MEDS: SENSIPAR PO SCH (09:51)
[2017-05-28] MEDS: TOPROL XL PO SCH (09:51)
--- NOTE | 2017-05-28 11:41 | Progress Note ---
Assessment and Plan Volume overload ESRD on HD Coronary artery disease s/p PCI of distal RCA 11/2016; on plavix and aspirin. Aortic stenosis, moderate EF 55% on echo 11/2016 Hypertension Chronic elevated troponin likely secondary to renal disease. patient denies chest pain. Recommend: Obtain cardiac records from [place]. Continue medical management for coronary disease and valvular heart disease. Dialysis for fluid removal. Subjective Date of service: 05/28/17 Principal diagnosis: Aortic stenosis Interval history: Patient has no complaints. Objective Vital Signs Temp Pulse Pulse Pulse Resp Resp BP 05/28/17 09:25 98.2 F 80 18 05/28/17 09:13 83 18 05/28/17 09:04 85 18 05/28/17 09:02 05/28/17 05:46 98 F 76 18 05/28/17 01:12 05/28/17 01:10 97.0 F L 100 H 18 05/27/17 22:00 82 20 05/27/17 20:23 98.2 F 82 20 05/27/17 20:00 85 18 05/27/17 19:46 05/27/17 19:44 83 18 05/27/17 17:52 98.2 F 76 20 123/53 05/27/17 15:15 82 20 05/27/17 15:00 80 20 BP Pulse Ox 05/28/17 09:25 101/53 99 05/28/17 09:13 05/28/17 09:04 05/28/17 09:02 99 05/28/17 05:46 121/76 98 05/28/17 01:12 98 05/28/17 01:10 117/57 100 05/27/17 22:00 05/27/17 20:23 117/63 97 05/27/17 20:00 05/27/17 19:46 98 05/27/17 19:44 05/27/17 17:52 99 05/27/17 15:15 05/27/17 15:00 - Physical Examination General: Appears Well HEENT: Positive: PERRL Neck: Positive: trachea midline Cardiac: Positive: Reg Rate and Rhythm Lungs: Positive: Decreased Breath Sounds Neuro: Positive: Grossly Intact Extremities: Absent: edema - Labs and Meds CBC 05/28/17 Range/Units 06:37 WBC 5.7 (4.5-11.0) K/mm3 RBC 3.55 L (3.65-5.03) M/mm3 Hgb 11.2 (10.1-14.3) gm/dl Hct 34.6 (30.3-42.9) % Plt Count 182 (140-440) K/mm3 Lymph # [employer] Instructor [place] # [employer] Communications Instructor Eos # [employer] Communications Instructor Baso # Mass Communications Instructor Comprehensive Metabolic Panel 05/28/17 Range/Units 06:37 Sodium 134 L (137-145) mmol/L Potassium 4.4 (3.6-5.0) mmol/L Chloride 86.5 L (98-107) mmol/L Carbon Dioxide 24 (22-30) mmol/L BUN 42 H (7-17) mg/dL Creatinine 6.6 H (0.7-1.2) mg/dL Glucose 187 H (65-100) mg/dL Calcium 8.1 L (8.4-10.2) mg/dL
[2017-05-28] MEDS: HEPARIN SUB-Q SCH ×2 (11:45→23:10)
[2017-05-29 07:56] LABS: Hematocrit 33.9 % (30.3-42.9); Mean Corpuscular HGB Conc 32 % (30-34); Mean Corpuscular Hemoglobin 31 pg (28-32); Mean Corpuscular Volume 97 fl (79-97); Platelet Count 203 K/mm3 (140-440); Red Blood Count 3.49 M/mm3 (3.65-5.03); Red Cell Distribution Width 18.3 % (13.2-15.2)
[2017-05-29 08:10] LABS: Calcium 8.1 mg/dL (8.4-10.2)
[2017-05-29] MEDS: NOVOLOG SUB-Q SCH ×4 (08:25→22:31)
[2017-05-29] MEDS: DUONEB *Not for PRN Use IH SCH ×3 (08:39→20:24)
--- NOTE | 2017-05-29 09:30 | Progress Note ---
Assessment and Plan Impression: * ESRD * Acute resp failure * Asthma * Acute Dial CHF * Severe Aortic Stenosis * CAD * HTN Plan: * HD q TTHSAT * strict i/os * uf as tolerated with hd * asthma management per primary team * renal diet * epogen with hd * cards plans noted, ?transfer to [place] Subjective Date of service: 05/29/17 Principal diagnosis: Aortic stenosis Interval history: resting well in bed today Objective - Exam Narrative Exam: General appearance: Present: no acute distress, well-nourished - EENT Eyes: Present: PERRL, EOM intact ENT: hearing intact, clear oral mucosa, dentition normal - Neck Neck: Present: supple, normal ROM - Respiratory Respiratory effort: normal Respiratory: bilateral: diminished, wheezing - Cardiovascular Rhythm: regular Heart Sounds: Present: S1 & S2. Absent: gallop, rub - Extremities Extremities: no ischemia, No edema, Full ROM - Abdominal General gastrointestinal: soft, non-tender, non-distended, normal bowel sounds - Integumentary Integumentary: Present: clear, warm, dry - Neurologic Neurologic: CNII-XII intact, moves all extremities - Vital Signs Vital signs: Vital Signs - 12hr 05/28/17 05/29/17 05/29/17 22:00 01:00 04:59 Temperature 98.2 F 97.8 F Pulse Rate 86 69 80 Pulse Rate [ Anterior Bilateral Throughout] Pulse Rate [ Posterior Bilateral Throughout] Respiratory 18 20 Rate Respiratory Rate [Anterior Bilateral Throughout] Respiratory Rate [Posterior Bilateral Throughout] Blood Pressure 101/52 118/63 Blood Pressure [Right] O2 Sat by Pulse 100 98 Oximetry 05/29/17 05/29/17 05/29/17 05:00 08:00 08:37 Temperature Pulse Rate 79 80 Pulse Rate [ 78 Anterior Bilateral Throughout] Pulse Rate [ 80 Posterior Bilateral Throughout] Respiratory Rate Respiratory 18 Rate [Anterior Bilateral Throughout] Respiratory 16 Rate [Posterior Bilateral Throughout] Blood Pressure Blood Pressure [Right] O2 Sat by Pulse 97 Oximetry 05/29/17 05/29/17 08:44 09:26 Temperature 98.0 F Pulse Rate 70 Pulse Rate [ Anterior Bilateral Throughout] Pulse Rate [ Posterior Bilateral Throughout] Respiratory 20 Rate Respiratory Rate [Anterior Bilateral Throughout] Respiratory Rate [Posterior Bilateral Throughout] Blood Pressure Blood Pressure 134/75 [Right] O2 Sat by Pulse 100 95 Oximetry - Lab 05/29/17 06:16 05/29/17 06:16 Most recent lab results Calcium 8.1 mg/dL (8.4-10.2) L 05/29/17 06:16
--- NOTE | 2017-05-29 09:57 | Progress Note ---
Assessment and Plan Volume overload ESRD on HD Coronary artery disease s/p PCI of distal RCA 11/2016; on plavix and aspirin. Patient has documented severe disease of the circumflex and awaits stage intervention. Aortic stenosis, moderate EF 55% on echo 11/2016. Hypertension Chronic elevated troponin likely secondary to renal disease. patient denies chest pain. Recommend: Continue medical management for coronary disease and valvular heart disease. Dialysis for fluid removal. Awaiting records of previous coronary interventions done at [facility]. We will identify her primary clinical rehabilitation specialist, and plan eventual transfer to [place] for further management of her coronary disease and valvular disease. Subjective Date of service: 05/29/17 Principal diagnosis: Aortic stenosis Interval history: Patient has no complaints. Objective Vital Signs Temp Pulse Pulse Pulse Pulse Resp Resp 05/29/17 09:26 98.0 F 70 20 05/29/17 08:44 05/29/17 08:37 80 05/29/17 08:00 78 80 18 05/29/17 05:00 79 05/29/17 04:59 97.8 F 80 20 05/29/17 01:00 98.2 F 69 18 05/28/17 22:00 86 05/28/17 20:58 80 15 05/28/17 20:49 05/28/17 20:47 82 12 05/28/17 20:24 73 05/28/17 20:23 98.0 F 18 05/28/17 17:10 98.4 F 72 18 05/28/17 14:21 68 16 05/28/17 14:10 71 16 05/28/17 13:05 98.3 F 69 18 05/28/17 11:33 98.3 F 69 20 05/28/17 10:00 80 80 18 Resp BP BP Pulse Ox 05/29/17 09:26 134/75 95 05/29/17 08:44 100 05/29/17 08:37 05/29/17 08:00 16 05/29/17 05:00 97 05/29/17 04:59 118/63 98 05/29/17 01:00 101/52 100 05/28/17 22:00 05/28/17 20:58 05/28/17 20:49 98 05/28/17 20:47 05/28/17 20:24 99 02/12/18 20:23 110/55 02//18 17:10 118/60 05/28/17 14:21 05/28/17 14:10 05/28/17 13:05 112/59 05/28/17 11:33 112/59 100 05/28/17 10:00 99 - Physical Examination General: No Apparent Distress HEENT: Positive: PERRL Neck: Positive: trachea midline Cardiac: Positive: Reg Rate and Rhythm Neuro: Positive: Grossly Intact - Labs and Meds CBC 05/29/17 Range/Units 06:16 WBC 5.9 (4.5-11.0) K/mm3 RBC 3.49 L (3.65-5.03) M/mm3 Hgb 11.0 (10.1-14.3) gm/dl Hct 33.9 (30.3-42.9) % Plt Count 203 (140-440) K/mm3 Comprehensive Metabolic Panel 05/29/17 Range/Units 06:16 Sodium 134 L (137-145) mmol/L Potassium 4.7 (3.6-5.0) mmol/L Chloride 88.2 L (98-107) mmol/L Carbon Dioxide 22 (22-30) mmol/L BUN 59 H (7-17) mg/dL Creatinine 7.9 H (0.7-1.2) mg/dL Glucose 202 H (65-100) mg/dL Calcium 8.1 L (8.4-10.2) mg/dL
[2017-05-29] MEDS: HEPARIN SUB-Q SCH ×2 (10:28→22:31)
[2017-05-29 11:00] LABS: Total Cells Counted 100
[2017-05-29 11:01] LABS: Anisocytosis 1+; Band Neutrophils # (Manual) 0.3 K/mm3; Basophils % (Manual) 0 % (0.0-1.8); Eosinophils % (Manual) 0 % (0.0-4.3); Poikilocytosis 1+
[2017-05-29 11:53] LABS: Eosinophils % (Auto) 0.1 % (0.0-4.3); Monocytes # (Auto) 0.2 K/mm3 (0.0-0.8); Monocytes % (Auto) 2.9 % (0.0-7.3)
[2017-05-29] MEDS ORDERED: NACL 0.9 (PRIMING MACHINE ONLY DIALYSIS) MC ONE (12:52)
[2017-05-29] MEDS: PLAVIX PO SCH (14:54)
[2017-05-29] MEDS: HALFPRIN EC PO SCH (14:54)
[2017-05-29] MEDS: PROTONIX PO SCH (14:55)
[2017-05-29] MEDS: SENSIPAR PO SCH (14:55)
[2017-05-29] MEDS: PROzac PO SCH (14:55)
[2017-05-29] MEDS: TOPROL XL PO SCH (14:56)
--- NOTE | 2017-05-29 18:15 | Discharge Summary ---
Providers - Providers Date of Admission: 05/24/17 12:22 Attending physician: DALY ATKINSON MD 05/24/17 17:32 Consult to Physician [CONS] Routine Consulting Provider: NNAMDI GARCIA Reason For Exam: Esrd Place consult to:: Dr. Garcia Notified:: yes Phone number called:: [phone] Was contact made?: Yes If yes, spoke with:: Dr. Garcia Time called:: 16:48 05/25/17 Consult to Case Management [CONS] Routine Services Needed at Discharge: Home Health Services Notified:: complex case manager 05/25/17 11:10 Consult to Physician [CONS] Routine Consulting Provider: AIDEN AGUILAR Reason For Exam: , diastolic HF Place consult to:: DR AGUILAR Notified:: DR AGUILAR Primary care physician: CARMELA VILLASEÑOR Hospitalization Reason for admission: CAD, CHF Condition: Stable Disposition: DC-01 TO HOME OR SELFCARE Time spent for discharge: 31 minutes Core Measure Documentation - Palliative Care Palliative Care/ Comfort Measures: Not Applicable - Core Measures Any of the following diagnoses?: heart failure - Heart Failure Discharge Requirements LUIS/ARB for LVSD if EF <40%: Yes Beta garrett at discharge: Yes Exam - Physical Exam Narrative exam: Not in cardiopulmonary distress. The patient appeared well nourished and normally developed. Vital signs as documented. Head exam is unremarkable. No scleral icterus . Neck is without jugular venous distension, thyromegaly, or carotid bruits. Lungs are clear to auscultation. Cardiac exam reveals regular rate and Rhythm. First and second heart sounds normal. No murmurs, rubs or gallops. Abdominal exam reveals normal bowel sounds, no masses, no organomegaly and no aortic enlargement. Extremities are nonedematous and both femoral and pedal pulses are normal. 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 No focal weakness. - Constitutional Vitals: Temp Pulse Resp BP Pulse Ox 97.8 F 68 20 147/57 100 05/29/17 16:46 05/29/17 16:46 05/29/17 16:46 05/29/17 16:46 05/29/17 16:46 Plan Activity: no restrictions Weight Bearing Status: Full Weight Bearing Follow up with: PRIMARY CAREMD [Referring] - 3-5 Days
--- NOTE | 2017-05-29 18:16 | Progress Note ---
Assessment and Plan Assessment and plan: Acute hypoxic respiratory failure. Etiology secondary to asthma exacerbation and volume overload. Continue O2 for supportive care. BiPAP as clinically indicated. Acute asthma exacerbation. Continue breathing treatments, continued IV steroids , and O2. Acute diastolic CHF exacerbation. Continue hemodialysis for volume control. Cardiology follow. Well-preserved left ventricle systolic function, EF 55% on echocardiogram 04/2016. However patient with moderate concentric LVH. Severe aortic stenosis. Cardiology recommended previous evaluation as an outpatient by CT surgery. Echocardiogram to evaluate severity of aortic stenosis. Multivessel coronary artery disease. She has multiple lesions in the proximal and mid right coronary artery, ultimately lesions in the circumflex and obtuse marginal vessels, and a proximal diagonal branch of the LAD. Cardiology potentially considering PCI to left circumflex lesions. Hypertension. Continue antihypertensives medications. ESRD. Continue hemodialysis per nephrology. History Interval history: Patient was seen and evaluated this morning, patient was breathing okay, she wants to go home. Hospitalist Physical - Physical exam Narrative exam: Not in cardiopulmonary distress. The patient appeared well nourished and normally developed. Vital signs as documented. Head exam is unremarkable. No scleral icterus . Neck is without jugular venous distension, thyromegaly, or carotid bruits. Lungs are clear to auscultation. Cardiac exam reveals regular rate and Rhythm. First and second heart sounds normal. No murmurs, rubs or gallops. Abdominal exam reveals normal bowel sounds, no masses, no organomegaly and no aortic enlargement. Extremities are nonedematous and both femoral and pedal pulses are normal. 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 No focal weakness. - Constitutional Vitals: Temp Pulse Resp BP Pulse Ox 97.8 F 68 20 147/57 100 05/29/17 16:46 05/29/17 16:46 05/29/17 16:46 05/29/17 16:46 05/29/17 16:46 General appearance: Present: no acute distress Results - Labs CBC & Chem 7: 05/29/17 06:16 05/29/17 06:16 Labs: Laboratory Last Values WBC 5.9 K/mm3 (4.5-11.0) 05/29/17 06:16 RBC 3.49 M/mm3 (3.65-5.03) L 05/29/17 06:16 Hgb 11.0 gm/dl (10.1-14.3) 05/29/17 06:16 Hct 33.9 % (30.3-42.9) 05/29/17 06:16 MCV 97 fl (79-97) 05/29/17 06:16 MCH 31 pg (28-32) 05/29/17 06:16 MCHC 32 % (30-34) 05/29/17 06:16 RDW 18.3 % (13.2-15.2) H 05/29/17 06:16 Plt Count 203 K/mm3 (140-440) 05/29/17 06:16 Lymph % (Auto) School Bus Aide 05/28/17 06:37 Graves % (Auto) 2.9 % (0.0-7.3) 05/29/17 06:16 Eos % (Auto) 0.1 % (0.0-4.3) 05/29/17 06:16 Baso % (Auto) School Bus Aide 05/28/17 06:37 Lymph # School Bus Aide 05/28/17 06:37 Graves # 0.2 K/mm3 (0.0-0.8) 05/29/17 06:16 Eos # 0.0 K/mm3 (0.0-0.4) 05/29/17 06:16 Baso # 0.0 K/mm3 (0.0-0.1) 05/29/17 06:16 Add Manual Diff Complete 05/29/17 06:16 Total Counted 100 05/29/17 06:16 Seg Neutrophils % School Bus Aide 05/29/17 06:16 Seg Neuts % (Manual) 87.0 % (40.0-70.0) H 05/29/17 06:16 Band Neutrophils % 5.0 % 05/29/17 06:16 Lymphocytes % (Manual) 6.0 % (13.4-35.0) L 05/29/17 06:16 Reactive Lymphs % (Man) 0 % 05/29/17 06:16 Monocytes % (Manual) 2.0 % (0.0-7.3) 05/29/17 06:16 Eosinophils % (Manual) 0 % (0.0-4.3) 05/29/17 06:16 Basophils % (Manual) 0 % (0.0-1.8) 05/29/17 06:16 Metamyelocytes % 0 % 05/29/17 06:16 Myelocytes % 0 % 05/29/17 06:16 Promyelocytes % 0 % 05/29/17 06:16 Blast Cells % 0 % 05/29/17 06:16 Nucleated RBC % Not Reportable 05/29/17 06:16 Seg Neutrophils # 5.5 K/mm3 (1.8-7.7) 05/29/17 06:16 Seg Neutrophils # Man 5.1 K/mm3 (1.8-7.7) 05/29/17 06:16 Band Neutrophils # 0.3 K/mm3 05/29/17 06:16 Lymphocytes # (Manual) 0.4 K/mm3 (1.2-5.4) L 05/29/17 06:16 Abs React Lymphs (Man) 0.0 K/mm3 05/29/17 06:16 Monocytes # (Manual) 0.1 K/mm3 (0.0-0.8) 05/29/17 06:16 Eosinophils # (Manual) 0.0 K/mm3 (0.0-0.4) 05/29/17 06:16 Basophils # (Manual) 0.0 K/mm3 (0.0-0.1) 05/29/17 06:16 Metamyelocytes # 0.0 K/mm3 05/29/17 06:16 Myelocytes # 0.0 K/mm3 05/29/17 06:16 Promyelocytes # 0.0 K/mm3 05/29/17 06:16 Blast Cells # 0.0 K/mm3 05/29/17 06:16 WBC Morphology Not Reportable 05/29/17 06:16 Hypersegmented Neuts Not Reportable 05/29/17 06:16 Hyposegmented Neuts Not Reportable 05/29/17 06:16 Hypogranular Neuts Not Reportable 05/29/17 06:16 Smudge Cells Not Reportable 05/29/17 06:16 Toxic Granulation Not Reportable 05/29/17 06:16 Toxic Vacuolation Not Reportable 05/29/17 06:16 Dohle Bodies Not Reportable 05/29/17 06:16 Pelger-Huet Anomaly Not Reportable 05/29/17 06:16 Tod Rods Not Reportable 05/29/17 06:16 Platelet Estimate Not Reportable 05/29/17 06:16 Clumped Platelets Not Reportable 05/29/17 06:16 Plt Clumps, EDTA Not Reportable 05/29/17 06:16 Large Platelets Not Reportable 05/29/17 06:16 Giant Platelets Not Reportable 05/29/17 06:16 Platelet Satelliting Not Reportable 05/29/17 06:16 Plt Morphology Comment Not Reportable 05/29/17 06:16 RBC Morphology Not Reportable 05/29/17 06:16 Dimorphic RBCs Not Reportable 05/29/17 06:16 Polychromasia Not Reportable 05/29/17 06:16 Hypochromasia Not Reportable 05/29/17 06:16 Poikilocytosis 1+ 05/29/17 06:16 Anisocytosis 1+ 05/29/17 06:16 Microcytosis Not Reportable 05/29/17 06:16 Macrocytosis Not Reportable 05/29/17 06:16 Spherocytes Not Reportable 05/29/17 06:16 Pappenheimer Bodies Not Reportable 05/29/17 06:16 Sickle Cells Not Reportable 05/29/17 06:16 Target Cells Not Reportable 05/29/17 06:16 Tear Drop Cells Not Reportable 05/29/17 06:16 Ovalocytes Not Reportable 05/29/17 06:16 Helmet Cells Not Reportable 05/29/17 06:16 [place] Bodies Not Reportable 05/29/17 06:16 [place] Rings Not Reportable 05/29/17 06:16 [place] Cells Not Reportable 05/29/17 06:16 Bite Cells Not Reportable 05/29/17 06:16 Crenated Cell Not Reportable 05/29/17 06:16 Elliptocytes Not Reportable 05/29/17 06:16 Acanthocytes (Spur) Not Reportable 05/29/17 06:16 Rouleaux Not Reportable 05/29/17 06:16 Hemoglobin C Crystals Not Reportable 05/29/17 06:16 Schistocytes Not Reportable 05/29/17 06:16 Malaria parasites Not Reportable 05/29/17 06:16 Hector Bodies Not Reportable 05/29/17 06:16 Hem Pathologist Commnt No 05/29/17 06:16 PT 17.9 Sec. (12.2-14.9) H 05/24/17 07:31 INR 1.40 (0.87-1.13) H 05/24/17 07:31 APTT 35.6 Sec. (24.2-36.6) 05/24/17 07:31 Sodium 134 mmol/L (137-145) L 05/29/17 06:16 Potassium 4.7 mmol/L (3.6-5.0) 05/29/17 06:16 Chloride 88.2 mmol/L (98-107) L 05/29/17 06:16 Carbon Dioxide 22 mmol/L (22-30) 05/29/17 06:16 Anion Gap 29 mmol/L 05/29/17 06:16 BUN 59 mg/dL (7-17) H 05/29/17 06:16 Creatinine 7.9 mg/dL (0.7-1.2) H 05/29/17 06:16 Estimated GFR 6 ml/min 05/29/17 06:16 BUN/Creatinine Ratio 7 % 05/29/17 06:16 Glucose 202 mg/dL (65-100) H 05/29/17 06:16 POC Glucose 241 (70-105) H 05/29/17 16:00 Hemoglobin A1c 5.7 % (4-6) 05/25/17 07:42 Calcium 8.1 mg/dL (8.4-10.2) L 05/29/17 06:16 Total Bilirubin 0.40 mg/dL (0.1-1.2) 05/26/17 05:29 AST 30 units/L (5-40) 05/26/17 05:29 ALT 13 units/L (7-56) 05/26/17 05:29 Alkaline Phosphatase 183 units/L (35-129) H 05/26/17 05:29 Total Creatine Kinase 65 units/L (30-135) 05/24/17 07:31 CK-MB (CK-2) 3.8 ng/mL (0.0-4.0) 05/24/17 07:31 CK-MB (CK-2) Rel Index 5.8 (0-4) H 05/24/17 07:31 Troponin T 0.106 ng/mL (0.00-0.029) H* 05/24/17 07:31 NT-Pro-B Natriuret Pep > 01180 pg/mL (0-900) H 05/24/17 07:21 Total Protein 6.9 g/dL (6.3-8.2) 05/26/17 05:29 Albumin 4.4 g/dL (3.9-5) 05/26/17 05:29 Albumin/Globulin Ratio 1.8 % 05/26/17 05:29 Triglycerides 86 mg/dL (2-149) 05/24/17 07:31 Cholesterol 112 mg/dL (50-199) 05/24/17 07:31 LDL Cholesterol Direct 32 mg/dL (50-130) L 05/24/17 07:31 HDL Cholesterol 63 mg/dL (40-59) H 05/24/17 07:31 Cholesterol/HDL Ratio 1.77 % 05/24/17 07:31
[2017-05-29 20:37] VITALS: BP 121/61
[2017-05-29] MEDS ORDERED: NACL 0.9% 100 ML IV PRN (20:55)
== END 2017-05-30 00:35 | disposition home or self-care (01) | DRG 291 ==
LOC: ED 06:58 → 4A 12:22
PROVIDERS: ADMIT Internal Medicine; ATTEND Internal Medicine
PROC: 5A1D70Z Performance of Urinary Filtration, Intermittent, Less than 6 Hours Per Day (ICD-10-PCS; 2017-05-24)
PROC: 3E0234Z Introduction of Serum, Toxoid and Vaccine into Muscle, Percutaneous Approach (ICD-10-PCS; principal; 2017-05-25)
PROC: 5A1D70Z Performance of Urinary Filtration, Intermittent, Less than 6 Hours Per Day (ICD-10-PCS; 2017-05-26)
PROC: 5A1D70Z Performance of Urinary Filtration, Intermittent, Less than 6 Hours Per Day (ICD-10-PCS; 2017-05-29)
DX: I13.2 Hypertensive heart and chronic kidney disease with heart failure and with stage 5 chronic kidney disease, or end stage renal disease (principal); J96.01 Acute respiratory failure with hypoxia; N18.6 End stage renal disease; I50.33 Acute on chronic diastolic (congestive) heart failure; J45.901 Unspecified asthma with (acute) exacerbation; I25.10 Atherosclerotic heart disease of native coronary artery without angina pectoris; E11.22 Type 2 diabetes mellitus with diabetic chronic kidney disease; E87.70 Fluid overload, unspecified; J44.9 Chronic obstructive pulmonary disease, unspecified; F32.9 Major depressive disorder, single episode, unspecified; K21.9 Gastro-esophageal reflux disease without esophagitis; D64.9 Anemia, unspecified; I27.20 Pulmonary hypertension, unspecified; I35.0 Nonrheumatic aortic (valve) stenosis; Z90.710 Acquired absence of both cervix and uterus; Z95.5 Presence of coronary angioplasty implant and graft; Z79.82 Long term (current) use of aspirin; Z79.899 Other long term (current) drug therapy; Z82.49 Family history of ischemic heart disease and other diseases of the circulatory system; Z95.0 Presence of cardiac pacemaker; Z23 Encounter for immunization
CPT/HCPCS: 36415; 71045; 80048; 80053; 80061; 82550; 82553; 82962; 83036; 83880; 84484; 85007; 85025; 85610; 85730; 90732; 93005; 93010; 93306; 94640; 94760; 96372; A9270-GY; J1644; J1815; J2920; J7030; J7040

== ENCOUNTER 2017-07-10 02:02 | Emergency (ER) | payer MEDICARE ==
[2017-07-10 02:57] VITALS: BP 130/60
[2017-07-10 03:07] LABS: Calcium 7.7 mg/dL (8.4-10.2)
[2017-07-10 03:15] LABS: Hematocrit 30.7 % (30.3-42.9); Hemoglobin 9.6 gm/dl (10.1-14.3); Mean Corpuscular HGB Conc 31 % (30-34); Mean Corpuscular Hemoglobin 31 pg (28-32); Mean Corpuscular Volume 100 fl (79-97); Red Blood Count 3.08 M/mm3 (3.65-5.03)
[2017-07-10 03:16] LABS: Basophils # (Auto) 0.1 K/mm3 (0.0-0.1); Basophils % (Auto) 1.4 % (0.0-1.8); Eosinophils # (Auto) 0.7 K/mm3 (0.0-0.4); Eosinophils % (Auto) 12.7 % (0.0-4.3); Lymphocytes # (Auto) 0.4 K/mm3 (1.2-5.4); Lymphocytes % (Auto) 6.6 % (13.4-35.0); Monocytes # (Auto) 0.3 K/mm3 (0.0-0.8); Monocytes % (Auto) 5.9 % (0.0-7.3); Platelet Count 154 K/mm3 (140-440); Red Cell Distribution Width 20.2 % (13.2-15.2)
--- NOTE | 2017-07-10 03:36 | XRay Report ---
FINAL REPORT PROCEDURE: XR CHEST 1V AP TECHNIQUE: Chest radiograph anteroposterior view. CPT 87603 HISTORY: Shortness of breath COMPARISON: No prior studies are available for comparison. FINDINGS: Heart: Normal. Mediastinum/Vessels: There is calcified plaque in the thoracic aorta.. Lungs/Pleural space: There is suboptimal inspiration. There are mild fibrotic changes. There are no active infiltrates. There is no pleural effusion or pneumothorax.. Bony thorax: There is kyphosis of the thoracic spine.. Life support devices: None. IMPRESSION: No acute cardiopulmonary abnormality.
[2017-07-10] MEDS ORDERED: ATROVENT IH ONE (03:51)
[2017-07-10] MEDS ORDERED: PROVENTIL IH ONE (03:51)
--- NOTE | 2017-07-10 03:56 | Emergency Department Report ---
ED Shortness of Breath HPI - General Chief Complaint: Dyspnea/Respdistress Stated Complaint: BREATHING PROBLEMS Time Seen by Provider: 07/10/17 03:46 Source: patient, EMS Mode of arrival: Stretcher Limitations: No Limitations - History of Present Illness Initial Comments: Patient is 77 years old female with history of end-stage renal disease on hemodialysis, COPD, hypertension and diabetes. Patient presented with shortness of breath, on and off for the last 3-4 days. Patient stated that she did not missed dialysis and she is supposed to be dialyzed today. She denied any fever, chest pain or productive cough. Patient denied any nausea or vomiting. No focal weakness, numbness or tingling sensation. MD Complaint: shortness of breath, cough -: days(s) Consistency: intermittent Improves With: oxygen, bronchodilators Known History Of: COPD, asthma, congestive heart failure Associated Symptoms: denies other symptoms - Related Data Home Medications Medication Instructions Recorded Confirmed Last Taken Cinacalcet [Sensipar] 30 mg PO QDAY 04/20/13 06/16/17 2 Days Ago ~06/14/17 FLUoxetine HCL [PROzac] 20 mg PO DAILY 04/20/13 06/16/17 2 Days Ago ~06/14/17 Clopidogrel [Plavix] 75 mg PO QDAY 05/24/17 06/16/17 2 Days Ago ~06/14/17 Omeprazole Magnesium [PriLOSEC Otc] 40 mg PO QDAY 05/24/17 06/16/17 2 Days Ago ~06/14/17 Atorvastatin [Lipitor Tab] 40 mg PO QHS 06/16/17 06/16/17 2 Days Ago ~06/14/17 Calcium Acetate 667 mg PO TID 06/16/17 06/16/17 2 Days Ago ~06/14/17 Carvedilol [Coreg] 25 mg PO BID 06/16/17 06/16/17 2 Days Ago ~06/14/17 Gabapentin [Gralise] 300 mg PO HS 06/16/17 06/16/17 2 Days Ago ~06/14/17 Lisinopril [Zestril] 5 mg PO QDAY 06/16/17 06/16/17 2 Days Ago ~06/14/17 amLODIPine [Norvasc] 5 mg PO DAILY 06/16/17 06/16/17 2 Days Ago ~06/14/17 Previous Rx's Medication Instructions Recorded Last Taken Type Albuterol Sulfate [Albuterol 0.63% 0.63 mg IH TID PRN #50 dose 04/23/13 1 Day Ago Rx NEBS] ~06/15/17 ALBUTEROL Inhaler [ProAir HFA 1 - 2 puff IH Q4H PRN #1 inha 09/02/15 1 Day Ago Rx Inhaler] ~06/15/17 Aspirin EC [Aspirin Enteric Coated 81 mg PO QDAY #30 tablet 05/19/16 2 Days Ago Rx TAB] ~06/14/17 Allergies Allergy/AdvReac Type Severity Reaction Status Date / Time No Known Allergies Allergy Unverified 04/20/13 02:00 ED Review of Systems ROS: Stated complaint: BREATHING PROBLEMS Other details as noted in HPI Comment: All other systems reviewed and negative Constitutional: denies: chills, fever Respiratory: orthopnea, shortness of breath, SOB with exertion, SOB at rest, wheezing. denies: cough Gastrointestinal: denies: abdominal pain, nausea, vomiting, diarrhea, constipation, hematemesis, melena, hematochezia Genitourinary: denies: urgency, frequency, hematuria Musculoskeletal: denies: back pain Neurological: denies: headache, weakness, numbness, paresthesias ED Past Medical Hx - Past Medical History Hx Hypertension: Yes Hx Heart Attack/AMI: No Hx Congestive Heart Failure: Yes Hx Diabetes: Yes Hx Deep Vein Thrombosis: No Hx Pulmonary Embolism: No Hx Liver Disease: No Hx Renal Disease: Yes (HD T TH Sat) Hx Kidney Stones: No Hx Asthma: Yes Hx COPD: No Hx Tuberculosis: No Hx HIV: No Additional medical history: 05/14/2016 Echocardiogram EF 55- 60% with moderate concentric LVH and moderate aortic stenosis - Surgical History Hx Coronary Stent: Yes Hx Pacemaker: No Hx Internal Defibrillator: No Additional Surgical History: hysterectomy. fistula to left upper arm. Cardiac cath May 2016 requiring PCI - Social History Smoking Status: Former Smoker Substance Use Type: None - Medications Home Medications: Home Medications Medication Instructions Recorded Confirmed Last Taken Type Cinacalcet [Sensipar] 30 mg PO QDAY 04/20/13 06/16/17 2 Days Ago History ~06/14/17 FLUoxetine HCL [PROzac] 20 mg PO DAILY 04/20/13 06/16/17 2 Days Ago History ~06/14/17 Albuterol Sulfate [Albuterol 0.63% 0.63 mg IH TID PRN #50 dose 04/23/13 1 Day Ago Rx NEBS] ~06/15/17 ALBUTEROL Inhaler [ProAir HFA 1 - 2 puff IH Q4H PRN #1 inha 09/02/15 06/16/17 1 Day Ago Rx Inhaler] ~06/15/17 Aspirin EC [Aspirin Enteric Coated 81 mg PO QDAY #30 tablet 05/19/16 06/16/17 2 Days Ago Rx TAB] ~06/14/17 Clopidogrel [Plavix] 75 mg PO QDAY 05/24/17 06/16/17 2 Days Ago History ~06/14/17 Omeprazole Magnesium [PriLOSEC Otc] 40 mg PO QDAY 05/24/17 06/16/17 2 Days Ago History ~06/14/17 Atorvastatin [Lipitor Tab] 40 mg PO QHS 06/16/17 06/16/17 2 Days Ago History ~06/14/17 Calcium Acetate 667 mg PO TID 06/16/17 06/16/17 2 Days Ago History ~06/14/17 Carvedilol [Coreg] 25 mg PO BID 06/16/17 06/16/17 2 Days Ago History ~06/14/17 Gabapentin [Gralise] 300 mg PO HS 06/16/17 06/16/17 2 Days Ago History ~06/14/17 Lisinopril [Zestril] 5 mg PO QDAY 06/16/17 06/16/17 2 Days Ago History ~06/14/17 amLODIPine [Norvasc] 5 mg PO DAILY 06/16/17 06/16/17 2 Days Ago History ~06/14/17 ED Physical Exam - General Limitations: No Limitations General appearance: alert, in no apparent distress - Head Head exam: Present: atraumatic, normocephalic, normal inspection - Eye Eye exam: Present: normal appearance, PERRL - ENT ENT exam: Present: normal exam, normal orophraynx, mucous membranes moist - Neck Neck exam: Present: normal inspection, full ROM. Absent: tenderness, meningismus, lymphadenopathy - Respiratory Respiratory exam: Present: normal lung sounds bilaterally, wheezes. Absent: respiratory distress, rales, rhonchi, stridor, accessory muscle use, decreased breath sounds, prolonged expiratory - Cardiovascular Cardiovascular Exam: Present: regular rate, normal rhythm, normal heart sounds - GI/Abdominal GI/Abdominal exam: Present: soft, normal bowel sounds. Absent: distended, tenderness, guarding, rebound, rigid, mass, bruit, pulsatile mass, hernia - Extremities Exam Extremities exam: Present: normal inspection, full ROM, pedal edema. Absent: tenderness, normal capillary refill, calf tenderness - Back Exam Back exam: Present: normal inspection, full ROM. Absent: tenderness, CVA tenderness (R), CVA tenderness (L), muscle spasm, paraspinal tenderness - Neurological Exam Neurological exam: Present: alert, oriented X3, CN II-XII intact, normal gait - Skin Skin exam: Present: warm, intact, normal color ED Course Vital Signs 07/10/17 02:21 Temperature 98.8 F Pulse Rate 72 Respiratory 18 Rate Blood Pressure 130/60 O2 Sat by Pulse 100 Oximetry - Reevaluation(s) Reevaluation #1: 07/10/17 04:54 Patient is in no acute distress. Speaking in full sentences. Patient labs completely showed no acute finding. Chest x-ray is unremarkable. I believe the patient will benefits a lot from her dialysis today. Symptoms improved after breathing treatments. Patient will be discharged home to her dialysis center and to follow-up with her primary doctor in the next 2-3 days. ED Medical Decision Making - Lab Data Result diagrams: 07/10/17 02:41 07/10/17 02:41 Critical care attestation.: If time is entered above; I have spent that time in minutes in the direct care of this critically ill patient, excluding procedure time. ED Disposition Clinical Impression: End-stage renal disease on hemodialysis, Dyspnea Disposition: DC-01 TO HOME OR SELFCARE Is pt being admited?: No Condition: Stable Instructions: Chronic Kidney Disease (ED), Bronchospasm (ED) Referrals: CARMELA VILLASEÑOR MD [Primary Care Provider] - 3-5 Days
== END 2017-07-10 07:14 | disposition home or self-care (01) ==
LOC: ED 02:02
DX: J44.9 Chronic obstructive pulmonary disease, unspecified (principal); I13.2 Hypertensive heart and chronic kidney disease with heart failure and with stage 5 chronic kidney disease, or end stage renal disease; E11.22 Type 2 diabetes mellitus with diabetic chronic kidney disease; N18.6 End stage renal disease; Z99.2 Dependence on renal dialysis; Z90.710 Acquired absence of both cervix and uterus; Z87.891 Personal history of nicotine dependence; Z79.82 Long term (current) use of aspirin
CPT/HCPCS: 36415; 71045; 80048; 85025; 94640; 99284; J2930

== ENCOUNTER 2017-08-03 00:34 | Emergency (ER) | payer MEDICARE ==
[2017-08-03] MEDS ORDERED: ZOFRAN IV ONE (01:39)
[2017-08-03 01:40] LABS: Basophils # (Auto) 0.1 K/mm3 (0.0-0.1); Basophils % (Auto) 1.7 % (0.0-1.8); Eosinophils # (Auto) 0.2 K/mm3 (0.0-0.4); Eosinophils % (Auto) 4.4 % (0.0-4.3); Hematocrit 31.6 % (30.3-42.9); Hemoglobin 9.6 gm/dl (10.1-14.3); Lymphocytes # (Auto) 0.5 K/mm3 (1.2-5.4); Lymphocytes % (Auto) 10.3 % (13.4-35.0); Mean Corpuscular HGB Conc 31 % (30-34); Mean Corpuscular Hemoglobin 32 pg (28-32); Mean Corpuscular Volume 105 fl (79-97); Monocytes # (Auto) 0.4 K/mm3 (0.0-0.8); Monocytes % (Auto) 8.8 % (0.0-7.3); Platelet Count 143 K/mm3 (140-440); Red Blood Count 3.02 M/mm3 (3.65-5.03)
--- NOTE | 2017-08-03 01:43 | Emergency Department Report ---
ED Abdominal Pain HPI - General Chief Complaint: Nausea/Vomiting/Diarrhea Stated Complaint: ABD PAIN/DIARRHEA Time Seen by Provider: 08/03/17 01:35 Source: patient, EMS Mode of arrival: Stretcher Limitations: No Limitations - History of Present Illness Initial Comments: Patient is 77 years old female, and decision renal disease on hemodialysis, hypertension, diabetes and asthma. Patient presented to the ER complaining of three-day history of nausea vomiting and diarrhea. Patient describes diarrhea as watery diarrhea no blood or mucus. Patient denied any fever, chest pain or shortness of breath. Patient had dialysis yesterday. MD Complaint: abdominal pain -: days(s) Location: diffuse Radiation: none Migration to: no migration Severity scale (0 -10): 5 Quality: cramping Improves With: nothing Associated Symptoms: nausea, vomiting, diarrhea - Related Data Home Medications Medication Instructions Recorded Confirmed Last Taken Cinacalcet [Sensipar] 30 mg PO QDAY 04/20/13 06/16/17 2 Days Ago ~06/14/17 FLUoxetine HCL [PROzac] 20 mg PO DAILY 04/20/13 06/16/17 2 Days Ago ~06/14/17 Clopidogrel [Plavix] 75 mg PO QDAY 05/24/17 06/16/17 2 Days Ago ~06/14/17 Omeprazole Magnesium [PriLOSEC Otc] 40 mg PO QDAY 05/24/17 06/16/17 2 Days Ago ~06/14/17 Atorvastatin [Lipitor Tab] 40 mg PO QHS 06/16/17 06/16/17 2 Days Ago ~06/14/17 Calcium Acetate 667 mg PO TID 06/16/17 06/16/17 2 Days Ago ~06/14/17 Carvedilol [Coreg] 25 mg PO BID 06/16/17 06/16/17 2 Days Ago ~06/14/17 Gabapentin [Gralise] 300 mg PO HS 06/16/17 06/16/17 2 Days Ago ~06/14/17 Lisinopril [Zestril] 5 mg PO QDAY 06/16/17 06/16/17 2 Days Ago ~06/14/17 amLODIPine [Norvasc] 5 mg PO DAILY 06/16/17 06/16/17 2 Days Ago ~06/14/17 Previous Rx's Medication Instructions Recorded Last Taken Type Albuterol Sulfate [Albuterol 0.63% 0.63 mg IH TID PRN #50 dose 04/23/13 1 Day Ago Rx NEBS] ~06/15/17 ALBUTEROL Inhaler [ProAir HFA 1 - 2 puff IH Q4H PRN #1 inha 09/02/15 1 Day Ago Rx Inhaler] ~06/15/17 Aspirin EC [Aspirin Enteric Coated 81 mg PO QDAY #30 tablet 05/19/16 2 Days Ago Rx TAB] ~06/14/17 ALBUTEROL Inhaler [ProAir HFA 2 puff IH QID PRN #1 inhalation 07/10/17 Unknown Rx Inhaler] Prednisone [predniSONE (Mario) ER 40 mg PO QDAY #40 tablet. 07/10/17 Unknown Rx TAB] Allergies Allergy/AdvReac Type Severity Reaction Status Date / Time No Known Allergies Allergy Unverified 04/20/13 02:00 ED Review of Systems ROS: Stated complaint: ABD PAIN/DIARRHEA Other details as noted in HPI Comment: All other systems reviewed and negative Constitutional: denies: chills, fever Respiratory: denies: cough, orthopnea, shortness of breath, SOB with exertion, SOB at rest, wheezing Cardiovascular: denies: chest pain, palpitations, dyspnea on exertion Gastrointestinal: abdominal pain, nausea, vomiting, diarrhea. denies: hematemesis, melena, hematochezia Neurological: denies: headache, weakness, numbness, paresthesias, confusion, abnormal gait, vertigo ED Past Medical Hx - Past Medical History Previous Medical History?: Yes Hx Hypertension: Yes Hx Heart Attack/AMI: No Hx Congestive Heart Failure: Yes Hx Diabetes: Yes Hx Deep Vein Thrombosis: No Hx Pulmonary Embolism: No Hx Liver Disease: No Hx Renal Disease: Yes (HD T TH Sat) Hx Kidney Stones: No Hx Asthma: Yes Hx COPD: No Hx Tuberculosis: No Hx HIV: No Additional medical history: 05/14/2016 Echocardiogram EF 55- 60% with moderate concentric LVH and moderate aortic stenosis - Surgical History Past Surgical History?: Yes Hx Coronary Stent: Yes Hx Pacemaker: No Hx Internal Defibrillator: No Additional Surgical History: hysterectomy. fistula to left upper arm. Cardiac cath May 2016 requiring PCI - Social History Smoking Status: Former Smoker Substance Use Type: None - Medications Home Medications: Home Medications Medication Instructions Recorded Confirmed Last Taken Type Cinacalcet [Sensipar] 30 mg PO QDAY 04/20/13 06/16/17 2 Days Ago History ~06/14/17 FLUoxetine HCL [PROzac] 20 mg PO DAILY 04/20/13 06/16/17 2 Days Ago History ~06/14/17 Albuterol Sulfate [Albuterol 0.63% 0.63 mg IH TID PRN #50 dose 04/23/13 1 Day Ago Rx NEBS] ~06/15/17 ALBUTEROL Inhaler [ProAir HFA 1 - 2 puff IH Q4H PRN #1 inha 09/02/15 06/16/17 1 Day Ago Rx Inhaler] ~06/15/17 Aspirin EC [Aspirin Enteric Coated 81 mg PO QDAY #30 tablet 05/19/16 06/16/17 2 Days Ago Rx TAB] ~06/14/17 Clopidogrel [Plavix] 75 mg PO QDAY 05/24/17 06/16/17 2 Days Ago History ~06/14/17 Omeprazole Magnesium [PriLOSEC Otc] 40 mg PO QDAY 05/24/17 06/16/17 2 Days Ago History ~06/14/17 Atorvastatin [Lipitor Tab] 40 mg PO QHS 06/16/17 06/16/17 2 Days Ago History ~06/14/17 Calcium Acetate 667 mg PO TID 06/16/17 06/16/17 2 Days Ago History ~06/14/17 Carvedilol [Coreg] 25 mg PO BID 06/16/17 06/16/17 2 Days Ago History ~06/14/17 Gabapentin [Gralise] 300 mg PO HS 06/16/17 06/16/17 2 Days Ago History ~06/14/17 Lisinopril [Zestril] 5 mg PO QDAY 06/16/17 06/16/17 2 Days Ago History ~06/14/17 amLODIPine [Norvasc] 5 mg PO DAILY 06/16/17 06/16/17 2 Days Ago History ~06/14/17 ALBUTEROL Inhaler [ProAir HFA 2 puff IH QID PRN #1 inhalation 07/10/17 Unknown Rx Inhaler] Prednisone [predniSONE (Mario) ER 40 mg PO QDAY #40 tablet. 07/10/17 Unknown Rx TAB] ED Physical Exam - General Limitations: No Limitations General appearance: alert, in no apparent distress - Head Head exam: Present: atraumatic, normocephalic, normal inspection - Eye Eye exam: Present: normal appearance, PERRL - ENT ENT exam: Present: normal exam, normal orophraynx, mucous membranes moist - Neck Neck exam: Present: normal inspection, full ROM. Absent: tenderness, meningismus, lymphadenopathy, thyromegaly - Respiratory Respiratory exam: Present: normal lung sounds bilaterally. Absent: respiratory distress, wheezes, rales, rhonchi, stridor, chest wall tenderness, accessory muscle use, decreased breath sounds, prolonged expiratory - Cardiovascular Cardiovascular Exam: Present: regular rate, normal rhythm, normal heart sounds - GI/Abdominal GI/Abdominal exam: Present: soft, normal bowel sounds. Absent: distended, tenderness, guarding, rebound, rigid, organomegaly, mass, bruit, pulsatile mass - Extremities Exam Extremities exam: Present: normal inspection, full ROM, normal capillary refill. Absent: tenderness, pedal edema, calf tenderness - Back Exam Back exam: Present: normal inspection, full ROM. Absent: CVA tenderness (R), CVA tenderness (L), muscle spasm, paraspinal tenderness, vertebral tenderness, rash noted - Neurological Exam Neurological exam: Present: alert, oriented X3, CN II-XII intact, normal gait - Skin Skin exam: Present: warm, intact, normal color ED Course Vital Signs 08/03/17 08/03/17 08/03/17 00:53 01:00 02:01 Temperature 97.8 F Pulse Rate 65 63 66 Respiratory 18 13 Rate Blood Pressure 116/65 111/59 111/59 O2 Sat by Pulse 100 100 Oximetry 08/03/17 03:00 Temperature Pulse Rate 77 Respiratory 18 Rate Blood Pressure 120/60 O2 Sat by Pulse 100 Oximetry ED Medical Decision Making - Lab Data Result diagrams: 08/03/17 01:25 08/03/17 01:25 - Radiology Data Radiology results: report reviewed Referring Physician: DELMER MAGDALENO Patient Name: PAULINE KENNEY Date of : 1940 Sex: Female Report Date: 2017-08-03 Report Status: Finalized Findings [facility] [address] [place] [address] Ultrasound Report Signed Patient: PAULINE KENNEY MR#: [id number] : 1940 Acct:[id number] Age/Sex: 77 / F ADM Date: 08/03/17 Loc: ED Attending Dr: Ordering Physician: DELMER MAGDALENO Date of Service: 08/03/17 Procedure(s): US abdomen limited Accession Number(s): [id number] cc: DELMER MAGDALENO FINAL REPORT PROCEDURE: US ABDOMEN LIMITED TECHNIQUE: Real-time sonography in multiple planes of the gallbladder fossa and CBD with imaging of the adjacent liver, pancreas, and right kidney was performed with image documentation. CPT 95525 HISTORY: abdominal pain COMPARISON: No prior studies are available for comparison. FINDINGS: Liver: Normal size and echotexture with no evidence of cystic or solid mass lesion. Gallbladder: There are gallstones. Gallbladder wall is mildly thickened at 3.5 millimeters. There is minimal pericholecystic fluid.. Intrahepatic bile ducts: Normal . Extrahepatic bile ducts: Normal . Pancreas: Normal as visualized with suboptimal depiction of the pancreatic tail. Right kidney: The right kidney is atrophic and echogenic. There are multiple cysts. There are no stones. There is no hydronephrosis.. Other: Incidental right pleural effusion.. IMPRESSION: There is cholelithiasis with possible evidence of cholecystitis. Please correlate clinically. There is no biliary ductal dilatation. There is a right pleural effusion. Transcribed By: CO Dictated By: NOEL COLEMAN MD Electronically Authenticated By: NOEL COLEMAN MD Signed Date/Time: 08/03/17518 DD/ 8 TD/TT: 08/03/17518 Referring Physician: DELMER MAGDALENO Patient Name: PAULINE KENNEY Date of : 1940 Sex: Female Report Date: 2017-08-03 Report Status: Finalized Findings [facility] [address] [place] [address] Cat Scan Report Signed Patient: PAULINE KENNEY MR#: [id number] : 1940 Acct:[id number] Age/Sex: 77 / F ADM Date: 08/03/17 Loc: ED Attending Dr: Ordering Physician: DELMER MAGDALENO Date of Service: 08/03/17 Procedure(s): CT abdomen pelvis wo con Accession Number(s): [id number] cc: ARRONANGELO PraveenBrennan MAGDALENO FINAL REPORT PROCEDURE: CT ABDOMEN PELVIS WO CON TECHNIQUE: Computerized axial tomography of the abdomen and pelvis was performed without intravenous contrast. This study is performed without intravascular contrast material and its sensitivity for abdominal and pelvic pathology, including neoplasms, inflammation, abscess, free fluid, thrombosis, arterial dissection and infarction, is reduced compared with a contrast enhanced study. HISTORY: ABDOMINAL PAIN COMPARISON: No prior studies are available for comparison. FINDINGS: Visualized lower thorax: The heart is enlarged. There is a pericardial effusion. There is a right pleural effusion.. Liver: Normal size and attenuation. Spleen: Normal size and attenuation. Gallbladder and biliary system: There is cholelithiasis. There is gallbladder wall thickening CIS dishes for cholecystitis. There is no biliary ductal dilatation.. Pancreas: Normal. Adrenals: Normal. Kidneys: There atrophy of the kidneys. There are intrarenal vascular calcifications. There are bilateral kidney cysts. There is no hydronephrosis. GI tract: There is no bowel obstruction, colitis or enteritis. The appendix is not identified.. Lymph nodes and mesentery: Normal. Vasculature: There is calcified plaque in the abdominal aorta and branches. There is no aneurysm.. Bladder: Normal. Reproductive organs: There has been hysterectomy. Peritoneum: There is mild ascites. There is no free air.. Musculoskeletal structures: There is diffuse sclerosis of the bony structures suggesting renal osteodystrophy. There are defects in the superior endplates of L1, L2, L3 and L4 and the inferior endplate of L3 and L4 suggesting Schmorl's nodes. There is degenerative disc change at L3-L4.. Other: None. IMPRESSION: There is cholelithiasis. There is gallbladder wall thickening CIS dishes for cholecystitis. There is no biliary ductal dilatation.. There atrophy of the kidneys. There are intrarenal vascular calcifications. There are bilateral kidney cysts. There is no hydronephrosis. There is no bowel obstruction, colitis or enteritis. The appendix is not identified.. There has been hysterectomy. There is mild ascites. There is no free air.. . Transcribed By: CO Dictated By: NOEL COLEMAN MD Electronically Authenticated By: NOEL COLEMAN MD Signed Date/Time: 08/03/17306 DD/ 6 TD/TT: 08/03/17306 - Medical Decision Making Patient stated that she is feeling much better. No vomiting no abdominal pain. On exam there is no right upper quadrant tenderness or Reyna sign. There is no clinical evidence of acute cholecystitis. I informed the patient about her gallbladder stone and the need to follow-up with her surgeon in the next 2-3 days. I also advised her to return to the ER if her symptoms are not improving. Critical care attestation.: If time is entered above; I have spent that time in minutes in the direct care of this critically ill patient, excluding procedure time. ED Disposition Clinical Impression: Abdominal pain, Vomiting and diarrhea, End-stage renal disease on hemodialysis Disposition: DC-01 TO HOME OR SELFCARE Is pt being admited?: No Condition: Stable Instructions: Biliary Colic (ED), Acute Nausea and Vomiting (ED) Referrals: CARMELA VILLASEÑOR MD [Primary Care Provider] - 3-5 Days
[2017-08-03 01:51] LABS: Red Cell Distribution Width 21.5 % (13.2-15.2)
[2017-08-03 01:52] LABS: Calcium 9.8 mg/dL (8.4-10.2)
--- NOTE | 2017-08-03 03:12 | Cat Scan Report ---
FINAL REPORT PROCEDURE: CT ABDOMEN PELVIS WO CON TECHNIQUE: Computerized axial tomography of the abdomen and pelvis was performed without intravenous contrast. This study is performed without intravascular contrast material and its sensitivity for abdominal and pelvic pathology, including neoplasms, inflammation, abscess, free fluid, thrombosis, arterial dissection and infarction, is reduced compared with a contrast enhanced study. HISTORY: ABDOMINAL PAIN COMPARISON: No prior studies are available for comparison. FINDINGS: Visualized lower thorax: The heart is enlarged. There is a pericardial effusion. There is a right pleural effusion.. Liver: Normal size and attenuation. Spleen: Normal size and attenuation. Gallbladder and biliary system: There is cholelithiasis. There is gallbladder wall thickening CIS dishes for cholecystitis. There is no biliary ductal dilatation.. Pancreas: Normal. Adrenals: Normal. Kidneys: There atrophy of the kidneys. There are intrarenal vascular calcifications. There are bilateral kidney cysts. There is no hydronephrosis. GI tract: There is no bowel obstruction, colitis or enteritis. The appendix is not identified.. Lymph nodes and mesentery: Normal. Vasculature: There is calcified plaque in the abdominal aorta and branches. There is no aneurysm.. Bladder: Normal. Reproductive organs: There has been hysterectomy. Peritoneum: There is mild ascites. There is no free air.. Musculoskeletal structures: There is diffuse sclerosis of the bony structures suggesting renal osteodystrophy. There are defects in the superior endplates of L1, L2, L3 and L4 and the inferior endplate of L3 and L4 suggesting Schmorl's nodes. There is degenerative disc change at L3-L4.. Other: None. IMPRESSION: There is cholelithiasis. There is gallbladder wall thickening CIS dishes for cholecystitis. There is no biliary ductal dilatation.. There atrophy of the kidneys. There are intrarenal vascular calcifications. There are bilateral kidney cysts. There is no hydronephrosis. There is no bowel obstruction, colitis or enteritis. The appendix is not identified.. There has been hysterectomy. There is mild ascites. There is no free air.. .
[2017-08-03] MEDS ORDERED: NACL 0.9% 500 ML 500 ML IV ONE (03:39)
--- NOTE | 2017-08-03 05:24 | Ultrasound Report ---
FINAL REPORT PROCEDURE: US ABDOMEN LIMITED TECHNIQUE: Real-time sonography in multiple planes of the gallbladder fossa and CBD with imaging of the adjacent liver, pancreas, and right kidney was performed with image documentation. CPT 44637 HISTORY: abdominal pain COMPARISON: No prior studies are available for comparison. FINDINGS: Liver: Normal size and echotexture with no evidence of cystic or solid mass lesion. Gallbladder: There are gallstones. Gallbladder wall is mildly thickened at 3.5 millimeters. There is minimal pericholecystic fluid.. Intrahepatic bile ducts: Normal . Extrahepatic bile ducts: Normal . Pancreas: Normal as visualized with suboptimal depiction of the pancreatic tail. Right kidney: The right kidney is atrophic and echogenic. There are multiple cysts. There are no stones. There is no hydronephrosis.. Other: Incidental right pleural effusion.. IMPRESSION: There is cholelithiasis with possible evidence of cholecystitis. Please correlate clinically. There is no biliary ductal dilatation. There is a right pleural effusion.
[2017-08-03 07:47] VITALS: BP 125/68
== END 2017-08-03 08:00 | disposition home or self-care (01) ==
LOC: ED 00:34
DX: R10.9 Unspecified abdominal pain (principal); R11.2 Nausea with vomiting, unspecified; R19.7 Diarrhea, unspecified; E11.22 Type 2 diabetes mellitus with diabetic chronic kidney disease; I12.0 Hypertensive chronic kidney disease with stage 5 chronic kidney disease or end stage renal disease; N18.6 End stage renal disease; Z99.2 Dependence on renal dialysis; J45.909 Unspecified asthma, uncomplicated
CPT/HCPCS: 36415; 74176; 76705; 80053; 82140; 83690; 85025; 96374; 99284; J2405; J7040

== ENCOUNTER 2017-09-18 17:43 | Emergency (ER) | payer MEDICARE ==
--- NOTE | 2017-09-18 20:27 | Emergency Department Report ---
ED General Adult HPI - General Chief complaint: Extremity Problem,Nontraumatic Stated complaint: FISTULA BLEED Time Seen by Provider: 09/18/17 20:19 Source: EMS Mode of arrival: Stretcher Limitations: No Limitations, Other - History of Present Illness Initial comments: Patient is 77 years old female history of end stage renal disease on hemodialysis, congestive heart failure, diabetes and hypertension. Patient finished her dialysis today and started bleeding from the fistula site. She stated that she bled for a while until bleeding controlled with pressure bandage. No active bleeding at this moment. Patient denied any dizziness, shortness of breath or weakness. No other symptoms. Patient is asking if she can go home. Severity scale (0 -10): 0 - Related Data Home Medications Medication Instructions Recorded Confirmed Last Taken Cinacalcet [Sensipar] 30 mg PO QDAY 04/20/13 06/16/17 2 Days Ago ~06/14/17 FLUoxetine HCL [PROzac] 20 mg PO DAILY 04/20/13 06/16/17 2 Days Ago ~06/14/17 Clopidogrel [Plavix] 75 mg PO QDAY 05/24/17 06/16/17 2 Days Ago ~06/14/17 Omeprazole Magnesium [PriLOSEC Otc] 40 mg PO QDAY 05/24/17 06/16/17 2 Days Ago ~06/14/17 Atorvastatin [Lipitor Tab] 40 mg PO QHS 06/16/17 06/16/17 2 Days Ago ~06/14/17 Calcium Acetate 667 mg PO TID 06/16/17 06/16/17 2 Days Ago ~06/14/17 Carvedilol [Coreg] 25 mg PO BID 06/16/17 06/16/17 2 Days Ago ~06/14/17 Gabapentin [Gralise] 300 mg PO HS 06/16/17 06/16/17 2 Days Ago ~06/14/17 Lisinopril [Zestril] 5 mg PO QDAY 06/16/17 06/16/17 2 Days Ago ~06/14/17 amLODIPine [Norvasc] 5 mg PO DAILY 06/16/17 06/16/17 2 Days Ago ~06/14/17 Previous Rx's Medication Instructions Recorded Last Taken Type Albuterol Sulfate [Albuterol 0.63% 0.63 mg IH TID PRN #50 dose 04/23/13 1 Day Ago Rx NEBS] ~06/15/17 ALBUTEROL Inhaler [ProAir HFA 1 - 2 puff IH Q4H PRN #1 inha 09/02/15 1 Day Ago Rx Inhaler] ~06/15/17 Aspirin EC [Aspirin Enteric Coated 81 mg PO QDAY #30 tablet 05/19/16 2 Days Ago Rx TAB] ~06/14/17 ALBUTEROL Inhaler [ProAir HFA 2 puff IH QID PRN #1 inhalation 07/10/17 Unknown Rx Inhaler] Prednisone [predniSONE (Mario) ER 40 mg PO QDAY #40 tablet. 07/10/17 Unknown Rx TAB] Ondansetron [Zofran Odt] 4 mg PO Q8HR PRN #14 tab.rapdis 08/03/17 Unknown Rx Allergies Allergy/AdvReac Type Severity Reaction Status Date / Time No Known Allergies Allergy Unverified 04/20/13 02:00 ED Review of Systems ROS: Stated complaint: FISTULA BLEED Other details as noted in HPI Comment: All other systems reviewed and negative Constitutional: denies: chills, fever Respiratory: denies: cough, orthopnea, shortness of breath, SOB with exertion Endocrine: denies: excessive sweating Gastrointestinal: denies: abdominal pain, nausea, vomiting, diarrhea, constipation, hematemesis, hematochezia Genitourinary: denies: urgency, dysuria Neurological: denies: headache, weakness, numbness, paresthesias ED Past Medical Hx - Past Medical History Previous Medical History?: Yes Hx Hypertension: Yes Hx Heart Attack/AMI: No Hx Congestive Heart Failure: Yes Hx Diabetes: Yes Hx Deep Vein Thrombosis: No Hx Pulmonary Embolism: No Hx Liver Disease: No Hx Renal Disease: Yes (HD T TH Sat) Hx Kidney Stones: No Hx Asthma: Yes Hx COPD: No Hx Tuberculosis: No Hx HIV: No Additional medical history: 05/14/2016 Echocardiogram EF 55- 60% with moderate concentric LVH and moderate aortic stenosis - Surgical History Hx Coronary Stent: Yes Hx Pacemaker: No Hx Internal Defibrillator: No Additional Surgical History: hysterectomy. fistula to left upper arm. Cardiac cath May 2016 requiring PCI - Social History Smoking Status: Never Smoker Substance Use Type: None - Medications Home Medications: Home Medications Medication Instructions Recorded Confirmed Last Taken Type Cinacalcet [Sensipar] 30 mg PO QDAY 04/20/13 06/16/17 2 Days Ago History ~06/14/17 FLUoxetine HCL [PROzac] 20 mg PO DAILY 04/20/13 06/16/17 2 Days Ago History ~06/14/17 Albuterol Sulfate [Albuterol 0.63% 0.63 mg IH TID PRN #50 dose 04/23/13 1 Day Ago Rx NEBS] ~06/15/17 ALBUTEROL Inhaler [ProAir HFA 1 - 2 puff IH Q4H PRN #1 inha 09/02/15 06/16/17 1 Day Ago Rx Inhaler] ~06/15/17 Aspirin EC [Aspirin Enteric Coated 81 mg PO QDAY #30 tablet 05/19/16 06/16/17 2 Days Ago Rx TAB] ~06/14/17 Clopidogrel [Plavix] 75 mg PO QDAY 05/24/17 06/16/17 2 Days Ago History ~06/14/17 Omeprazole Magnesium [PriLOSEC Otc] 40 mg PO QDAY 05/24/17 06/16/17 2 Days Ago History ~06/14/17 Atorvastatin [Lipitor Tab] 40 mg PO QHS 06/16/17 06/16/17 2 Days Ago History ~06/14/17 Calcium Acetate 667 mg PO TID 06/16/17 06/16/17 2 Days Ago History ~06/14/17 Carvedilol [Coreg] 25 mg PO BID 06/16/17 06/16/17 2 Days Ago History ~06/14/17 Gabapentin [Gralise] 300 mg PO HS 06/16/17 06/16/17 2 Days Ago History ~06/14/17 Lisinopril [Zestril] 5 mg PO QDAY 06/16/17 06/16/17 2 Days Ago History ~06/14/17 amLODIPine [Norvasc] 5 mg PO DAILY 06/16/17 06/16/17 2 Days Ago History ~06/14/17 ALBUTEROL Inhaler [ProAir HFA 2 puff IH QID PRN #1 inhalation 07/10/17 Unknown Rx Inhaler] Prednisone [predniSONE (Mario) ER 40 mg PO QDAY #40 tablet. 07/10/17 Unknown Rx TAB] Ondansetron [Zofran Odt] 4 mg PO Q8HR PRN #14 tab.rapdis 08/03/17 Unknown Rx ED Physical Exam - General Limitations: No Limitations, Other General appearance: alert, in no apparent distress - Head Head exam: Present: atraumatic, normocephalic - Eye Eye exam: Present: normal appearance - ENT ENT exam: Present: normal exam, normal orophraynx, mucous membranes moist - Neck Neck exam: Present: normal inspection, full ROM. Absent: tenderness, meningismus - Respiratory Respiratory exam: Present: normal lung sounds bilaterally. Absent: respiratory distress, wheezes, rales, rhonchi, stridor, accessory muscle use, decreased breath sounds, prolonged expiratory - Cardiovascular Cardiovascular Exam: Present: regular rate, normal rhythm, normal heart sounds - GI/Abdominal GI/Abdominal exam: Present: soft, normal bowel sounds. Absent: distended, tenderness, guarding, rebound, rigid, organomegaly, mass, bruit, pulsatile mass , hernia - Back Exam Back exam: Present: normal inspection, full ROM, CVA tenderness (L) - Neurological Exam Neurological exam: Present: alert, oriented X3, CN II-XII intact, reflexes normal - Skin Skin exam: Present: warm, intact, normal color ED Course Vital Signs 09/18/17 09/18/17 09/18/17 18:38 18:55 19:39 Temperature 98 F 97.7 F Pulse Rate 80 93 H Respiratory 16 16 16 Rate Blood Pressure 137/78 Blood Pressure 144/69 [Right] O2 Sat by Pulse 100 100 97 Oximetry ED Medical Decision Making - Lab Data Result diagrams: 09/18/17 20:26 09/18/17 20:26 - Medical Decision Making Patient HAVE been observed in the ER. No bleeding noticed after removing the pressure dressing. Patient is at bedside ready to take home. Patient vital signs stable. Hemoglobin is 13. I advised patient to return to the ER if he started bleeding again. Critical care attestation.: If time is entered above; I have spent that time in minutes in the direct care of this critically ill patient, excluding procedure time. ED Disposition Clinical Impression: Hemorrhage from arteriovenous dialysis graft Disposition: - TO HOME OR SELFCARE Is pt being admited?: No Condition: Stable Instructions: End-Stage Kidney Disease (ED) Referrals: PRIMARY CARE, [Primary Care Provider] - 3-5 Days
[2017-09-18 20:52] LABS: INR 2.51 (0.87-1.13)
[2017-09-18 20:53] LABS: Partial Thromboplastin Time 46.4 Sec. (24.2-36.6)
[2017-09-18 20:54] LABS: Calcium 9.7 mg/dL (8.4-10.2)
[2017-09-18 21:10] LABS: Basophils # (Auto) 0.1 K/mm3 (0.0-0.1); Basophils % (Auto) 2.1 % (0.0-1.8); Eosinophils # (Auto) 0.1 K/mm3 (0.0-0.4); Eosinophils % (Auto) 4.8 % (0.0-4.3); Hematocrit 41.4 % (30.3-42.9); Hemoglobin 13.1 gm/dl (10.1-14.3); Lymphocytes # (Auto) 0.5 K/mm3 (1.2-5.4); Lymphocytes % (Auto) 16.5 % (13.4-35.0); Mean Corpuscular HGB Conc 32 % (30-34); Mean Corpuscular Hemoglobin 31 pg (28-32); Mean Corpuscular Volume 98 fl (79-97); Monocytes # (Auto) 0.3 K/mm3 (0.0-0.8); Monocytes % (Auto) 8.5 % (0.0-7.3); Platelet Count 100 K/mm3 (140-440); Red Blood Count 4.23 M/mm3 (3.65-5.03)
[2017-09-18] MEDS ORDERED: ZOFRAN IM ONE (21:54)
[2017-09-18] MEDS ORDERED: MORPHINE IM ONE (21:54)
[2017-09-18 23:49] VITALS: BP 126/57
== END 2017-09-18 23:48 | disposition home or self-care (01) ==
LOC: ED 17:43
DX: T82.838A Hemorrhage due to vascular prosthetic devices, implants and grafts, initial encounter (principal); I13.2 Hypertensive heart and chronic kidney disease with heart failure and with stage 5 chronic kidney disease, or end stage renal disease; E11.22 Type 2 diabetes mellitus with diabetic chronic kidney disease; N18.9 Chronic kidney disease, unspecified; Z99.2 Dependence on renal dialysis; J45.909 Unspecified asthma, uncomplicated; Z90.710 Acquired absence of both cervix and uterus
CPT/HCPCS: 36415; 80048; 85025; 85610; 85730; 99283